=== PATIENT | male | born 1965 | race Caucasian/White ===

== ENCOUNTER 2016-08-29 21:25 | Emergency (ER) | payer OTHER ==
[~2016-08-29] VITALS: Ht 182.9 cm; Wt 117.1 kg
[2016-08-29 21:32] VITALS: TEMP 36.7; Ht 182.9 cm; Wt 117.1 kg
[2016-08-29] MEDS ORDERED: ACET-1256 PO (21:47)
[2016-08-29] MEDS ORDERED: KETOROLAC TROMETHAMINE 60 MG/2 ML VIAL IM STA (22:07)
--- NOTE | 2016-08-29 22:47 | DIAGNOSTIC IMAGING REPORT ---
RIGHT ANKLE MIN 3 VIEWS ROUTINE CLINICAL HISTORY: Right ankle pain following fall. COMPARISON: None FINDINGS: Alignment of the right ankle is anatomic. Talar dome is intact. There is no acute fracture. A 1.9 cm bony excrescence arising from the posterior aspect of the distal right tibia is not acute. IMPRESSION: 1. No acute fracture or dislocation of the right ankle. 2. 1.9 cm bony excrescence arising from the posterior aspect if the distal right tibia which is chronic and could reflect an osteochondroma or old trauma. Electronically signed by: Emigdio Adame M.D. 08/29/2016 10:46 PM Dictated Date/Time: 08/29/2016 10:44 PM
--- NOTE | 2016-08-29 22:52 | DIAGNOSTIC IMAGING REPORT ---
RIGHT FOOT MIN 3 VIEWS ROUTINE CLINICAL HISTORY: Right foot pain following fall. COMPARISON: None FINDINGS: The tarsometatarsal joints are intact. A lucency within the medial sesamoid of the great toe likely reflects a bipartite sesamoid. A fracture is considered less likely. There is mild soft tissue swelling at the level the right first metatarsophalangeal joint. No definite acute fracture within the right foot is identified. IMPRESSION: 1. No definite fracture within the right foot. 2. Lucency within the medial sesamoid of the right great toe. This favors a bipartite sesamoid although a nondisplaced sesamoid fracture could appear similar. Electronically signed by: Emigdio Adame M.D. 08/29/2016 10:51 PM Dictated Date/Time: 08/29/2016 10:48 PM
--- NOTE | 2016-08-29 22:53 | DIAGNOSTIC IMAGING REPORT ---
RIGHT SHOULDER MIN 2 VIEWS ROUTINE CLINICAL HISTORY: Right shoulder pain following fall. COMPARISON: None FINDINGS: Alignment of the right shoulder is anatomic. There is no acute fracture. There is mild arthritis of the right acromioclavicular joint. IMPRESSION: No acute fracture or dislocation of the right shoulder. Electronically signed by: Emigdio Adame M.D. 08/29/2016 10:52 PM Dictated Date/Time: 08/29/2016 10:51 PM
--- NOTE | 2016-08-29 22:54 | DIAGNOSTIC IMAGING REPORT ---
LEFT WRIST MIN 3 VIEWS ROUTINE CLINICAL HISTORY: Left wrist pain following fall. COMPARISON: None FINDINGS: Alignment of the left wrist is anatomic. No acute fracture is identified. There is soft tissue swelling of the left wrist. IMPRESSION: No acute fracture or dislocation of the left wrist. Electronically signed by: Emigdio Adame M.D. 08/29/2016 10:53 PM Dictated Date/Time: 08/29/2016 10:52 PM
--- NOTE | 2016-08-29 23:24 | EMERGENCY ROOM VISIT NOTE ---
ED Visit Note First contact with patient: 21:49 CHIEF COMPLAINT: Right shoulder, left wrist, right foot and ankle pain after a fall yesterday at work HISTORY OF PRESENT ILLNESS: Patient is a [id number] 51-year-old white male who presents emergency department for evaluation of injuries after a work accident yesterday. 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 He states that a piece of equipment began to fall, and in order to avoid being struck by the equipment, he jumped off of the work truck he was standing on. He reports that he jumped from roughly 7 feet. He landed, he states sprawled out on his abdomen, then crawled under the truck to avoid the equipment. He did not strike his head or lose consciousness. He immediately noticed some generalized stiffness and soreness. He did go back to work. He primarily complains of pain in the top of the right shoulder that radiates slightly towards the neck, dorsal left wrist pain and right foot and ankle pain. He took Tylenol for his discomfort. He has continued to work. The pain is located in the top and the front of the right shoulder, radiating to the trapezius slightly. He states that it hurts to lift the arm above shoulder height. The pain does not radiate past the deltoid region. He has a history of some right shoulder problems and did physical therapy in the past. He also complains of pain in the dorsal left wrist. It is worse with movement. He denies any elbow pain. He complains of pain primarily in the right great toe, but it radiates towards the ankle medially. He was wearing steel toed boots at the time of the injury. He presently rates his pain a 7/10. He has chronic low back pain status post lumbar fusion and denies any changes in this. He denies any neck pain. No numbness, tingling or weakness radiating into the upper or lower extremities. He denies any chest or rib pain. No shortness of breath. No abdominal pain, nausea or vomiting. REVIEW OF SYSTEMS: Review of systems as per HPI. All other systems reviewed were negative. 10 systems reviewed. PMH: Electronic medical records are reviewed and summarized as above/below. See Problem List. SOCIAL HISTORY: Patient lives at with his family. Employed. Smokes and uses chewing tobacco, social EtOH. PHYSICAL EXAM: Vital Signs: Reviewed nurse's notes. GENERAL: Patient is a well-appearing 51-year-old white male who is awake and alert and in no acute distress. HEENT: Head - normocephalic and atraumatic. Pupils are equal, round, and reactive to light. Extraocular eye muscles are intact and sclera are anicteric. Ears - bilaterally patent canals with no evidence of hemotympanum. Nose - moist nasal mucosa without evidence of trauma or discharge. Mouth - moist buccal mucosa with no trauma to the teeth or signs of malocclusion. Neck: The neck is supple and there is no pain to palpation over the posterior cervical spine and no obvious step-offs or deformities. There is no JVD or tracheal deviation. Chest: There are no signs of deformities, contusions or abrasions to the chest wall. There is no obvious crepitus or paradoxical chest rise. Heart: Regular rate, and regular rhythm. Lungs: Breath sounds equal and clear to auscultation. Abdomen: Soft, completely nontender, nondistended, with good bowel sounds. There is no sign of trauma such as contusions, abrasions or penetrations. There are no palpable pulsatile masses or hepatosplenomegaly. There is no guarding, rigidity, or rebound noted. Musculoskeletal: Examination of the right shoulder does not demonstrate any obvious deformity. No ecchymosis or abrasions are noted. The patient has pain over the distal clavicle and the acromioclavicular joint. There is no pain over the rotator cuff insertion of the proximal biceps tendon. He has some tenderness in the trapezius muscle. Passive internal and external rotation are full. He has pain with forward flexion and abduction greater than 90. Good rotator cuff strength testing. Right upper extremity is neurovascularly intact. Examination of the left wrist notes mild dorsal soft tissue swelling. He is tender over the dorsal aspect of the wrist. No tenderness anatomic snuffbox tenderness noted. No pain over the proximal radial head. Left upper extremity is neurovascularly intact. Examination of the right foot and ankle show dorsal soft tissue swelling and ecchymosis, primarily in the first MTP and first toe. The great toe is tender to palpation, pain extends into the first metatarsal. There is also pain over the medial malleolus. Lisfranc joint is negative. Skin is intact. Right lower extremity is neurovascularly intact. Neuro: The patient is awake and alert and easily able to follow commands. Muscle strength is 5 out of 5 in all 4 extremities. Otherwise, neuro exam is unremarkable. Back: The entire cervical, thoracic, lumbar, and sacral spine were palpated. Well-healed midline lumbar surgical scar and right iliac crest scar noted. No discomfort over the cervical, thoracic spine and lumbar spine. There are no obvious step-offs or deformities noted. There are no obvious signs of trauma such as contusions abrasions penetrations noted to the back. EMERGENCY DEPARTMENT COURSE: The patient was medicated with Toradol 60 mg IM. Right shoulder, left wrist, right foot and ankle x-rays were all obtained. Ankle, shoulder and wrist x-rays were negative for acute fracture or bony abnormality. Foot x-ray noted a possible fracture of a sesamoid near the great toe, which is the area of maximal tenderness. This was discussed with the patient. Conservative care measures were advised. Possibility of a soft tissue injury including rotator cuff tear or labral injury wrist sprain, ankle and foot sprain were discussed with the patient. Supportive care measures were discussed. He was encouraged to follow up with orthopedics as covered by his Worker's Compensation insurance for further care and evaluation of his injuries if his symptoms are not improving in the next 3-5 days. Differential diagnoses entertained included acromioclavicular separation, proximal humerus fracture, shoulder dislocation, rotator cuff tear, biceps tendon rupture, wrist sprain, wrist fracture, ankle fracture, ankle sprain, foot sprain, foot fracture, Lisfranc injury, among others. RIGHT ANKLE MIN 3 VIEWS ROUTINE CLINICAL HISTORY: Right ankle pain following fall. COMPARISON: None FINDINGS: Alignment of the right ankle is anatomic. Talar dome is intact. There is no acute fracture. A 1.9 cm bony excrescence arising from the posterior aspect of the distal right tibia is not acute. IMPRESSION: 1. No acute fracture or dislocation of the right ankle. 2. 1.9 cm bony excrescence arising from the posterior aspect if the distal right tibia which is chronic and could reflect an osteochondroma or old trauma. RIGHT FOOT MIN 3 VIEWS ROUTINE CLINICAL HISTORY: Right foot pain following fall. COMPARISON: None FINDINGS: The tarsometatarsal joints are intact. A lucency within the medial sesamoid of the great toe likely reflects a bipartite sesamoid. A fracture is considered less likely. There is mild soft tissue swelling at the level the right first metatarsophalangeal joint. No definite acute fracture within the right foot is identified. IMPRESSION: 1. No definite fracture within the right foot. 2. Lucency within the medial sesamoid of the right great toe. This favors a bipartite sesamoid although a nondisplaced sesamoid fracture could appear similar. RIGHT SHOULDER MIN 2 VIEWS ROUTINE CLINICAL HISTORY: Right shoulder pain following fall. COMPARISON: None FINDINGS: Alignment of the right shoulder is anatomic. There is no acute fracture. There is mild arthritis of the right acromioclavicular joint. IMPRESSION: No acute fracture or dislocation of the right shoulder. LEFT WRIST MIN 3 VIEWS ROUTINE CLINICAL HISTORY: Left wrist pain following fall. COMPARISON: None FINDINGS: Alignment of the left wrist is anatomic. No acute fracture is identified. There is soft tissue swelling of the left wrist. IMPRESSION: No acute fracture or dislocation of the left wrist. Problem List Surgical Problems: (1) History of lumbar fusion Status: Resolved Current/Historical Medications Scheduled PRN Acetaminophen (Tylenol), 1,000 MG PO Q6H PRN for Pain Allergies Coded Allergies: No Known Allergies (Unverified , 08/30/12) Vital Signs Date Time Temp Pulse Resp B/P (MAP) Pulse Ox O2 Delivery O2 Flow Rate FiO2 08/29/16 21:32 36.7 84 18 142/78 95 Room Air Medications Administered Medications (Trade) Dose Ordered Sig/Bart Route Start Time Stop Time Status Last Admin Dose Admin Ketorolac Tromethamine (Toradol Inj) 60 mg NOW STAT IM 08/29/16 22:07 08/29/16 22:08 DC 08/29/16 22:39 60 MG Departure Information Impression Primary Impression: Right shoulder injury Additional Impressions: Left wrist sprain Right foot sprain Fall Referrals No Doctor, Assigned (PCP) Patient Instructions [facility] Additional Instructions Ibuprofen(Motrin, Advil) may be used for fever or pain. Use 600mg every six hours as needed. Take with food. Avoid using more than 2400mg in a 24 hour period. Do not use 2400mg per day for more than three consecutive days without physician direction. Prolonged inappropriate use can lead to stomach upset or ulcers. This medication can be taken if you need to drive, work, or perform activities which may be dangerous when taking narcotic pain medication. (AND/OR) Acetaminophen(Tylenol) may be used for fever or pain. Use 1000mg every six hours as needed. Avoid using more than 3000mg in a 24 hour period. This medication can be taken if you need to drive, work, or perform activities which may be dangerous when taking narcotic pain medication. Ice compresses for 20 minutes at a time four times daily for 2-3 days. Rest and elevate your injuries. Continue current medications. Return to the ER immediately for any numbness, tingling, severe pain, extreme swelling in the extremity or as needed. Follow-up with orthopedics for further care and evaluation of your injuries if your symptoms are not improving. Problem Qualifiers
[2016-08-29 23:30] VITALS: BP 132/85; PULSE 74; O2SAT 94
== END 2016-08-29 23:30 | disposition home or self-care (01) ==
LOC: C.EDB 21:31
DX: S49.91XA Unspecified injury of right shoulder and upper arm, initial encounter (principal); S63.502A Unspecified sprain of left wrist, initial encounter; S93.601A Unspecified sprain of right foot, initial encounter; W17.89XA Other fall from one level to another, initial encounter; F17.200 Nicotine dependence, unspecified, uncomplicated

== ENCOUNTER 2019-07-28 05:01 | Observation (INO) ==
--- NOTE | 2019-07-21 16:08 | PAT Medication Instructions ---
Medication Instructions Date of Service July 21, 2019 Home Medications Medication Instructions Recorded tramadol 50 mg tablet 50 mg PO Q6 PRN #30 tab 05/11/19 acetaminophen 325 mg tablet 325 mg PO Q6H PRN tamsulosin 0.4 mg capsule 0.4 mg PO QPM tramadol 50 mg tablet 50 mg PO Q6 PRN gabapentin 300 mg PO BID Take morning of surgery With a small sip of water, OTHERWISE NOTHING TO EAT OR DRINK AFTER MIDNIGHT: acetaminophen 325 mg tablet 325 mg PO Q6H PRN (if needed, may be taken up to four hours before surgery) tramadol 50 mg tablet 50 mg PO Q6 PRN (if needed, may be taken up to four hours before surgery) gabapentin 300 mg PO BID Take evening before surgery acetaminophen 325 mg tablet 325 mg PO Q6H PRN (if needed) tamsulosin 0.4 mg capsule 0.4 mg PO QPM tramadol 50 mg tablet 50 mg PO Q6 PRN (if needed) gabapentin 300 mg PO BID Other Notes If you have any questions please call us at [phone] or [phone] or [phone] or [phone]
--- NOTE | 2019-07-22 16:13 | Anesthesiology Consultation ---
Date of Service July 22, 2019 Assessment & Plan (1) Encounter for pre-operative examination: COVID Status: As of 07/20 nurse assessment, patient denies travel to endemic area, known exposure/sick contacts, symptoms, or testing for coronavirus. 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 Wears a mask at work, only one other coworker. Will be tested for covid on 07/23. Chart Review Chart Review: Acceptable Risk for Surgery and Patient seen in Pre Admission Testing Teaching & Discussion Instructed NPO after midnight before surgery, except medications with 15 cc of water. Medication instructions provided according to the PAT guidelines. History Surgery Operation Date: 07/28/19 07:30 Proposed Procedures p Robotic Prostatectomy - Chris Angulo MD Height/Weight Height: 6 ft Weight: 122.7 kg Allergies Allergy/AdvReac Type Severity Reaction Status Date / Time No Known Allergies Allergy Unverified 07/21/19 08:19 Medications Home Medications Medication Instructions Recorded Confirmed Last Taken acetaminophen 325 mg tablet 325 mg PO Q6H PRN 02/06/19 07/21/19 Unknown tamsulosin 0.4 mg capsule 0.4 mg PO QPM 04/03/19 07/21/19 Unknown tramadol 50 mg tablet 50 mg PO Q6 PRN #30 tab 05/11/19 07/21/19 Unknown gabapentin 300 mg PO BID 07/21/19 07/21/19 Unknown Past Medical History Medical History (Updated 07/23/19 @ 08:27 by Ronan Ortiz) Crush injury of hand December left hand injury-- saw Dr. 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 Son No problems noted. Other Heart disease Past Surgical History Surgical History History of back surgery 1990 fusion lumbar Past Anesthesia History No Hx of Anesthesia Complications and No Family Hx of Anesthesia Complications History of PONV No Hx of PONV and No Hx of Motion Sickness Social History Smoking Status: Former smoker tobacco type: cigarettes Smoking cigarettes per day: 1 pppd previously, now only occ cig Do You Dip or Chew Tobacco: Yes (1 can 2 days / advised) Hx Alcohol Use: Yes Alcohol type: beer alcohol intake frequency: a few times a week Hx Substance Use: No substance use type: does not use Review of Systems Pt denies any recent chest pain, shortness of breath, palpitations, cough, fever or URI. Occ reflux only with spicy food. Physical Exam Vital Signs BP: 145/77 P: 70bpm SPO2: 96% RA T: 98.3 F R: 16 Constitutional + obese ENMT Mouth: + dentition abnormality (lower R molar missing) and + chipped teeth (upper central incisor back side chipped); no loose teeth Thyromental Distance: < 3.5 Finger Breadths (3) Mallampati Class: II Neck + thick neck and + facial hair (short goatee); neck extension not limited Respiratory normal respiratory effort Auscultation: lungs clear to auscultation bilaterally Cardiovascular Rate/Rhythm: regular rate and regular rhythm Heart Sounds: no murmur Testing Laboratory Results 07/22/19 15:22 07/22/19 15:22 Urine Color Yellow 07/22/19 Unknown Urine Appearance Clear (Clear) 07/22/19 Unknown Urine pH 5.0 (4.5-7.5) 07/22/19 Unknown Ur Specific [place] 1.022 (1.000-1.030) 07/22/19 Unknown Urine Protein Negative (Negative) 07/22/19 Unknown Urine Glucose (UA) Negative (Negative) 07/22/19 Unknown Urine Ketones Negative (Negative) 07/22/19 Unknown Urine Nitrite Negative (Negative) 07/22/19 Unknown Ur Leukocyte Esterase Negative (Negative) 07/22/19 Unknown Blood Type O Positive 07/22/19 15:22 Antibody Screen NEGATIVE 07/22/19 15:22 Electrocardiogram Date: 07/22/19 Findings: + SB @ (58bpm) Chest X-Ray Date: 07/22/19 Findings: + NAD
[2019-07-22 16:46] LABS: Basophils # (auto) 0.04 K/uL (0-0.2); Basophils % (auto) 0.5 %; Eosinophils # (auto) 0.12 K/uL (0-0.5); Eosinophils % (auto) 1.4 %; Hematocrit (blood only) 43.9 % (42-52); Hemoglobin 15.5 g/dL (14.0-18.0); Immature Granulocytes # (auto) 0.03 K/uL (0.00-0.02); Immature Granulocytes % (auto) 0.3 %; Lymphocytes % (auto) 31.4 %; Mean Corpuscular Hemoglobin 31.4 pg (25-34); Mean Corpuscular Hgb Conc 35.3 g/dL (32-36); Mean Corpuscular Volume 88.9 fL (80-100); Mean Platelet Volume 9.2 fL (7.4-10.4); Monocytes # (auto) 0.57 K/uL (0.11-0.59); Monocytes % (auto) 6.6 %; Neutrophils # (auto) 5.13 K/uL (1.4-6.5); Neutrophils % (auto) 59.8 %; Platelet Count 178 K/uL (130-400); RDW Coefficient of Variation 13.3 % (11.5-14.5); RDW Standard Deviation 43.2 fL (36.4-46.3); Red Blood Count 4.94 M/uL (4.7-6.1); White Blood Count 8.59 K/uL (4.8-10.8)
[2019-07-22 16:51] LABS: Appearance Urine Clear (Clear); Bilirubin Urine Negative (Negative); Blood Urine Negative (Negative); Color Urine Yellow; Glucose Urine UA Negative (Negative); Ketones Urine Negative (Negative); Leukocyte Esterase Urine Negative (Negative); Nitrite Urine Negative (Negative); Protein Urine Negative (Negative); Specific Gravity Urine 1.022 (1.000-1.030); Urobilinogen Urine Negative (Negative)
--- NOTE | 2019-07-22 16:57 | XRay Report ---
XR chest Pre-admission PA/Lat CLINICAL HISTORY: pat COMPARISON STUDY: No previous studies for comparison. FINDINGS: The bones soft tissues and hemidiaphragms are normal. The cardiomediastinal silhouette is n ormal. The lungs are clear. The pulmonary vasculature is normal. IMPRESSION: Negative chest. ACT 112: Negative or not required by law. The above report was generated using voice recognition software. It may contain grammatical, syntax or spelling errors. Electronically signed by: Matias Herrera M.D. 07/22/2019 4:56 PM
[2019-07-22 17:18] LABS: BUN Creatinine Ratio 12.6 (10-20); Calcium 9.3 mg/dl (8.5-10.1); Creatinine Clr Calc Pharmacy 129.8 ml/min; Est GFR (African American) 112.9; Est GFR (Non-African American) 97.4; Potassium 4.8 mmol/L (3.5-5.1)
--- NOTE | 2019-07-23 14:49 | Electrocardiogram Report ---
Test Reason : Blood Pressure : / mmHG Vent. Rate : 058 BPM Atrial Rate : 058 BPM P-R Int : 148 ms QRS Dur : 092 ms QT Int : 408 ms P-R-T Axes : 067 050 050 degrees QTc Int : 400 ms Sinus bradycardia Otherwise normal ECG No previous ECGs available Confirmed by Shubham Jain ([id number]) on 07/23/2019 2:49:26 PM Referred By: Chris Angulo Confirmed By:Shubham Jain
[2019-07-28] MEDS ORDERED: CEFAZOLIN 3000MG 72.5 ML IV SCH (06:00)
[2019-07-28] MEDS ORDERED: HEPARIN SOD 5,000 UNIT/0.5 ML VIAL SQ SCH (06:00)
[2019-07-28] MEDS ORDERED: LR 15ML/HR IV SCH (06:00)
[2019-07-28] MEDS ORDERED: ACETAMINOPHEN 1000 MG/100 ML IV IV ONE (06:32)
[2019-07-28] MEDS ORDERED: MIDAZOLAM HCL 1 MG/ML 2ML VIAL ONE (06:42)
[2019-07-28] MEDS ORDERED: fentaNYL citrate 100 MCG/2 ML VIAL ONE (06:42)
[2019-07-28] MEDS ORDERED: HYDROmorphone INJ 2 MG/ML SYR/VIAL ONE (06:42)
[2019-07-28] MEDS ORDERED: HYDROmorphone INJ 1 MG/ML SYRINGE IV PRN (06:56)
[2019-07-28] MEDS ORDERED: ONDANSETRON INJ 2 MG/ML 2 ML VIAL IV PRN ×2 (06:56→13:21)
[2019-07-28] MEDS ORDERED: ATROPINE SULFATE 0.1 MG/ML 10ML SYR IV PRN (06:56)
[2019-07-28] MEDS ORDERED: KETOROLAC 30 MG/ML VIAL IV PRN (06:56)
[2019-07-28] MEDS ORDERED: LABETALOL HCL IV 5 MG/ML 20ML IV PRN (06:56)
[2019-07-28] MEDS ORDERED: BUPIVACAINE 0.5 % 5 MG/1 ML MPF 30ML VIAL ONE (07:10)
--- NOTE | 2019-07-28 07:19 | History & Physical Bridge Note ---
Date of Service July 28, 2019 History & Physical Bridge Note I have examined the patient, reviewed the History & Physical and in the interval since the performance of the History & Physical I have noted the following changes of clinical significance: no changes noted
[2019-07-28] MEDS ORDERED: BELLADONNA/OPIUM SUPP 60 MG SUPP PR ONE (07:37)
[2019-07-28] MEDS ORDERED: LIDOCAINE HCL 2% 2 ML VIAL/AMP(20MG/ML) INFIL ONE (08:05)
[2019-07-28] MEDS ORDERED: ROCURONIUM BROMIDE 10 MG/ML 5 ML VIAL ONE (08:05)
[2019-07-28] MEDS ORDERED: PROPOFOL IV EMULSION 10 MG/ML 20 ML VIAL IV ONE (08:05)
[2019-07-28] MEDS ORDERED: DEXAMETHASONE SOD INJ 4 MG/ML VIAL ONE (08:06)
[2019-07-28] MEDS ORDERED: ONDANSETRON INJ 2 MG/ML 2 ML VIAL ONE (08:06)
[2019-07-28] MEDS ORDERED: GLYCOPYRROLATE 0.2 MG/ML VIAL ONE ×2 (08:06→10:09)
[2019-07-28] MEDS ORDERED: ePHEDrine sulfate 50 MG/ML SYR ONE (08:55)
[2019-07-28] MEDS ORDERED: LARYING-O-JET KIT (LTA) ONE (08:57)
[2019-07-28] MEDS ORDERED: BELLADONNA/OPIUM SUPP 60 MG SUPP PR PRN (09:23)
[2019-07-28] MEDS ORDERED: NEOSTIGMINE METHYLSULFATE 5 MG/5 ML SYR ONE (10:09)
[2019-07-28] MEDS ORDERED: SODIUM CHLORIDE 0.9% INJ 10 ML VIAL ONE (10:25)
[2019-07-28] MEDS ORDERED: CEFAZOLIN 250 MG/ML 1 GM VIAL ONE (10:25)
--- NOTE | 2019-07-28 12:11 | Post Operative Brief Note ---
PG Immediate Post Op with CF Date of Surgery July 28, 2019 Pre & Post Diagnosis Operation Date: 07/28/19 07:30 Pre-Op Diagnosis: Prostate Cancer Post-Op Diagnosis: Prostate Cancer I identified the patient and participated in the time-out.: Yes Procedure Operation Date: 07/28/19 07:30 Actual Procedures p Robotic Assisted Laparoscopic Prostatectomy with Bilateral Pelvic Lymph Node Dissection(Not Applicable) - Chris Angulo MD Surgeon Michael Angulo MD Schedule Maker Chioma Crowder and Leonor Reeder Estimated Blood Loss 150 Findings Consistent with Post-Op Diagnosis Specimens Specimen Description: Permanent A. Jackelin prostatic fat B. Right pelvic lymph node (fresh in NSS) C. Left pelvic lymph node (fresh in NSS) D. Prostate and seminal vessicles Drains Garcia Catheter and Rakesh-Dotson Drain (10Fr Round)
--- NOTE | 2019-07-28 12:25 | Operative Report ---
PG Post Operative Report Pre & Post Diagnosis Operation Date: 07/28/19 07:30 Pre-Op Diagnosis: Prostate Cancer Post-Op Diagnosis: Prostate Cancer I identified the patient and participated in the time-out.: Yes Procedure Operation Date: 07/28/19 07:30 Actual Procedures p Robotic Assisted Laparoscopic Prostatectomy with Bilateral Pelvic Lymph Node Dissection(Not Applicable) - Chris Angulo MD Surgeon Michael Angulo MD Change Management Chioma Crowder and Leonor Reeder Estimated Blood Loss 150 Findings Consistent with Post-Op Diagnosis Specimens 1. Periprostatic fat 2. Prostate and seminal vesicles 3. Left pelvic lymph nodes 4. Right pelvic lymph nodes Description of Procedure The patient was identified in the preoperative holding area, appropriate informed consents were reviewed and completed, and he was transported to the operating suite. Subcutaneous heparin was administered in the pre-operative holding area. Upon arrival in the operating suite, he received appropriate antibiotics and general anesthesia. He was positioned in dorsal lithotomy, a B&O suppository was inserted after digital rectal exam, and he was prepped and draped in standard fashion. A Garcia catheter was inserted in the sterile field. A Veress needle was passed per umbilicus with uniform insufflation of the abdomen to 15mmHg. He was placed in steep Trendelenburg position. A periumbilical incision was then made to accommodate a 12mm Visiport with 10mm 0degree laparoscope. Inspection of the abdomen was carried out, and there was no evidence of traumatic entry or injury secondary to the Veress needle. After confirming a clear anterior abdominal wall, ports were subsequently placed in standard robotic prostatectomy fashion without incident. To begin the robotic portion of the case, the left lateral aspect of the sigmoid was mobilized off of the left pelvic side wall to allow the pouch of Asael to be appropriately visualized. I then made an incision in the pouch of Asael, overlying the seminal vesicles. Both SVs as well as the ampullae of the vasa were entirely dissected, with the vasa transected 3cm from the prostate. The medial umbilical ligaments were then controlled with bipolar electrocautery just inferior to the umbilicus. Following cauterization, they were divided utilizing monopolar cautery. A peritoneal incision was carried from this location to the medial aspect of the internal inguinal rings bilaterally with care to avoid opening through the ring. This incision was concluded when the vas deferens was reached. Dissection of the bladder and prostate off of the posterior aspect of the pubic arch was completed allowing full visualization of the prostate. The fat overlying the prostate was removed en bloc and passed off the table as a specimen labeled "periprostatic fat". The endopelvic fascia was cleared during this portion of the procedure, and subsequently opened - first on the right and then the left. The incision through the endopelvic fascia began near the prostate-bladder junction and was carried to the apex with extreme care to preserve all lateral levator musculature as well as the periurethral musculature and sphincter complex. I additionally preserved the puboprostatic ligaments. I then controlled the DVC with a 3-0 V-lock suture in overlapping/f igure of 8 fashion. The lymph node dissection was then conducted. External iliac vessels were identified on the pelvic side wall. The packet of fat and lymphatic tissue that resides just under the iliac vein was elevated and off of the vein with a split and roll technique. The packet was dissected laterally to the circumflex vein and distally to the obturator nerve which was preserved. The proximal aspect of the packet was carried towards the bifurcation of the iliac vessels. A combination of monopolar and bipolar cautery were used to assist with control. After completing the dissection on both sides, the packets were collected and passed off of the table as specimens labeled "pelvic lymph nodes". My attention then returned to the prostate, with identification of the bladder neck aided by gentle traction on the Garcia catheter and lateral to medial pressure at the presumed level of the bladder neck with the robotic instruments. An anterior cystotomy was made, the Garcia balloon deflated and the catheter guided through the incision to allow anterior retraction. I attempted to preserve maximal bladder neck musculature as I circumferentially dissected around the bladder neck. Of note, he had an intravesical median lobe which I carefully dissected around. This left a relatively wide bladder neck but with no encroachment upon the UOs. After incision through the posterior aspect of the mucosa, the dissection was carried through detrusor muscle until the bilateral ampullae of the vasa were identified. The previously dissected vasa and SVs were brought through the incision and used to elevated the prostate anteriorly. A posterior plane behind the prostate was then developed - splitting Denonvilliers's fascia. This dissection was carried as far as poss ible towards the apex as well as far as possible laterally. An incision in the lateral prostatic fascia was then made bilaterally to facilitate control of the vascular pedicles and preservation of the nerve bundles. Vasculature running along the posterior/lateral aspect of the prostate was preserved as well as the tissue containing the nerves. The pedicles were then controlled with a series of Weck clips. The apical attachments of the prostate were remaining at that stage. The DVC was divided after control with bipolar cautery over the prostate. Continuous inspection from anterior and lateral views allowed me to closely follow the apical contour of the prostate and maximally preserve urethral length and tissue. The prostate was entirely freed at that point, and collected in an EndoCatch bag before being moved out of the field of vision. Hemostasis was confirmed. Several oeqiee-wp-wrwwt sutures with a 3 OV lock stitch were used to control oozing veins. I then reconstructed the bladder neck given the capacious bladder neck from the median lobe. I utilized a 30V lock suture in lycncr-dn-fiqde fashion at 3:00 and 9:00. A posterior reconstructive stitch was placed bringing the cut edge of Denovilliers fascia to the periurethral tissues. Anastomosis of the bladder and urethra was completed utilizing a double armed V-Lock stitch. A new Garcia catheter was inserted and the anastomosis tested with irrigation. There was no evidence of leak. A Zenon style stitch was placed bilaterally to functionally marsupialize the area of the lymph node dissection. The robot was undocked, the specimen extracted through expansion of the veronika- umbilical camera port. The fascia was closed with a series of 0-PDS figure of 8 stitches. The right registered dental assistant port was closed in two layers - with a figure of 8 0-Vicryl to reapproximate the fascia followed by 4-0 Monocryl to close the skin. Monocryl was used to close all other skin incisions. All wounds were dressed with Dermabond. The case was concluded and the patient taken periurethral tissues. PACU in stable condition. I was assisted by Chioma Crowder and Leonor Reeder throughout the case. They were present from incision to closure. I attest to the content of the Intraoperative Record and any orders documented therein. Any exceptions are noted below.
[2019-07-28 12:54] LABS: BUN Creatinine Ratio 11.7 (10-20); Calcium 8.1 mg/dl (8.5-10.1); Creatinine Clr Calc Pharmacy 95.1 ml/min; Est GFR (African American) 80.6; Est GFR (Non-African American) 69.5
[2019-07-28 12:58] LABS: Basophils # (auto) 0.02 K/uL (0-0.2); Basophils % (auto) 0.1 %; Eosinophils # (auto) 0.01 K/uL (0-0.5); Eosinophils % (auto) 0.1 %; Hematocrit (blood only) 46.6 % (42-52); Hemoglobin 15.8 g/dL (14.0-18.0); Immature Granulocytes # (auto) 0.09 K/uL (0.00-0.02); Immature Granulocytes % (auto) 0.6 %; Lymphocytes # (auto) 1.07 K/uL (1.2-3.4); Lymphocytes % (auto) 7.2 %; Mean Corpuscular Hemoglobin 30.2 pg (25-34); Mean Corpuscular Volume 89.1 fL (80-100); Mean Platelet Volume 9.4 fL (7.4-10.4); Monocytes # (auto) 0.19 K/uL (0.11-0.59); Monocytes % (auto) 1.3 %; Neutrophils # (auto) 13.47 K/uL (1.4-6.5); Neutrophils % (auto) 90.7 %; Platelet Count 166 K/uL (130-400); RDW Coefficient of Variation 13.1 % (11.5-14.5); RDW Standard Deviation 42.6 fL (36.4-46.3); Red Blood Count 5.23 M/uL (4.7-6.1); White Blood Count 14.85 K/uL (4.8-10.8)
[2019-07-28 13:04] LABS: Mean Corpuscular Hgb Conc 33.9 g/dL (32-36)
[2019-07-28] MEDS ORDERED: MoRPHine SULFATE 10 MG/ML CARP/VIAL IV PRN (13:21)
[2019-07-28] MEDS ORDERED: OXYCODONE HCL IR 5 MG TAB (IMMEDIATE RELEASE) PO PRN ×2 (13:21)
[2019-07-28] MEDS ORDERED: MoRPHine SULFATE 4 MG/ML 1 ML CARP\\VIAL IV PRN (13:21)
[2019-07-28] MEDS: ACETAMINOPHEN 1,000 MG/100 ML VIAL IV SCH ×2 (14:02→21:41)
--- NOTE | 2019-07-28 14:13 | Anesthesiology Progress Note ---
Date of Service July 28, 2019 Anesthesia Post Procedure Vital Signs Vital Signs: Temp Pulse Pulse Resp BP Pulse Ox 07/28/19 13:59 64 15 93/58 L 96 07/28/19 13:21 36.2 C L 68 15 104/71 95 07/28/19 13:05 57 L 13 107/65 95 07/28/19 12:55 36.2 C L 65 12 109/66 94 07/28/19 12:45 65 12 103/63 94 07/28/19 12:35 65 14 121/63 94 07/28/19 12:25 65 15 115/66 95 07/28/19 12:15 74 16 120/93 90 07/28/19 12:09 36.3 C L 75 12 85/63 L 92 07/28/19 05:37 37.2 C 57 L 16 143/79 H 96 Pain Intensity Left Hand: Pain Intensity: 5 Lower Abdomen: Pain Intensity: 9 Transfer of Care Handoff Completed per policy Notes Mental Status: alert / awake / arousable Patient Amnestic to Procedure: Yes Nausea / Vomiting: adequately controlled Pain: adequately controlled Airway Patency, RR, SpO2: stable & adequate BP & HR: stable & adequate Hydration State: stable & adequate Anesthetic Complications: no major complications apparent
[2019-07-28] MEDS: LACTATED RINGER'S 1,000 ML IV SCH ×2 (14:24→22:35)
[2019-07-28] MEDS ORDERED: OXYBUTYNIN CHLORIDE 5 MG TAB PO PRN (14:42)
[2019-07-28] MEDS: KETOROLAC TROMETHAMINE 15 MG/ML VIAL IV PRN (16:31)
[2019-07-28] MEDS: CEFAZOLIN 2000MG 2,000 MG/15 ML SYR IV SCH (18:14)
[2019-07-28] MEDS: GABAPENTIN 300 MG CAP PO SCH (21:48)
[2019-07-28] MEDS: HEPARIN SOD 5,000 UNIT/0.5 ML VIAL SQ SCH (21:49)
[2019-07-29] MEDS: CEFAZOLIN 2000MG 2,000 MG/15 ML SYR IV SCH (02:18)
[2019-07-29 05:49] LABS: Basophils # (auto) 0.01 K/uL (0-0.2); Basophils % (auto) 0.1 %; Eosinophils # (auto) 0.01 K/uL (0-0.5); Eosinophils % (auto) 0.1 %; Hematocrit (blood only) 41.3 % (42-52); Hemoglobin 13.5 g/dL (14.0-18.0); Immature Granulocytes # (auto) 0.02 K/uL (0.00-0.02); Immature Granulocytes % (auto) 0.1 %; Lymphocytes # (auto) 2.11 K/uL (1.2-3.4); Lymphocytes % (auto) 15.5 %; Mean Corpuscular Hemoglobin 29.5 pg (25-34); Mean Corpuscular Hgb Conc 32.7 g/dL (32-36); Mean Corpuscular Volume 90.4 fL (80-100); Mean Platelet Volume 9.2 fL (7.4-10.4); Monocytes # (auto) 0.96 K/uL (0.11-0.59); Neutrophils # (auto) 10.52 K/uL (1.4-6.5); Neutrophils % (auto) 77.2 %; Platelet Count 169 K/uL (130-400); RDW Coefficient of Variation 13.1 % (11.5-14.5); RDW Standard Deviation 43.1 fL (36.4-46.3); Red Blood Count 4.57 M/uL (4.7-6.1); White Blood Count 13.63 K/uL (4.8-10.8)
[2019-07-29 06:19] LABS: BUN Creatinine Ratio 11.6 (10-20); Calcium 7.9 mg/dl (8.5-10.1); Creatinine Clr Calc Pharmacy 127.5 ml/min; Est GFR (African American) 112.9; Est GFR (Non-African American) 97.4; Potassium 4.5 mmol/L (3.5-5.1)
[2019-07-29] MEDS: ACETAMINOPHEN 1,000 MG/100 ML VIAL IV SCH ×3 (06:25→21:36)
--- NOTE | 2019-07-29 07:42 | Urology Progress Note ---
Date of Service July 29, 2019 Assessment & Plan (1) Prostate CA: POD#1 s/p RALP w/ LND - recovery on pace thus far - advance diet - ambulate - pos d/c home this afternoon vs tomorrow Subjective doing well this AM some oozing from two port sites yesterday improved this AM urine clear labs stable pain tolerable has ambulated in the room but not the [place] Physical Exam Physical Exam: Incisions appropriate urine clear Results & Data Vital Signs (Past 12 Hours) Vital Signs Temp Pulse Resp BP Pulse Ox 07/29/19 03:12 36.7 C 51 L 16 140/76 92 07/28/19 23:39 36.8 C 69 16 114/74 93 07/28/19 19:49 36.4 C L 75 17 121/67 94 PG Care Time/CCT Total # of Minutes Spent Total Time Spent with Patient: Total time spent is greater than 50% in coordination of care (as documented) at patient's floor/unit and/or counseling patient: Coding Level of Care Code None Diagnoses Prostate CA C61
[2019-07-29] MEDS: HEPARIN SOD 5,000 UNIT/0.5 ML VIAL SQ SCH ×2 (08:36→21:37)
[2019-07-29] MEDS: GABAPENTIN 300 MG CAP PO SCH ×2 (08:36→21:37)
--- NOTE | 2019-07-29 08:36 | Anesthesiology Progress Note ---
Date of Service July 29, 2019 Anesthesia Post Procedure Vital Signs Vital Signs: Temp Pulse Pulse Resp BP Pulse Ox 07/29/19 07:53 36.6 C 55 L 18 123/78 95 07/29/19 03:12 36.7 C 51 L 16 140/76 92 07/28/19 23:39 36.8 C 69 16 114/74 93 07/28/19 19:49 36.4 C L 75 17 121/67 94 07/28/19 15:34 36.3 C L 67 16 115/70 07/28/19 14:18 36.2 C L 73 18 110/71 95 07/28/19 13:59 64 15 93/58 L 96 07/28/19 13:21 36.2 C L 68 15 104/71 95 07/28/19 13:05 57 L 13 107/65 95 07/28/19 12:55 36.2 C L 65 12 109/66 94 07/28/19 12:45 65 12 103/63 94 07/28/19 12:35 65 14 121/63 94 07/28/19 12:25 65 15 115/66 95 07/28/19 12:15 74 16 120/93 90 07/28/19 12:09 36.3 C L 75 12 85/63 L 92 Pain Intensity Left Hand: Pain Intensity: 5 Lower Abdomen: Pain Intensity: 6 Notes Mental Status: alert / awake / arousable and participated in evaluation Nausea / Vomiting: adequately controlled Pain: adequately controlled Airway Patency, RR, SpO2: stable & adequate BP & HR: stable & adequate Hydration State: stable & adequate Anesthetic Complications: no major complications apparent and Pt Satisfied with anesthetic care
[2019-07-29] MEDS: KETOROLAC TROMETHAMINE 15 MG/ML VIAL IV PRN ×2 (13:08→23:42)
[2019-07-30] MEDS: ACETAMINOPHEN 1,000 MG/100 ML VIAL IV SCH (05:50)
[2019-07-30 06:32] LABS: Basophils # (auto) 0.04 K/uL (0-0.2); Basophils % (auto) 0.4 %; Eosinophils # (auto) 0.11 K/uL (0-0.5); Eosinophils % (auto) 1.2 %; Hematocrit (blood only) 39.3 % (42-52); Hemoglobin 13.4 g/dL (14.0-18.0); Immature Granulocytes # (auto) 0.03 K/uL (0.00-0.02); Immature Granulocytes % (auto) 0.3 %; Lymphocytes # (auto) 2.53 K/uL (1.2-3.4); Lymphocytes % (auto) 26.9 %; Mean Corpuscular Hemoglobin 30.6 pg (25-34); Mean Corpuscular Hgb Conc 34.1 g/dL (32-36); Mean Corpuscular Volume 89.7 fL (80-100); Mean Platelet Volume 9.5 fL (7.4-10.4); Monocytes # (auto) 0.79 K/uL (0.11-0.59); Monocytes % (auto) 8.4 %; Neutrophils # (auto) 5.92 K/uL (1.4-6.5); Neutrophils % (auto) 62.8 %; Platelet Count 149 K/uL (130-400); RDW Coefficient of Variation 13.2 % (11.5-14.5); RDW Standard Deviation 43.3 fL (36.4-46.3); Red Blood Count 4.38 M/uL (4.7-6.1); White Blood Count 9.42 K/uL (4.8-10.8)
[2019-07-30 07:00] LABS: BUN Creatinine Ratio 16.8 (10-20); Calcium 8.1 mg/dl (8.5-10.1); Creatinine Clr Calc Pharmacy 133.6 ml/min; Est GFR (Non-African American) 99.3
[2019-07-30] MEDS: HEPARIN SOD 5,000 UNIT/0.5 ML VIAL SQ SCH (08:36)
[2019-07-30] MEDS: GABAPENTIN 300 MG CAP PO SCH (08:37)
--- NOTE | 2019-07-30 09:31 | Discharge Summary ---
Date of Service July 30, 2019 Admission HPI Per Admitting Provider Prostate cancerpresenting for robotic prostatectomy Principal Diagnosis Prostate cancer Discharge Data Allergies Allergy/AdvReac Type Severity Reaction Status Date / Time No Known Allergies Allergy Verified 07/28/19 05:35 Procedures Performed Operation Date: 07/28/19 07:30 Actual Procedures p Robotic Assisted Laparoscopic Prostatectomy with Bilateral Pelvic Lymph Node Dissection(Not Applicable) - Chris Angulo MD Hospital Course (1) Prostate CA: Patient admitted for a robotic prostatectomy - details of the procedure as dictated previously in my operative report - in summary, he tolerated the procedure very well - he was in stable condition overnight with appropriate urine output and stable labs - he was subsequently discharged home with a goode catheter - he was in stable condition at the time of discharge Total Time Total Time Spent Total Time Spent (In Minutes): 20 Total Time Includes: Examination of the Patient, Discharge Planning, Medication Reconciliation, Communication With Other Providers and Other Discharge Plan Discharge Items Patient Disposition: Home - Self-Care Reason For Visit: Prostate Cancer Discharge Diagnosis: Prostate Cancer Activity: Per Instructions section Lifting: No more than 25 pounds Bathing Comment: No tub baths, okay to shower tonight. Sexual Activity: Wait until after follow-up appointment Exercise/Sports: Wait until after follow-up appointment Driving/Machine Use: Do not drive while taking narcotic pain medication Non-emergency contact: Surgeon and Urologist Call non-emergency contact if: your pain is not controlled, your pain is concerning for you, your temperature is above 101, your wound has increased redness and your wound has increased drainage Follow-up/Referrals: Chris Angulo MD [Physician] - 08/10/19 10:00 am Jax Tucker [Primary Care Provider] - Urology,Nurse [Physician] - 08/03/19 9:00 am Diet: Regular Addtl Attending Provider Instructions: Please take all medications as prescribed and keep all follow-ups as scheduled. Please call our office at [phone] with any questions, concerns or need to reschedule appointments for any reason. We are happy to assist you We have sent an antibiotic to your pharmacy of choice. Please begin antibiotic as prescribed the day BEFORE your scheduled voiding trial at [facility]. Please continue antibiotic every 12 hours through the day AFTER your voiding trial. Activity: We recommend having someone with you for the first few days after surgery to help care for you. For the first 2 weeks after surgery, we would like you to get up and walk around your house. However, we recommend limit physical activity that would increase your heart rate. This will allow your body to rest and heal. Take naps if you feel tired. Don't lift anything heavier than 10 pounds, mow the law or ride a bicycle until your follow-up appointment. Please avoid long car rides. Home Care: Unless directed otherwise, drink 6 to 8 glasses of water a day (enough to keep your urine light colored). This will also help keep a healthy flow of urine. We recommend using a stool softener for the first two weeks to avoid constipation. Goode Catheter or Suprapubic Catheter care: Keep the catheter well secured with either a leg back or leg strap with large bag. Empty your bag when it's about half full. You may notice some blood in the bag. This is normal after surgery and while the catheter is in place. Use mild soap (such as Dove or Dial) and water to wash the catheter and the head of your penis daily, or more frequently if needed. Return to your normal diet, we encourage good protein intake to promote healing. You may shower as normal. Please avoid tub baths or soaking until catheter removed and incisions well healed. Wearing sweat pants while you have the catheter is recommended, they will be more comfortable. Follow-up Your follow up appointments for having your catheter removed, and follow up with your physician should already be scheduled. If you have any questions regarding this, please contact our office. Your final pathology report will be discussed at your physician follow-up ap pointment. Call [facility] at [phone] right away if you have any of the following: Chest pain or trouble breathing (call 351 or go to the hospital) Fever of 101F or higher, uncontrolled vomiting Heavy bleeding, clots, or bright red blood from the catheter Catheter that falls out or stops draining Foul-smelling discharge from your catheter Redness, swelling, warmth, or increased pain at your incision site Drainage, pus, or bleeding from your incision Pending Studies at Discharge: Yes Studies:: Pathology Stand-Alone Forms: My [employer], Smoking Cessation Medications and DC Order Prescriptions: New ciprofloxacin HCl 500 mg tablet 500 mg PO BID 3 Days Qty: 6 RF: 0 oxycodone-acetaminophen [Percocet] 5-325 mg tablet 1 tab PO TID PRN (Reason: pain) Qty: 14 RF: 0 docusate sodium [Colace] 100 mg capsule 100 mg PO BID Qty: 60 RF: 0 Continued tramadol 50 mg tablet 50 mg PO Q6 PRN (Reason: pain) Qty: 30 RF: 0 gabapentin 300 mg capsule 300 mg PO BID RF: 0 Discontinued acetaminophen [Tylenol] 325 mg tablet 325 mg PO Q6H PRN (Reason: Pain) RF: 0 tamsulosin [Flomax] 0.4 mg capsule 0.4 mg PO QPM RF: 0 Discharge Orders: Discharge Order (Routine); Ordered 07/30/19 Ordered By: Chris Angulo Admission Data Admit Date/Time: 07/28/19 12:08 Attending Provider: Chris Angulo Admit Provider: Chris Angulo Primary Care Provider: Jax Tucker Coding Level of Care Code D/C Day Management <30 mins Diagnoses Prostate CA C61
--- NOTE | 2019-07-30 09:31 | Urology Progress Note ---
Date of Service July 30, 2019 Assessment & Plan (1) Prostate CA: Status post robotic prostatectomy Recovery on pace Plan for discharge home this morning with Garcia catheter in place Subjective Doing very well after his prostatectomy He has been ambulatory He has been tolerating a diet He is moving his bowels He is anxious to go home Physical Exam Physical Exam: Incisions appropriate Results & Data Vital Signs (Past 12 Hours) Vital Signs Temp Pulse Resp BP Pulse Ox 07/30/19 07:13 36.6 C 56 L 18 133/80 99 07/29/19 23:24 36.9 C 67 19 127/78 93 PG Care Time/CCT Total # of Minutes Spent Total Time Spent with Patient: Total time spent is greater than 50% in coordination of care (as documented) at patient's floor/unit and/or counseling patient: Coding Level of Care Code None Diagnoses Prostate CA C61
== END 2019-07-30 11:02 | disposition home or self-care (01) ==
LOC: ASU 05:01 → INTOOBSV 12:08 → 3N 12:08

== ENCOUNTER 2022-06-12 10:23 | Inpatient (IN) ==
--- NOTE | 2022-06-08 08:29 | Anesthesiology Consultation ---
Date of Service June 08, 2022 Assessment & Plan (1) Encounter for pre-operative examination: - COVID screening: Per assessment on 06/08: No known COVID-19 positive contacts or current COVID-19 related symptoms. Travel screen negative. Patient vaccinated. At surgeon discretion if preop Covid testing being done. - Hx elevated glucose: Glucose elevated at 210 on preop labs 06/07/22. Surgeon's office made aware. Per chart review, hx of fluctuating glucoses in the past. Per patient, PCP had noted the elevated glucoses in the past were all in setting of recent steroid use for back pain (per patient, has had multiple recent steroid injections/use through Dr. Rick for back pain). PCP had attempted insulin/antiglycemics but resulted in significantly low glucoses/complications so patient just being diet managed at this time. Will recheck glucose AM DOS. Chart Review Chart Review: Acceptable Risk for Surgery (pending evaluation AM DOS) and Patient NOT seen in Pre Admission Testing History Surgery Operation Date: 06/12/22 13:45 Proposed Procedures p L4-S1 Revision Decompression and Fusion, Spinal Cord Monitoring - Liborio Aragon DO Height/Weight Height: 5 ft 10 in Weight: 112.945 kg Allergies Allergy/AdvReac Type Severity Reaction Status Date / Time No Known Allergies Allergy Verified 06/08/22 07:34 Medications Home Medications Medication Instructions Recorded Confirmed Last Taken meloxicam 7.5 mg tablet 7.5 mg PO BID #60 tabs 03/19/22 06/08/22 03/30/22 acetaminophen 500 mg tablet 500 mg PO TID PRN Pain 06/08/22 06/08/22 Unknown cyclobenzaprine 10 mg tablet 10 mg PO BID PRN Pain 06/08/22 06/08/22 Unknown ibuprofen 200 mg tablet 400 mg PO Q6H PRN Pain 06/08/22 06/08/22 Unknown Past Medical History Medical History Chronic back pain Elevated glucose Per patient, PCP had noted the elevated glucoses in the past were all in setting of recent steroid use for back pain (per patient, has had multiple recent steroid injections/use through Dr. Rick for back pain). PCP had attempted insulin/antiglycemics but resulted in significantly low glucoses/complications so patient just being diet managed at this time Obesity Prostate CA pathology 1/27/20 > surgical intervention Past Family History Family History Father , age 64 of gangrene from diabetes Diabetes Mother , age 67 Lung cancer long time smoker Brother , age 64 Diabetes Sister , age 59 Lung cancer heavy smoker Son No problems noted. Son No problems noted. Other Heart disease No family history of adverse response to anesthesia Past Surgical History Surgical History History of appendectomy History of back surgery 1988 fusion lumbar History of prostatectomy History of surgery on left wrist multiple Nausea and vomiting after administration of anesthetic agent S/P epidural steroid injection caudal epidural steroid injection x2 03/2022 Dr Rick Social History Smoking Status: Former smoker tobacco type: smokeless tobacco Smoking cigarettes per day: 1 ppd previously, now only occ cig Do You Dip or Chew Tobacco: Yes (1 can/2 days) Smoking End Date: Quit 2 years ago Hx Alcohol Use: Yes Alcohol type: beer alcohol intake frequency: a few times a week Hx Substance Use: No substance use type: does not use Lab Results Anesthesia Preop Results Results Anesthesia Widget: WBC 9.78 K/ul (4.8-10.8) 06/07/22 Hgb 16.1 g/dl (14.0-18.0) 06/07/22 Hct 44.3 % (42.0-52.0) 06/07/22 Plt 155 K/uL (130-400) 06/07/22 Na 135 mmol/L (136-145) L 06/07/22 K 4.1 mmol/L (3.5-5.1) 06/07/22 Cl 108 mmol/L (98-107) H 06/07/22 CO2 20 mmol/L (21-32) L 06/07/22 BUN 15 mg/dl (6-23) 06/07/22 Creat 0.68 mg/dl (0.6-1.4) 06/07/22 Glucose Level 210 mg/dl (70-99(Fasting)) H 06/07/22 PT 10.3 Seconds (9.0-12.0) 06/07/22 PTT 27.3 Seconds (21.0-31.0) 06/07/22 INR 0.9 (0.9-1.1) 06/07/22 Urine Color Yellow 06/07/22 Urine Appearance Clear (Clear) 06/07/22 Urine pH 5.5 (4.5-7.5) 06/07/22 Urine Specific [place] 1.036 (1.000-1.030) H 06/07/22 Urine Protein Negative (Negative) 06/07/22 Urine Glucose (UA) 3+ (Negative) H 06/07/22 Urine Ketones Trace (Negative) H 06/07/22 Urine Blood Negative (Negative) 06/07/22 Urine Nitrite Negative (Negative) 06/07/22 Urine Bilirubin Negative (Negative) 06/07/22 Urine Urobilinogen Negative (Negative) 06/07/22 Urine Leukocyte Esterase Negative (Negative) 06/07/22 Blood Type O Positive 06/07/22 Antibody Screen NEGATIVE 06/07/22 Testing Electrocardiogram Date: 06/07/22 NSR at 78bpm. unconfirmed report. Chest X-Ray Date: 06/07/22 FINDINGS: PA and lateral chest radiographs are compared to study dated 07/22/2019. The cardiomediastinal silhouette is unremarkable. The lungs and pleural spaces are clear. There is no pneumothorax. The bony thorax appears intact. IMPRESSION: No active disease in the chest.
[~2022-06-12 10:23] MED LIST: ACETAMINOPHEN 500 MG TAB PO SCH; CeleBREX 200 MG CAP PO SCH; GABAPENTIN 600 MG DOSE PO SCH; LR 15ML/HR IV SCH; ceFAZolin 2000MG 2,000 MG/15 ML SYR IV SCH
[2022-06-12] MEDS ORDERED: fentaNYL citrate PF 100 MCG/2 ML VIAL ONE ×3 (10:39→13:51)
[2022-06-12] MEDS ORDERED: MIDAZOLAM HCL 1 MG/ML 2ML VIAL ONE (10:39)
[2022-06-12] MEDS ORDERED: ONDANSETRON INJ 2 MG/ML 2 ML VIAL ONE (10:39)
[2022-06-12] MEDS ORDERED: DEXAMETHASONE SOD INJ 4 MG/ML VIAL ONE (10:39)
[2022-06-12] MEDS ORDERED: PROPOFOL IV EMULSION 10 MG/ML 20 ML VIAL IV ONE (10:39)
[2022-06-12] MEDS ORDERED: LIDOCAINE 2% MPF LOCAL 5 ML VIAL ONE (10:40)
[2022-06-12] MEDS ORDERED: SUGAMMADEX SODIUM 200 MG/2 ML VIAL IV ONE (10:40)
[2022-06-12] MEDS ORDERED: ROCURONIUM BROMIDE 10 MG/ML 5 ML VIAL IV ONE ×11 (10:40→13:35)
[2022-06-12] MEDS ORDERED: INSULIN ASPART PER UNIT CHARGE SC STA (11:09)
[2022-06-12] MEDS ORDERED: PROMETHAZINE HCL 6.25 MG in SODIUM CHLORIDE 0.9% 50 ML IV PRN (11:09)
[2022-06-12] MEDS ORDERED: ONDANSETRON INJ 2 MG/ML 2 ML VIAL IV PRN ×2 (11:09→16:58)
[2022-06-12] MEDS ORDERED: ATROPINE SULFATE 0.1 MG/ML 10ML SYR IV PRN (11:09)
[2022-06-12] MEDS ORDERED: ePHEDrine sulfate 50 MG/ML AMP IV PRN (11:09)
--- NOTE | 2022-06-12 11:24 | History & Physical Bridge Note ---
Date of Service June 12, 2022 History & Physical Bridge Note I have examined the patient, reviewed the History & Physical and in the interval since the performance of the History & Physical I have noted the following changes of clinical significance: no changes noted
--- NOTE | 2022-06-12 11:26 | History & Physical Report ---
Date of Service June 12, 2022 Assessment & Plan (1) Neurogenic claudication due to lumbar spinal stenosis: Plan: L4-S1 revision decompression and fusion History of Present Illness Chief Complaint: Back and leg pain Primary Care Provider: Jax Tucker This is a 56-year-old male who presents with chronic persistent worsening back and leg pain and failing course of nonoperative care he is here for surgical invention. Allergies Allergy/AdvReac Type Severity Reaction Status Date / Time No Known Allergies Allergy Verified 06/12/22 10:45 Home Medications Medication Instructions Recorded Confirmed Type meloxicam 7.5 mg tablet 7.5 mg PO BID #60 tabs 03/19/22 06/12/22 Rx acetaminophen 500 mg tablet 500 mg PO TID PRN Pain 06/08/22 06/12/22 History cyclobenzaprine 10 mg tablet 10 mg PO BID PRN Pain 06/08/22 06/12/22 History ibuprofen 200 mg tablet 400 mg PO Q6H PRN Pain 06/08/22 06/12/22 History Past Med/Surg History Medical History Chronic back pain Elevated glucose Per patient, PCP had noted the elevated glucoses in the past were all in setting of recent steroid use for back pain (per patient, has had multiple recent steroid injections/use through Dr. Rick for back pain). PCP had attempted insulin/antiglycemics but resulted in significantly low glucoses/complications so patient just being diet managed at this time Obesity Prostate CA pathology 03/16/19 > surgical intervention Surgical History History of appendectomy History of back surgery 1989 fusion lumbar History of prostatectomy History of surgery on left wrist multiple Nausea and vomiting after administration of anesthetic agent S/P epidural steroid injection caudal epidural steroid injection x2 03/2022 Dr Rick Family History Father , age 64 of gangrene from diabetes Diabetes Mother , age 67 Lung cancer long time smoker Brother , age 64 Diabetes Sister , age 59 Lung cancer heavy smoker Son No problems noted. Son No problems noted. Other Heart disease No family history of adverse response to anesthesia Social History Smoking Status: Former smoker Age Started Using Tobacco: 18; Age Quit Using Tobacco: 50; packs per day: 1; Cigarettes Per Day: 1 ppd previously, now only occ cig; Smoking End Date: Quit 2 years ago; Second Hand Exposure: Yes ( smokes); Do You Dip or Chew Tobacco: Yes (1 can/2 days); Tobacco Cessation Education Requested by Patient: No Hx Alcohol Use: Yes Alcohol type: beer Hx Substance Use: No Preferred Language: Mohawk Communication Ability: Effective Visual Impairment: No Limitations Hearing Ability: Normal Management Scientist Required: No Beliefs That Will Affect Care: None marital status: Current Living Situation: Family current occupational status: employed 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
[2022-06-12] MEDS ORDERED: ceFAZolin 330 MG/ML 1 GM VIAL ONE (11:32)
[2022-06-12] MEDS ORDERED: BUPIVACAINE/EPINEPHRINE 0.25% 1:200,000 30 ML VIAL ONE (11:32)
[2022-06-12] MEDS ORDERED: KETAMINE 50 MG/5 ML SYRINGE ONE (12:07)
[2022-06-12] MEDS ORDERED: FLOSEAL HEMOSTATIC MATRIX 10ML TOP ONE (12:36)
--- NOTE | 2022-06-12 14:24 | Operative Report ---
Post Operative Report Pre & Post Diagnosis Operation Date: 06/12/22 11:55 Pre-Op Diagnosis: Lumbar disc herniation L5-S1 with spondylolisthesis L5-S1 Morbid obesity Post-Op Diagnosis: Same I identified the patient and participated in the time-out.: Yes Procedure Operation Date: 06/12/22 11:55 Actual Procedures #1 revision decompression with medial facetectomy and foraminotomies L4-L5 L5- S1. #2 posterior spinal fusion L4-S1. #3 placement posterior instrumentation L4-S1. #4 interbody fusion L4-L5 L5-S1. #5 placement of Spira 15 x 26 mm cage at L4-L5 L5-S1. #6 placement locally harvested morselized autograft in the posterior gutters. #7 placement of I factor and V toss in the interbody space and posterior lateral gutters. Surgeon Liborio Aragon, DO Display Department Manager Viktoria Purcell Estimated Blood Loss 800 Findings See Below The patient is 5 foot 10 weighing over 117 kg with a BMI in excess of 37. This combined with a EBL of greater than 800 cc created significant technical difficulty and at least 50% increased to the operative time. Specimens None Indications This is a 56-year-old male who presents above-mentioned diagnosis after failing course of nonoperative care having steady decline in status and overall function he is here for the above-mentioned procedure. Description of Procedure Patient was met with identified informed consent obtained. Patient was then taken to the operative suite underwent patient placed in a prone position on the [place] table top [place] frame. All bony promises well-padded eyes inspected to ensure no external pressure placed upon the. This point lumbar spine was prepped and draped in a sterile fashion. Sharp dissection with assistance bradycardia formed down to and exposing the remaining lamina and transverse processes of L4-L5 and sacral ala bilaterally. Mcmanus cephalad fashion revision complete laminectomy L5 and L4 was performed including medial facetectomies and foraminotomies addressing severe lateral recess and foraminal stenosis as well as a foraminal extraforaminal disc herniation at L5-S1 on the right. After complete decompression pedicle screws were placed in L4-L5 and S1 levels on the right and L4 and S1 on the left. Proper sized nataly contoured and placed. By way of a transforaminal approach on the right complete discectomy of L5-S1 was performed endplates curetted to subcortical bleeding bone and a 15 x 26 mm Spira cage with I factor tapped in position. Then proceeded to L4-L5 and again by way of transforaminal approach on the right complete discectomy performed endplates curetted to subcortical bleeding bone and again a 15 x 26 mm Spira cage with I factor tapped in position. The rods then locked in final position bilaterally. The transverse processes of L4-5 and sacral ala burred to subcortically bone. I factor amount of the test and locally harvested mors elized autograft was placed in the posterior gutters. 15 round ELIZABETH drain inserted. The incision was then closed with 1 Vicryl the fascia 2-0 Vicryl subcutaneously and 4 Monocryl for final skin closure. Steri-Strips and a sterile dressing placed. Patient waken taken to PACU in stable condition. Please note spinal cord monitoring was utilized at the procedure no changes noted. Lastly Viktoria Purcell was present at the entire surgery and while the patient positioning complex portions of the surgery and final skin closure. I attest to the content of the Intraoperative Record and any orders documented therein. Any exceptions are noted below.
[2022-06-12] MEDS: fentaNYL citrate PF 100 MCG/2 ML VIAL IV PRN ×4 (15:05→15:20)
--- NOTE | 2022-06-12 15:12 | Fluoroscopy Report ---
FL lumbar spine 2-3V CLINICAL HISTORY: L4-S1 REVISION DECOMPRESSION AND FUSION COMPARISON STUDY: None. FLUOROSCOPY TIME: 40 seconds. Ka, r: 40.58 mGy FLUOROSCOPIC IMAGES: 2 FINDINGS: Fluoroscopy was provided during L4-L5 and L5-S1 discectomies with interbody spacer placemen t. There are bilateral pedicle screws at the L4 and S1 levels. There is a right L5 pedicle screw. Selena coto was aware of sponges within the operative field. IMPRESSION: Fluoroscopy provided during revision L4-S1 decompression and fusion. ACT 112: Negative or not required by law. Electronically signed by: Emigdio Adame M.D. 06/12/2022 3:11 PM
[2022-06-12] MEDS: HYDROmorphone INJ 2 MG/ML SYR/VIAL IV PRN ×4 (15:25→15:40)
--- NOTE | 2022-06-12 15:48 | Anesthesiology Progress Note ---
Date of Service June 12, 2022 Anesthesia Post Procedure Vital Signs Vital Signs: Temp Pulse Pulse Resp BP Pulse Ox O2 Del Method 06/12/22 15:45 36.9 C 79 13 132/69 97 Oxymask 06/12/22 15:35 36.9 C 74 13 120/71 98 Oxymask 06/12/22 15:25 36.9 C 77 16 125/72 98 Oxymask 06/12/22 15:15 72 15 113/74 97 Oxymask 06/12/22 15:05 73 13 104/73 98 Oxymask 06/12/22 14:55 76 15 124/69 98 Oxymask 06/12/22 14:45 73 15 120/70 99 Oxymask 06/12/22 14:35 36.6 C 73 14 122/81 98 Oxymask 06/12/22 10:49 36.5 C 74 18 135/88 96 Room Air O2 Flow Rate 06/12/22 15:45 3 06/12/22 15:35 3 06/12/22 15:25 4 06/12/22 15:15 4 06/12/22 15:05 4 06/12/22 14:55 5 06/12/22 14:45 6 06/12/22 14:35 7 06/12/22 10:49 Pain Intensity Lower Back: Pain Intensity: 8 Transfer of Care Handoff Completed per policy Notes Mental Status: alert / awake / arousable Patient Amnestic to Procedure: Yes Nausea / Vomiting: adequately controlled Pain: adequately controlled Airway Patency, RR, SpO2: stable & adequate BP & HR: stable & adequate Hydration State: stable & adequate Anesthetic Complications: no major complications apparent
[2022-06-12] MEDS ORDERED: PHARMACY GLYCEMIC MGMT CONSULT PRN (16:58)
[2022-06-12] MEDS ORDERED: diphenhydrAMINE Capsule 25 MG CAP PO PRN (16:58)
[2022-06-12] MEDS ORDERED: FAMOTIDINE 20 MG TAB PO PRN (16:58)
[2022-06-12] MEDS ORDERED: DO NOT ADMINISTER PNEUMOCOCCAL VACCINE PRN (16:58)
[2022-06-12] MEDS ORDERED: hydrOXYzine HCl 25 MG TAB PO PRN (16:58)
[2022-06-12] MEDS ORDERED: ONDANSETRON 4 MG OD TAB PO PRN (16:58)
[2022-06-12] MEDS ORDERED: ACETAMINOPHEN 500 MG TAB PO PRN (16:58)
[2022-06-12] MEDS ORDERED: HYDROmorphone INJ 1 MG/ML SYRINGE IV PRN (16:58)
[2022-06-12] MEDS ORDERED: LORazepam 0.5 MG TAB PO PRN (16:58)
[2022-06-12] MEDS ORDERED: SOD PHOSPHATE/SOD BIPHOSPHATE ENEMA 132 ML BTL PR PRN (16:58)
[2022-06-12] MEDS ORDERED: ALUMINUM/MAGNESIUM SUSP 30 ML UDC PO PRN (16:58)
[2022-06-12] MEDS ORDERED: LORazepam 2 MG/1 ML VIAL IV PRN (16:58)
[2022-06-12] MEDS ORDERED: traMADol HCL 50 MG TABLET PO PRN (16:58)
[2022-06-12] MEDS ORDERED: NALOXONE HCL 0.4 MG/1 ML VIAL/CARP IV PRN (16:58)
[2022-06-12] MEDS ORDERED: ACETAMINOPHEN 1,000 MG/100 ML VIAL IV PRN (16:58)
[2022-06-12] MEDS ORDERED: HYDROmorphone INJ 0.5 MG/0.5 ML SYR IV PRN (16:58)
[2022-06-12] MEDS ORDERED: METOCLOPRAMIDE HCL INJ 5 MG/ML 2 ML VIAL IV PRN (16:58)
[2022-06-12] MEDS ORDERED: MAGNESIUM HYDROXIDE SUSP 30 ML UDC PO PRN (16:58)
[2022-06-12] MEDS ORDERED: PROMETHAZINE HCL 12.5 MG in SODIUM CHLORIDE 0.9% 50 ML IV PRN (16:58)
[2022-06-12] MEDS ORDERED: bisacodyL 10 MG SUPP PR PRN (16:58)
[2022-06-12] MEDS ORDERED: DO NOT ADMINISTER FLU VACCINE PRN (16:58)
[2022-06-12] MEDS: SODIUM CHLORIDE 0.9% 1000ML 1,000 ML IV SCH (17:55)
[2022-06-12] MEDS: INSULIN ASPART PER UNIT CHARGE SC SCH ×2 (18:20→21:50)
[2022-06-12] MEDS ORDERED: LANTUS PER UNIT CHARGE SC ONE (18:45)
--- NOTE | 2022-06-12 19:13 | Hospitalist Consultation ---
Date of Consultation June 12, 2022 Assessment & Plan (1) S/P spinal surgery: This is a 56yo M with a PMH of DM II not on medications who is POD#0 s/p revision decompression with medial facetectomy and foraminotomies L4-L5 L5-S1 and posterior spinal fusion L4-S1 by Dr. Aragon. POD#0 s/p revision decompression with medial facetectomy and foraminotomies L4- L5 L5-S1 and posterior spinal fusion L4-S1 by Dr. Aragon Per ortho for pain control, wound care, anticoagulation and activities Monitor H&H (EBL 800ml, pre-op hgb 16.1) Continue incentive spirometry, PT/OT when appropriate (2) Diabetes mellitus, type II: A1c of 7 in Feb 2022 Not on any diabetic medications currently due to issues with subsequent hypoglycemia Understands he will be on insulin while admitted and receiving IV steroids. Most recent BSG >350 Glycemic pharmacy managing Discussed importance of follow up on DM II with PCP following admission, suggested starting metformin (3) Alcohol use: Endorses 2 beers most nights but does go days at a time without drinking. No s/sx of withdrawal, can add PRN ativan and AWSS if clinical picture changes PCP: Garrett Dispo: Per primary service Patient seen in collaboration with Dr. Spence. Please see addendum. I spent a total of 50 minutes coordinating, documenting, and providing care for this patient excluding time spent in the performance of separately billed services. Thank you for this consultation. We will follow the patient with you during their hospital stay. You can reach a member of the [facility] Hospitalist Team 10/09 via [employer]. Supervising Physician Co-Signing Physician Notes Pt is a 56 y/o M with hx of DMII (not on any meds) admitted for Revision of L4- S1 decompression and fusion and consulted for medical co-management PE: NAD, well developed Cardiac: normal S1/S2, no murmur Lungs: CTA, no wheezing or crackles Abd: obese abd, NT, soft MSK: able to move b/l toes and feet Psych: AAOX3, normal affect A/P: S/p L4-S1 decompression and fusion: -POD#0 -VSS and pt is recovering well -pain management per primary team -PT/OT -monitor CBC and BMP DMII: -per pt he does not take any meds at home -- trulucity caused hypoglycemia per pt -will do ISS for now -recommend follow up with PCP for potential initiation of low dose metformin Agree with A/P by Michelle Jones PA-C History of Present Illness Reason for Consultation: post op med mgmt Attending Physician: Liborio Aragon, DO History of Present Illness This is a 56yo M with a PMH of DM II not on medications who is POD#0 s/p revision decompression with medial facetectomy and foraminotomies L4-L5 L5-S1 and posterior spinal fusion L4-S1 by Dr. Aragon. Patient is comfortable postoperatively with minimal surgical site discomfort. Denies any pain in bilateral lower extremities. Has had issues with elevated blood sugar following previous surgeries and has been placed on insulin, but then has subsequent hypoglycemic episodes and stopped medication. States he has discussed this with PCP. Denies any known history of hypertension, hyperlipidemia or stroke. Did quit smoking cigarettes 1.5 years ago. Drinks beer most evenings and endorses 2-3. Denies any issues with withdrawal in the past. No fever, chills, lightheadedness, chest pain, shortness of breath, nausea, vomiting, abdominal pain, dysuria, or diarrhea. Allergies Allergy/AdvReac Type Severity Reaction Status Date / Time No Known Allergies Allergy Verified 06/12/22 10:45 Home Medications Medication Instructions Recorded Confirmed Type meloxicam 7.5 mg tablet 7.5 mg PO BID #60 tabs 03/19/22 06/12/22 Rx acetaminophen 500 mg tablet 500 mg PO TID PRN Pain 06/08/22 06/12/22 History cyclobenzaprine 10 mg tablet 10 mg PO BID PRN Pain 06/08/22 06/12/22 History ibuprofen 200 mg tablet 400 mg PO Q6H PRN Pain 06/08/22 06/12/22 History Patient History Medical History (Updated 06/12/22 @ 19:54 by Michelle Jones PA-C) Chronic back pain Diabetes mellitus, type II Elevated glucose Per patient, PCP had noted the elevated glucoses in the past were all in setting of recent steroid use for back pain (per patient, has had multiple recent steroid injections/use through Dr. Rick for back pain). PCP had atte mpted insulin/antiglycemics but resulted in significantly low glucoses/complications so patient just being diet managed at this time Obesity Prostate CA pathology 03/16/19 > surgical intervention Surgical History History of appendectomy History of back surgery 1988 fusion lumbar History of prostatectomy History of surgery on left wrist multiple Nausea and vomiting after administration of anesthetic agent S/P epidural steroid injection caudal epidural steroid injection x2 03/2022 Dr Rick Family History Father , age 64 of gangrene from diabetes Diabetes Mother , age 67 Lung cancer long time smoker Brother , age 64 Diabetes Sister , age 59 Lung cancer heavy smoker Son No problems noted. Son No problems noted. Other Heart disease No family history of adverse response to anesthesia Social History Smoking Status: Former smoker Age Started Using Tobacco: 18; Age Quit Using Tobacco: 50; packs per day: 1; Cigarettes Per Day: 1 ppd previously, now only occ cig; Smoking End Date: Quit 2 years ago; Second Hand Exposure: Yes ( smokes); Do You Dip or Chew Tobacco: Yes (1 can/2 days); Tobacco Cessation Education Requested by Patient: No Hx Alcohol Use: Yes Alcohol type: beer Alcohol Intake Frequency: 4 or More x per/Week Alcohol Intake Frequency Comment: 2 beers most nights Hx Substance Use: No Preferred Language: Palestinian Communication Ability: Effective Visual Impairment: No Limitations Hearing Ability: Normal Selling Manager Required: No Beliefs That Will Affect Care: None marital status: Current Living Situation: Family current occupational status: employed 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 Physical Exam Physical Exam: Please see Dr. Spence's addendum for physical exam. Results & Data Results & Data Vital Signs (Past 12 Hours) Vital Signs Temp Pulse Pulse Resp BP BP Pulse Ox 06/12/22 18:57 36.8 C 99 H 18 119/69 95 06/12/22 17:54 36.2 C L 98 H 18 140/71 96 06/12/22 17:23 36.3 C L 91 H 18 141/88 H 97 06/12/22 16:59 36.6 C 90 18 120/79 95 06/12/22 16:45 36.9 C 90 14 141/80 H 97 06/12/22 16:30 36.9 C 85 9 L 138/75 97 06/12/22 16:15 36.9 C 88 10 L 145/73 H 96 06/12/22 16:00 36.9 C 80 10 L 129/76 97 06/12/22 15:55 36.9 C 77 14 125/72 96 06/12/22 15:45 36.9 C 79 13 132/69 97 06/12/22 15:35 36.9 C 74 13 120/71 98 06/12/22 15:25 36.9 C 77 16 125/72 98 06/12/22 15:15 72 15 113/74 97 06/12/22 15:05 73 13 104/73 98 06/12/22 14:55 76 15 124/69 98 06/12/22 14:45 73 15 120/70 99 06/12/22 14:35 36.6 C 73 14 122/81 98 06/12/22 10:49 36.5 C 74 18 135/88 96 O2 Del Method O2 Flow Rate 06/12/22 18:57 Room Air 06/12/22 17:54 Room Air 06/12/22 17:23 Room Air 06/12/22 16:59 Room Air 06/12/22 16:45 Nasal Cannula 3 06/12/22 16:30 Nasal Cannula 3 06/12/22 16:15 Nasal Cannula 3 06/12/22 16:00 Nasal Cannula 3 06/12/22 15:55 Nasal Cannula 3 06/12/22 15:45 Oxymask 3 06/12/22 15:35 Oxymask 3 06/12/22 15:25 Oxymask 4 06/12/22 15:15 Oxymask 4 06/12/22 15:05 Oxymask 4 06/12/22 14:55 Oxymask 5 06/12/22 14:45 Oxymask 6 04/25/23 14:35 Oxymask 7 06/12/22 10:49 Room Air
[2022-06-12] MEDS: ceFAZolin 2000MG 2,000 MG/15 ML SYR IV SCH (19:19)
[2022-06-12] MEDS: oxyCODONE HCL IR 5 MG TAB (IMMEDIATE RELEASE) PO PRN (19:25)
[2022-06-12] MEDS: DOCUSATE SODIUM/SENNA 50/8.6MG TAB PO SCH (21:56)
[2022-06-13] MEDS: SODIUM CHLORIDE 0.9% 1000ML 1,000 ML IV SCH (00:07)
[2022-06-13] MEDS: INSULIN ASPART PER UNIT CHARGE SC SCH ×6 (00:07→20:45)
[2022-06-13] MEDS: oxyCODONE HCL IR 5 MG TAB (IMMEDIATE RELEASE) PO PRN ×4 (00:09→20:45)
[2022-06-13] MEDS: ceFAZolin 2000MG 2,000 MG/15 ML SYR IV SCH (04:26)
[2022-06-13] MEDS: POLYETHYLENE (MIRALAX) 17 GM PACK PO SCH ×3 (05:38→17:37)
--- NOTE | 2022-06-13 07:29 | Pharmacy Report ---
Pharmacy Glycemic Short Note 2 - Date of Service June 13, 2022 - Glycemic Short BSG Results (Last 24 hours): 06/12/22 06/12/22 06/12/22 10:50 12:00 14:39 POC Glucose 286 H 244 H 250 H 06/12/22 06/12/22 06/12/22 17:33 20:56 20:57 POC Glucose 337 H* 502 H* 374 H* 06/12/22 06/13/22 06/13/22 20:59 00:00 04:21 POC Glucose 341 H* 270 H 164 H OUTPATIENT ANTIDIABETIC REGIMEN: * N/A HbA1C: __ ASSESSMENT: * Patient is a 56 year old male with DM2 not on any anti hyperglycemic medications at home. He is POD #1 spinal surgery. Pharmacy consulted to assist with glycemic management while inpatient. * Received 8mg IV dex pre-op and dexamethasone 6mg IV daily ongoing post-op. Tolerating diet. * BSGs [phone]/dL the last 24h. Patient received 20 units of basal and 39 units of bolus insulin yesterday. * Fasting BSG remains elevated today. Will titrate Lantus to 15 units BID (mild- moderate stress). Novolog ACHS severe stress scale. PLAN FOR INPATIENT GLYCEMIC CONTROL: * Hold outpatient oral diabetes medications * Basal insulin * Lantus 15 units SQ BID * Bolus insulin * NovoLog per scale ACHS or Q6hrs while NPO * Goal Range: Low 110 mg/dL - High 140 mg/dL * Correction Factor: 12 mg/dL/unit * Nutritional / Prandial insulin per carb ratio of 1 unit per 5 grams CHO consumed
[2022-06-13 07:44] LABS: Basophils # (auto) 0.02 K/uL (0-0.2); Basophils % (auto) 0.1 %; Eosinophils # (auto) 0.01 K/uL (0-0.50); Eosinophils % (auto) 0.1 %; Hematocrit (blood only) 34.7 % (42.0-52.0); Hemoglobin 12.4 g/dl (14.0-18.0); Immature Granulocytes # (auto) 0.08 K/uL (0.01-0.20); Immature Granulocytes % (auto) 0.6 %; Lymphocytes # (auto) 1.48 K/uL (1.2-3.4); Lymphocytes % (auto) 11.1 %; Mean Corpuscular Hemoglobin 30.4 pg (25.0-34.0); Mean Corpuscular Hgb Conc 35.7 g/dL (32.0-36.0); Mean Platelet Volume 9.5 fL (9.4-12.4); Monocytes # (auto) 0.97 K/uL (0.11-0.59); Monocytes % (auto) 7.3 %; Neutrophils # (auto) 10.79 K/uL (1.40-6.50); Neutrophils % (auto) 80.8 %; Platelet Count 186 K/uL (130-400); RDW Coefficient of Variation 12.6 % (11.5-14.5); RDW Standard Deviation 38.5 fL (36.4-46.3); Red Blood Count 4.08 M/uL (4.70-6.10); White Blood Count 13.35 K/ul (4.8-10.8)
[2022-06-13] MEDS: LANTUS PER UNIT CHARGE SC SCH ×2 (08:36→20:46)
[2022-06-13] MEDS: dexAMETHasone 6 MG in SYRINGE 0 ML IV SCH (08:37)
[2022-06-13 09:08] LABS: BUN Creatinine Ratio 17.1 (10-20); Calcium 8.4 mg/dl (8.6-10.3); Creatinine Clr Calc Pharmacy 139.4 ml/min; Est GFR (African American) 118.2 ml/min; Potassium 4.3 mmol/L (3.5-5.1)
[2022-06-13 09:21] LABS: Estimated Average Glucose 214 mg/dl; Hemoglobin A1C 9.1 % (4.5-5.6)
--- NOTE | 2022-06-13 12:17 | Hospitalist Progress Note ---
Date of Service June 13, 2022 Assessment & Plan (1) S/P spinal surgery: Plan: This is a 56yo M with a PMH of DM II not on medications who is POD#1 s/p revision decompression with medial facetectomy and foraminotomies L4-L5 L5-S1 and posterior spinal fusion L4-S1 by Dr. Aragon. POD#1 s/p revision decompression with medial facetectomy and foraminotomies L4- L5 L5-S1 and posterior spinal fusion L4-S1 by Dr. Aragon Per ortho for pain control, wound care, anticoagulation and activities Monitor H&H (EBL 800ml, pre-op hgb 16.1) Continue incentive spirometry, PT/OT when appropriate Anemia of acute blood loss 2/2 surgical blood loss and dilution current hgb 12.4 monitor h/h, ELIZABETH drain output CBC in a.m. (2) Diabetes mellitus, type II: Plan: A1c of 7 in Feb 2022 Not on any diabetic medications currently due to issues with subsequent hypoglycemia Understands he will be on insulin while admitted and receiving IV steroids. Glycemic pharmacy managing, bsg 254 A1C today was 9.1 will consult early childhood aide classroom - vivienne Pradhan pt agreeable to starting metformin 500mg bid upon discharge and follow up with PCP (3) Alcohol use: Plan: Endorses 2 beers most nights but does go days at a time without drinking. No s/sx of withdrawal, can add PRN ativan and AWSS if clinical picture changes PCP: Tg Guerrero PA-C, wishes to switch to [facility] PCP, he has a name in his wallet which is with his ; encouraged him to let me know who he specficially requests to see and we can arrange Dispo: Per primary service Patient seen in collaboration with Dr. Khoury. I spent a total of 45 minutes coordinating, documenting, and providing care for this patient excluding time spent in the performance of separately billed services. Thank you for this consultation. We will follow the patient with you during their hospital stay. You can reach a member of the [facility] Hospitalist Team 10/09 via FAMOCO. Admission and Anticipated Discharge Date Admission Date: June 12, 2022 Supervising Physician Co-Signing Physician Notes Pt seen and examined by me , care coordinated with Iqra Schwarz PA-C, pls refer to her note above for further detail. Patient is currently sitting up in bed, in no acute distress. Says that he feels a little improved since the surgery. Denies any fevers chills chest pain shortness of breath. Denies any abdominal pain nausea vomiting. Heart sounds regular. Lung sounds clear to auscultation. Abdomen obese soft, nontender to palpation, with positive bowel sounds. Seen patient to stand up and ambulating in his room. Discussed in detail his elevated A1c. Reports that he has issues with elevated blood sugar levels when on steroids. Discussed with diabetic educator, plan to likely discharge on metformin and follow-up closely with PCP. Continue to closely monitor. MD Peng Subjective Patient was seen and examined in 303-1. Follow up lumbar surgery. Complains of continued low back pain with radicular sx to RLE. Denies f/c/s, chest pain, sob, n/v/d. States BSG running high because of steroids. Review of Systems Review of Systems: All systems reviewed & are unremarkable except as noted in HPI & below Physical Exam Physical Exam: Gen: WD/WN, NAD, A&O x3 HEENT: Normocephalic, atraumatic, conjunctivae moist, sclerae anicteric, mucous membranes moist. Lung: Clear to Auscultation bilaterally, no wheezes/rales/rhonchi Heart: Regular rate, regular rhythm, no murmurs, rubs, or gallops Abdomen: Soft, NT, ND +BS x 4 Extremities: No edema, ELIZABETH drain with serosanguineous drainage, lumbar dressing CDI Skin: Warm, no rash, negative turgor. Results & Data Results & Data Vital Signs (Past 12 Hours) Vital Signs Temp Pulse Pulse Resp BP Pulse Ox O2 Del Method 06/13/22 11:20 36.3 C L 87 16 150/84 H 95 Room Air 06/13/22 07:01 36.5 C 76 18 119/75 96 Room Air 06/13/22 02:18 36.5 C 85 16 128/83 96 Room Air Laboratory Results 06/13/22 06/13/22 06/13/22 Range/Units 12:02 08:12 06:41 WBC (4.8-10.8) K/ul RBC (4.70-6.10) M/uL Hgb (14.0-18.0) g/dl Hct (42.0-52.0) % MCV (80.0-100.0) fL MCH (25.0-34.0) pg MCHC (32.0-36.0) g/dL RDW Std Deviation (36.4-46.3) fL RDW Coeff of Tung (11.5-14.5) % Plt Count (130-400) K/uL MPV (9.4-12.4) fL Immature Gran % (Auto) % Neut % (Auto) % Lymph % (Auto) % Steele % (Auto) % Eos % (Auto) % Baso % (Auto) % Neut # (Auto) (1.40-6.50) K/uL Lymph # (Auto) (1.2-3.4) K/uL Steele # (Auto) (0.11-0.59) K/uL Eos # (Auto) (0-0.50) K/uL Baso # (Auto) (0-0.2) K/uL Immature Gran # (Auto) (0.01-0.20) K/uL Sodium 132 L (136-145) mmol/L Potassium 4.3 (3.5-5.1) mmol/L Chloride 100 (98-107) mmol/L Carbon Dioxide 25 (21-32) mmol/L Anion Gap 7 (3-11) BUN 13 (6-23) mg/dl Creatinine 0.76 (0.6-1.4) mg/dl Est Cr Clr Drug Dosing 139.4 ml/min Est GFR ( Amer) 118.2 ml/min Est GFR (Non-Af Amer) 102.0 ml/min BUN/Creatinine Ratio 17.1 (10-20) Glucose 234 H (70-99(Fasting)) mg/dl POC Glucose 254 H 241 H (70-99) mg/dl Estimat Average Glucose mg/dl Hemoglobin A1c (4.5-5.6) % Calcium 8.4 L (8.6-10.3) mg/dl 06/13/22 06/13/22 06/13/22 Range/Units 06:41 06:41 04:21 WBC 13.35 H (4.8-10.8) K/ul RBC 4.08 L (4.70-6.10) M/uL Hgb 12.4 L (14.0-18.0) g/dl Hct 34.7 L (42.0-52.0) % MCV 85.0 (80.0-100.0) fL MCH 30.4 (25.0-34.0) pg MCHC 35.7 (32.0-36.0) g/dL RDW Std Deviation 38.5 (36.4-46.3) fL RDW Coeff of Tung 12.6 (11.5-14.5) % Plt Count 186 (130-400) K/uL MPV 9.5 (9.4-12.4) fL Immature Gran % (Auto) 0.6 % Neut % (Auto) 80.8 % Lymph % (Auto) 11.1 % Steele % (Auto) 7.3 % Eos % (Auto) 0.1 % Baso % (Auto) 0.1 % Neut # (Auto) 10.79 H (1.40-6.50) K/uL Lymph # (Auto) 1.48 (1.2-3.4) K/uL Steele # (Auto) 0.97 H (0.11-0.59) K/uL Eos # (Auto) 0.01 (0-0.50) K/uL Baso # (Auto) 0.02 (0-0.2) K/uL Immature Gran # (Auto) 0.08 (0.01-0.20) K/uL Sodium (136-145) mmol/L Potassium (3.5-5.1) mmol/L Chloride (98-107) mmol/L Carbon Dioxide (21-32) mmol/L Anion Gap (3-11) BUN (6-23) mg/dl Creatinine (0.6-1.4) mg/dl Est Cr Clr Drug Dosing ml/min Est GFR ( Amer) ml/min Est GFR (Non-Af Amer) ml/min BUN/Creatinine Ratio (10-20) Glucose (70-99(Fasting)) mg/dl POC Glucose 164 H (70-99) mg/dl Estimat Average Glucose 214 mg/dl Hemoglobin A1c 9.1 H (4.5-5.6) % Calcium (8.6-10.3) mg/dl 06/13/22 06/12/22 06/12/22 Range/Units 00:00 20:59 20:57 WBC (4.8-10.8) K/ul RBC (4.70-6.10) M/uL Hgb (14.0-18.0) g/dl Hct (42.0-52.0) % MCV (80.0-100.0) fL MCH (25.0-34.0) pg MCHC (32.0-36.0) g/dL RDW Std Deviation (36.4-46.3) fL RDW Coeff of Tung (11.5-14.5) % Plt Count (130-400) K/uL MPV (9.4-12.4) fL Immature Gran % (Auto) % Neut % (Auto) % Lymph % (Auto) % Steele % (Auto) % Eos % (Auto) % Baso % (Auto) % Neut # (Auto) (1.40-6.50) K/uL Lymph # (Auto) (1.2-3.4) K/uL Steele # (Auto) (0.11-0.59) K/uL Eos # (Auto) (0-0.50) K/uL Baso # (Auto) (0-0.2) K/uL Immature Gran # (Auto) (0.01-0.20) K/uL Sodium (136-145) mmol/L Potassium (3.5-5.1) mmol/L Chloride (98-107) mmol/L Carbon Dioxide (21-32) mmol/L Anion Gap (3-11) BUN (6-23) mg/dl Creatinine (0.6-1.4) mg/dl Est Cr Clr Drug Dosing ml/min Est GFR ( Amer) ml/min Est GFR (Non-Af Amer) ml/min BUN/Creatinine Ratio (10-20) Glucose (70-99(Fasting)) mg/dl POC Glucose 270 H 341 H* 374 H* (70-99) mg/dl Estimat Average Glucose mg/dl Hemoglobin A1c (4.5-5.6) % Calcium (8.6-10.3) mg/dl 06/12/22 06/12/22 06/12/22 Range/Units 20:56 17:33 14:39 WBC (4.8-10.8) K/ul RBC (4.70-6.10) M/uL Hgb (14.0-18.0) g/dl Hct (42.0-52.0) % MCV (80.0-100.0) fL MCH (25.0-34.0) pg MCHC (32.0-36.0) g/dL RDW Std Deviation (36.4-46.3) fL RDW Coeff of Tung (11.5-14.5) % Plt Count (130-400) K/uL MPV (9.4-12.4) fL Immature Gran % (Auto) % Neut % (Auto) % Lymph % (Auto) % Steele % (Auto) % Eos % (Auto) % Baso % (Auto) % Neut # (Auto) (1.40-6.50) K/uL Lymph # (Auto) (1.2-3.4) K/uL Steele # (Auto) (0.11-0.59) K/uL Eos # (Auto) (0-0.50) K/uL Baso # (Auto) (0-0.2) K/uL Immature Gran # (Auto) (0.01-0.20) K/uL Sodium (136-145) mmol/L Potassium (3.5-5.1) mmol/L Chloride (98-107) mmol/L Carbon Dioxide (21-32) mmol/L Anion Gap (3-11) BUN (6-23) mg/dl Creatinine (0.6-1.4) mg/dl Est Cr Clr Drug Dosing ml/min Est GFR ( Amer) ml/min Est GFR (Non-Af Amer) ml/min BUN/Creatinine Ratio (10-20) Glucose (70-99(Fasting)) mg/dl POC Glucose 502 H* 337 H* 250 H (70-99) mg/dl Estimat Average Glucose mg/dl Hemoglobin A1c (4.5-5.6) % Calcium (8.6-10.3) mg/dl Medications Administered Current Inpatient Medications Acetaminophen (Acetaminophen 500 Mg Tab) 1,000 mg PO Q8H PRN PRN Reason: MILD Pain Scale 1,2,3 & Pre PT Stop: 07/12/22 16:57 Al Hydrox/Mg Hydrox/Simethicone (Aluminum/Magnesium Susp 30 Ml Udc) 30 ml PO Q6H PRN PRN Reason: Dyspepsia Stop: 07/12/22 16:57 Bisacodyl (Bisacodyl 10 Mg Supp) 10 mg [place] DAILY PRN PRN Reason: Constipation Stop: 07/12/22 16:57 Diphenhydramine HCl (Diphenhydramine Capsule 25 Mg Cap) 25 mg PO Q6H PRN PRN Reason: Allergic Rhinitis/Insomnia Stop: 07/12/22 16:57 Famotidine (Famotidine 20 Mg Tab) 20 mg PO Q12H PRN PRN Reason: Dyspepsia Stop: 07/12/22 16:57 Hydromorphone HCl (Hydromorphone Inj 0.5 Mg/0.5 Ml Syr) 0.5 mg IV Q3H PRN PRN Reason: MODERATE Pain (Scale 4,5,6) & Pre PT Stop: 06/26/22 16:57 Hydromorphone HCl (Hydromorphone Inj 1 Mg/Ml Syringe) 1 mg IV Q3H PRN PRN Reason: SEVERE Pain (Scale 7,8,9,10) Stop: 06/26/22 16:57 Hydroxyzine HCl (Hydroxyzine Hcl 25 Mg Tab) 25 mg PO Q8H PRN PRN Reason: Anxiety Stop: 07/12/22 16:57 Acetaminophen (Ofirmev) 1,000 mg in 100 mls @ 400 mls/hr IV Q8H PRN PRN Reason: Pain Rating 1-3 & Pre PT Stop: 06/13/22 16:58 Dexamethasone 6 mg/ Syringe 1.5 mls @ 1 mls/min IV DAILY [facility]ACIE Stop: 06/15/22 09:02 Last Admin: 06/13/22 08:37 Dose: 1 mls/min Promethazine HCl 12.5 mg/ (Sodium Chloride) 50.5 mls @ 202 mls/hr IV Q6H PRN PRN Reason: Nausea &/or Vomiting Stop: 07/12/22 16:57 Influenza Virus Vaccine Quadrival (Do Not Administer Flu Vaccine) 1 each N/A PRN PRN PRN Reason: Notification Stop: 07/12/22 16:57 Insulin Aspart (Insulin Aspart Per Unit Charge) 0 units SC ACHS [facility]ACIE Stop: 07/12/22 17:29 Last Admin: 06/13/22 08:21 Dose: 15 units Insulin Glargine (Lantus Per Unit Charge) 15 units SC BID TRACIE Stop: 07/13/22 08:59 Last Admin: 06/13/22 08:36 Dose: 15 units Lorazepam (Lorazepam 0.5 Mg Tab) 0.5 mg PO Q8H PRN PRN Reason: Sedation/Anxiety Stop: 07/12/22 16:57 Lorazepam (Lorazepam 2 Mg/1 Ml Vial) 0.5 mg IV Q8H PRN PRN Reason: Sedation/Anxiety Stop: 07/12/22 16:57 Magnesium Hydroxide (Magnesium Hydroxide Susp 30 Ml Udc) 30 ml PO Q24H PRN PRN Reason: Constipation Stop: 07/12/22 16:57 Metoclopramide HCl (Metoclopramide Hcl Inj 5 Mg/Ml 2 Ml Vial) 10 mg IV Q6H PRN PRN Reason: Nausea &/or Vomiting Stop: 07/12/22 16:57 Miscellaneous Information (Pharmacy Glycemic Mgmt Consult) 1 each N/A UD PRN PRN Reason: Consult Stop: 07/12/22 16:57 Naloxone HCl (Naloxone Hcl 0.4 Mg/1 Ml Vial/Carp) 0.1 mg IV Q5M PRN PRN Reason: Oversedation/Resp depression Stop: 07/12/22 16:57 Ondansetron HCl (Ondansetron Inj 2 Mg/Ml 2 Ml Vial) 4 mg IV Q6H PRN PRN Reason: Nausea &/or Vomiting Stop: 07/12/22 16:57 Ondansetron HCl (Ondansetron 4 Mg Od Tab) 4 mg PO Q6H PRN PRN Reason: Nausea Stop: 07/12/22 16:57 Oxycodone HCl (Oxycodone Hcl Ir 5 Mg Tab (Immediate Release)) 5 - 10 mg PO Q4H PRN PRN Reason: Pain & Pre PT Stop: 06/26/22 16:57 Last Admin: 06/13/22 08:40 Dose: 10 mg Pneumococcal Polyvalent Vaccine (Do Not Administer Pneumococcal Vaccine) 1 each N/A PRN PRN PRN Reason: Notification Stop: 07/12/22 16:57 Polyethylene Glycol (Polyethylene (Miralax) 17 Gm Pack) 17 gm PO Q6 [facility] Stop: 07/13/22 05:59 Last Admin: 06/13/22 05:38 Dose: 17 gm Senna/Docusate Sodium (Docusate Sodium/Senna 50/8.6mg Tab) 2 tab PO HS TRACIE Stop: 07/12/22 20:59 Last Admin: 06/12/22 21:56 Dose: 2 tab Sodium Biphosphate/Sodium Phosphate (Sod Phosphate/Sod Biphosphate Enema 132 Ml Btl) 132 ml [place] ONE PRN PRN Reason: Constipation Stop: 07/12/22 16:57 Tramadol HCl (Tramadol Hcl 50 Mg Tablet) 50 - 100 mg PO Q4H PRN PRN Reason: Moderate-Severe pain & Pre PT Stop: 07/12/22 16:57
--- NOTE | 2022-06-13 13:02 | Orthopedic Progress Note ---
Date of Service June 13, 2022 Assessment & Plan (1) Neurogenic claudication due to lumbar spinal stenosis: Plan: This time we will continue physical therapy monitor his ELIZABETH operatively discharge home next few days. Admission and Anticipated Discharge Date Admission Date: June 12, 2022 Subjective Back pain controlled leg pain improved Physical Exam Physical Exam: Patient is ambulating halls. Is good strength testing. Appears comfortable. Results & Data Vital Signs (Past 12 Hours) Vital Signs Temp Pulse Pulse Resp BP Pulse Ox O2 Del Method 06/13/22 11:20 36.3 C L 87 16 150/84 H 95 Room Air 06/13/22 07:01 36.5 C 76 18 119/75 96 Room Air 06/13/22 02:18 36.5 C 85 16 128/83 96 Room Air
[2022-06-13] MEDS: DOCUSATE SODIUM/SENNA 50/8.6MG TAB PO SCH (20:47)
[2022-06-14] MEDS: POLYETHYLENE (MIRALAX) 17 GM PACK PO SCH ×5 (00:20→23:34)
[2022-06-14] MEDS: oxyCODONE HCL IR 5 MG TAB (IMMEDIATE RELEASE) PO PRN ×3 (00:20→23:34)
[2022-06-14 07:34] LABS: Hematocrit (blood only) 33.1 % (42.0-52.0); Hemoglobin 11.8 g/dl (14.0-18.0); Mean Corpuscular Hemoglobin 30.3 pg (25.0-34.0); Mean Corpuscular Hgb Conc 35.6 g/dL (32.0-36.0); Mean Corpuscular Volume 85.1 fL (80.0-100.0); Mean Platelet Volume 9.4 fL (9.4-12.4); Platelet Count 167 K/uL (130-400); RDW Coefficient of Variation 12.6 % (11.5-14.5); RDW Standard Deviation 38.5 fL (36.4-46.3); Red Blood Count 3.89 M/uL (4.70-6.10); White Blood Count 12.28 K/ul (4.8-10.8)
[2022-06-14 07:54] LABS: BUN Creatinine Ratio 20.9 (10-20); Calcium 8.7 mg/dl (8.6-10.3); Creatinine Clr Calc Pharmacy 158.2 ml/min; Est GFR (African American) 124.5 ml/min; Est GFR (Non-African American) 107.4 ml/min
[2022-06-14] MEDS: INSULIN ASPART PER UNIT CHARGE SC SCH ×4 (08:14→20:59)
[2022-06-14] MEDS: dexAMETHasone 6 MG in SYRINGE 0 ML IV SCH (08:14)
--- NOTE | 2022-06-14 08:14 | Hospitalist Progress Note ---
Date of Service June 14, 2022 Assessment & Plan (1) S/P spinal surgery: Plan: This is a 56yo M with a PMH of DM II not on medications who is POD#1 s/p revision decompression with medial facetectomy and foraminotomies L4-L5 L5-S1 and posterior spinal fusion L4-S1 by Dr. Aragon. POD#2 s/p revision decompression with medial facetectomy and foraminotomies L4- L5 L5-S1 and posterior spinal fusion L4-S1 by Dr. Aragon Per ortho for pain control, wound care, anticoagulation and activities Monitor H&H (pre-op hgb 16.1) Continue incentive spirometry, PT/OT when appropriate Anemia of acute blood loss 2/2 surgical blood loss and dilution current hgb 11.8 ( relat. stable from yesterday 12.4) monitor h/h, ELIZBAETH drain output CBC in a.m. (2) Diabetes mellitus, type II: Plan: A1c of 7 in Feb 2022 Not on any diabetic medications currently due to issues with subsequent hypoglycemia Understands he will be on insulin while admitted and receiving IV steroids. Glycemic pharmacy managing, bsg 254 Current A1C 9.1 % Consulted certified adaptive physical educator - plan to start metformin 500mg bid upon discharge and follow up with PCP (3) Alcohol use: Plan: Endorses 2 beers most nights but does go days at a time without drinking. No s/sx of withdrawal, can add PRN ativan and AWSS if clinical picture changes PCP: Tg Guerrero PA-C, wishes to switch to [facility] PCP, Dr. Sidhu Dispo: Per primary service Thank you for this consultation. We will follow the patient with you during their hospital stay. You can reach a member of the [facility] Hospitalist Team 10/09 via [employer]indo. Admission and Anticipated Discharge Date Admission Date: June 12, 2022 Subjective Patient seen in med consult s/p spinal surgery Laying in bed in NAD Reports low back pain with radicular sx to RLE. Denies f/c/s, chest pain, sob, n/v/d. States BSG running high because of steroids. Discussed w/ agricultural extension educator Review of Systems Review of Systems: All systems reviewed & are unremarkable except as noted in Subjective Physical Exam Physical Exam: Gen: WD/WN, NAD, A&O x3 HEENT: Normocephalic, atraumatic, conjunctivae moist, mucous membranes moist. Lung: Clear to Auscultation bilaterally, no wheezes/rales/rhonchi Heart: Regular rate, regular rhythm, no murmurs, rubs, or gallops Abdomen: Soft, NT, ND +BS x 4 Extremities: No edema, ELIZABETH drain with serosanguineous drainage, lumbar dressing CDI Skin: Warm, no rash Results & Data Results & Data Vital Signs (Past 12 Hours) Vital Signs Temp Pulse Resp BP Pulse Ox O2 Del Method 06/14/22 07:21 36.5 C 86 18 145/81 H 97 Room Air 06/13/22 20:30 36.5 C 84 18 142/77 H 97 Room Air Laboratory Results 06/14/22 06/14/22 06/14/22 Range/Units 06:39 06:39 01:32 WBC 12.28 H (4.8-10.8) K/ul RBC 3.89 L (4.70-6.10) M/uL Hgb 11.8 L (14.0-18.0) g/dl Hct 33.1 L (42.0-52.0) % MCV 85.1 (80.0-100.0) fL MCH 30.3 (25.0-34.0) pg MCHC 35.6 (32.0-36.0) g/dL RDW Std Deviation 38.5 (36.4-46.3) fL RDW Coeff of Tung 12.6 (11.5-14.5) % Plt Count 167 (130-400) K/uL MPV 9.4 (9.4-12.4) fL Sodium 135 L (136-145) mmol/L Potassium 4.0 (3.5-5.1) mmol/L Chloride 101 (98-107) mmol/L Carbon Dioxide 27 (21-32) mmol/L Anion Gap 7 (3-11) BUN 14 (6-23) mg/dl Creatinine 0.67 (0.6-1.4) mg/dl Est Cr Clr Drug Dosing 158.2 ml/min Est GFR ( Amer) 124.5 ml/min Est GFR (Non-Af Amer) 107.4 ml/min BUN/Creatinine Ratio 20.9 H (10-20) Glucose 205 H (70-99(Fasting)) mg/dl POC Glucose 144 H (70-99) mg/dl Estimat Average Glucose mg/dl Hemoglobin A1c (4.5-5.6) % Calcium 8.7 (8.6-10.3) mg/dl 06/13/22 06/13/22 06/13/22 Range/Units 20:29 17:03 12:02 WBC (4.8-10.8) K/ul RBC (4.70-6.10) M/uL Hgb (14.0-18.0) g/dl Hct (42.0-52.0) % MCV (80.0-100.0) fL MCH (25.0-34.0) pg MCHC (32.0-36.0) g/dL RDW Std Deviation (36.4-46.3) fL RDW Coeff of Tung (11.5-14.5) % Plt Count (130-400) K/uL MPV (9.4-12.4) fL Sodium (136-145) mmol/L Potassium (3.5-5.1) mmol/L Chloride (98-107) mmol/L Carbon Dioxide (21-32) mmol/L Anion Gap (3-11) BUN (6-23) mg/dl Creatinine (0.6-1.4) mg/dl Est Cr Clr Drug Dosing ml/min Est GFR ( Amer) ml/min Est GFR (Non-Af Amer) ml/min BUN/Creatinine Ratio (10-20) Glucose (70-99(Fasting)) mg/dl POC Glucose 213 H 225 H 254 H (70-99) mg/dl Estimat Average Glucose mg/dl Hemoglobin A1c (4.5-5.6) % Calcium (8.6-10.3) mg/dl 06/13/22 06/13/22 06/13/22 Range/Units 08:12 06:41 06:41 WBC (4.8-10.8) K/ul RBC (4.70-6.10) M/uL Hgb (14.0-18.0) g/dl Hct (42.0-52.0) % MCV (80.0-100.0) fL MCH (25.0-34.0) pg MCHC (32.0-36.0) g/dL RDW Std Deviation (36.4-46.3) fL RDW Coeff of Tung (11.5-14.5) % Plt Count (130-400) K/uL MPV (9.4-12.4) fL Sodium 132 L (136-145) mmol/L Potassium 4.3 (3.5-5.1) mmol/L Chloride 100 (98-107) mmol/L Carbon Dioxide 25 (21-32) mmol/L Anion Gap 7 (3-11) BUN 13 (6-23) mg/dl Creatinine 0.76 (0.6-1.4) mg/dl Est Cr Clr Drug Dosing 139.4 ml/min Est GFR ( Amer) 118.2 ml/min Est GFR (Non-Af Amer) 102.0 ml/min BUN/Creatinine Ratio 17.1 (10-20) Glucose 234 H (70-99(Fasting)) mg/dl POC Glucose 241 H (70-99) mg/dl Estimat Average Glucose 214 mg/dl Hemoglobin A1c 9.1 H (4.5-5.6) % Calcium 8.4 L (8.6-10.3) mg/dl Medications Administered Current Inpatient Medications Acetaminophen (Acetaminophen 500 Mg Tab) 1,000 mg PO Q8H PRN PRN Reason: MILD Pain Scale 1,2,3 & Pre PT Stop: 07/12/22 16:57 Al Hydrox/Mg Hydrox/Simethicone (Aluminum/Magnesium Susp 30 Ml Udc) 30 ml PO Q6H PRN PRN Reason: Dyspepsia Stop: 07/12/22 16:57 Bisacodyl (Bisacodyl 10 Mg Supp) 10 mg [place] DAILY PRN PRN Reason: Constipation Stop: 07/12/22 16:57 Diphenhydramine HCl (Diphenhydramine Capsule 25 Mg Cap) 25 mg PO Q6H PRN PRN Reason: Allergic Rhinitis/Insomnia Stop: 07/12/22 16:57 Famotidine (Famotidine 20 Mg Tab) 20 mg PO Q12H PRN PRN Reason: Dyspepsia Stop: 07/12/22 16:57 Hydromorphone HCl (Hydromorphone Inj 0.5 Mg/0.5 Ml Syr) 0.5 mg IV Q3H PRN PRN Reason: MODERATE Pain (Scale 4,5,6) & Pre PT Stop: 06/26/22 16:57 Hydromorphone HCl (Hydromorphone Inj 1 Mg/Ml Syringe) 1 mg IV Q3H PRN PRN Reason: SEVERE Pain (Scale 7,8,9,10) Stop: 06/26/22 16:57 Hydroxyzine HCl (Hydroxyzine Hcl 25 Mg Tab) 25 mg PO Q8H PRN PRN Reason: Anxiety Stop: 07/12/22 16:57 Dexamethasone 6 mg/ Syringe 1.5 mls @ 1 mls/min IV DAILY [facility] Stop: 06/15/22 09:02 Last Admin: 06/13/22 08:37 Dose: 1 mls/min Promethazine HCl 12.5 mg/ (Sodium Chloride) 50.5 mls @ 202 mls/hr IV Q6H PRN PRN Reason: Nausea &/or Vomiting Stop: 07/12/22 16:57 Influenza Virus Vaccine Quadrival (Do Not Administer Flu Vaccine) 1 each N/A PRN PRN PRN Reason: Notification Stop: 07/12/22 16:57 Insulin Aspart (Insulin Aspart Per Unit Charge) 0 units SC ACHS [facility] Stop: 07/12/22 17:29 Last Admin: 06/13/22 20:45 Dose: 7 units Insulin Glargine (Lantus Per Unit Charge) 25 units SC BID [facility] Stop: 07/14/22 08:59 Lorazepam (Lorazepam 0.5 Mg Tab) 0.5 mg PO Q8H PRN PRN Reason: Sedation/Anxiety Stop: 07/12/22 16:57 Lorazepam (Lorazepam 2 Mg/1 Ml Vial) 0.5 mg IV Q8H PRN PRN Reason: Sedation/Anxiety Stop: 07/12/22 16:57 Magnesium Hydroxide (Magnesium Hydroxide Susp 30 Ml Udc) 30 ml PO Q24H PRN PRN Reason: Constipation Stop: 07/12/22 16:57 Metoclopramide HCl (Metoclopramide Hcl Inj 5 Mg/Ml 2 Ml Vial) 10 mg IV Q6H PRN PRN Reason: Nausea &/or Vomiting Stop: 07/12/22 16:57 Miscellaneous Information (Pharmacy Glycemic Mgmt Consult) 1 each N/A UD PRN PRN Reason: Consult Stop: 07/12/22 16:57 Naloxone HCl (Naloxone Hcl 0.4 Mg/1 Ml Vial/Carp) 0.1 mg IV Q5M PRN PRN Reason: Oversedation/Resp depression Stop: 07/12/22 16:57 Ondansetron HCl (Ondansetron Inj 2 Mg/Ml 2 Ml Vial) 4 mg IV Q6H PRN PRN Reason: Nausea &/or Vomiting Stop: 07/12/22 16:57 Ondansetron HCl (Ondansetron 4 Mg Od Tab) 4 mg PO Q6H PRN PRN Reason: Nausea Stop: 07/12/22 16:57 Oxycodone HCl (Oxycodone Hcl Ir 5 Mg Tab (Immediate Release)) 5 - 10 mg PO Q4H PRN PRN Reason: Pain & Pre PT Stop: 06/26/22 16:57 Last Admin: 06/14/22 05:48 Dose: 5 mg Pneumococcal Polyvalent Vaccine (Do Not Administer Pneumococcal Vaccine) 1 each N/A PRN PRN PRN Reason: Notification Stop: 07/12/22 16:57 Polyethylene Glycol (Polyethylene (Miralax) 17 Gm Pack) 17 gm PO Q6 [facility] Stop: 07/13/22 05:59 Last Admin: 06/14/22 05:48 Dose: 17 gm Senna/Docusate Sodium (Docusate Sodium/Senna 50/8.6mg Tab) 2 tab PO HS [facility]IE Stop: 07/12/22 20:59 Last Admin: 06/13/22 20:47 Dose: 2 tab Sodium Biphosphate/Sodium Phosphate (Sod Phosphate/Sod Biphosphate Enema 132 Ml Btl) 132 ml OH ONE PRN PRN Reason: Constipation Stop: 07/12/22 16:57 Tramadol HCl (Tramadol Hcl 50 Mg Tablet) 50 - 100 mg PO Q4H PRN PRN Reason: Moderate-Severe pain & Pre PT Stop: 07/12/22 16:57
[2022-06-14] MEDS: LANTUS PER UNIT CHARGE SC SCH ×2 (08:16→20:59)
--- NOTE | 2022-06-14 09:03 | Orthopedic Progress Note ---
Date of Service June 14, 2022 Assessment & Plan (1) Neurogenic claudication due to lumbar spinal stenosis: Plan: This time we will continue physical therapy monitor ELIZABETH output anticipate discharge home tomorrow. Admission and Anticipated Discharge Date Admission Date: June 12, 2022 Subjective Back pain is improving leg pain improving. Tolerating physical therapy well. Physical Exam Physical Exam: Patient is good strength testing. He is ambulating the halls well. Results & Data Vital Signs (Past 12 Hours) Vital Signs Temp Pulse Resp BP Pulse Ox O2 Del Method 06/14/22 07:21 36.5 C 86 18 145/81 H 97 Room Air
--- NOTE | 2022-06-14 11:51 | Pharmacy Report ---
Pharmacy Glycemic Short Note 2 - Date of Service June 14, 2022 - Glycemic Short BSG Results (Last 24 hours): 06/13/22 06/13/22 06/13/22 12:02 17:03 20:29 Glucose POC Glucose 254 H 225 H 213 H 06/14/22 06/14/22 01:32 06:39 Glucose 205 H POC Glucose 144 H OUTPATIENT ANTIDIABETIC REGIMEN: * N/A HbA1C: 9.1% on 06/13/22 ASSESSMENT: 06/14: * Patient received total of 98 units of insulin yesterday; 30 units basal and 68 units bolus. * He continues to be on IV Dexamethasone 6 mg daily x 3 doses. Tomorrow is his last dose of IV Dex. * BSGs yesterday were [phone] mg/dl. * Since BSGs were elevated yesterday due to IV steroids, basal insulin increased to 25 units BID which is between of stress on 2 and 3. This amounts to about 50% of patient's total insulin needs yesterday. * Pre-lunch BSG = 218 mg/dl. Novolog carb ratio tightened. 06/13/22: * Patient is a 56 year old male with DM2 not on any anti hyperglycemic medications at home. He is POD #1 spinal surgery. Pharmacy consulted to assist with glycemic management while inpatient. * Received 8mg IV dex pre-op and dexamethasone 6mg IV daily ongoing post-op. Tolerating diet. * BSGs [phone]/dL the last 24h. Patient received 20 units of basal and 39 units of bolus insulin yesterday. * Fasting BSG remains elevated today. Will titrate Lantus to 15 units BID (mild- moderate stress). Novolog ACHS severe stress scale. PLAN FOR INPATIENT GLYCEMIC CONTROL: * Hold outpatient oral diabetes medications * Basal insulin: * Lantus 25 units SQ BID * Bolus insulin: * NovoLog per scale ACHS or Q6hrs while NPO * Goal Range: Low 110 mg/dL - High 140 mg/dL * Correction Factor: 12 mg/dL/unit * Nutritional / Prandial insulin per carb ratio of 1 unit per 4.5 grams CHO consumed
[2022-06-14] MEDS: DOCUSATE SODIUM/SENNA 50/8.6MG TAB PO SCH (20:59)
[2022-06-15] MEDS ORDERED: INSULIN ASPART PER UNIT CHARGE SC SCH (02:00)
[2022-06-15] MEDS: oxyCODONE HCL IR 5 MG TAB (IMMEDIATE RELEASE) PO PRN ×2 (05:56→12:46)
[2022-06-15] MEDS: POLYETHYLENE (MIRALAX) 17 GM PACK PO SCH ×2 (05:56→12:22)
[2022-06-15] MEDS: dexAMETHasone 6 MG in SYRINGE 0 ML IV SCH (07:31)
[2022-06-15 08:11] LABS: Hematocrit (blood only) 33.6 % (42.0-52.0); Hemoglobin 11.6 g/dl (14.0-18.0); Mean Corpuscular Hemoglobin 29.9 pg (25.0-34.0); Mean Corpuscular Hgb Conc 34.5 g/dL (32.0-36.0); Mean Corpuscular Volume 86.6 fL (80.0-100.0); Mean Platelet Volume 9.1 fL (9.4-12.4); Platelet Count 167 K/uL (130-400); RDW Coefficient of Variation 12.7 % (11.5-14.5); Red Blood Count 3.88 M/uL (4.70-6.10); White Blood Count 12.04 K/ul (4.8-10.8)
[2022-06-15] MEDS: LANTUS PER UNIT CHARGE SC SCH (08:20)
[2022-06-15] MEDS: INSULIN ASPART PER UNIT CHARGE SC SCH ×2 (08:21→12:20)
[2022-06-15 08:33] LABS: BUN Creatinine Ratio 18.4 (10-20); Calcium 9.1 mg/dl (8.6-10.3); Creatinine Clr Calc Pharmacy 139.4 ml/min; Est GFR (African American) 118.2 ml/min; Magnesium 2.3 mg/dl (1.7-2.4); Phosphorus 3.4 mg/dl (2.5-4.9); Potassium 3.7 mmol/L (3.5-5.1)
--- NOTE | 2022-06-15 11:08 | Discharge Summary ---
Date of Service June 15, 2022 Admission HPI Per Admitting Provider This is a 56-year-old male who presents with chronic persistent worsening back and leg pain and failing course of nonoperative care he is here for surgical invention. Principal Diagnosis Lumbar spinal stenosis with spinal listhesis and disc herniation and radiculopathy Discharge Data Allergies Allergy/AdvReac Type Severity Reaction Status Date / Time No Known Allergies Allergy Verified 06/12/22 10:45 Consultations 06/12/22 16:58 Consult Hospitalist Routine Procedures Performed Operation Date: 06/12/22 11:55 Actual Procedures p L4-S1 Revision Decompression and Fusion, Spinal Cord Monitoring(Not Applicable) - Liborio Aragon DO Ordered Studies 06/12/22 11:55 FL lumbar spine 2-3V Routine Diabetes Follow up Diabetes Follow-up Needed for HgbA1c >9% Hospital Course (1) Neurogenic claudication due to lumbar spinal stenosis: Patient went lumbar decompression fusion tolerated as well as taken to orthopedic for postoperative. Stop date 1 he was up and ambulating progressed to postop day #2 on postop day #3 pain was well controlled ELIZABETH drain decreasing appropriately. Excellent strength testing. Subsequent discharge home. Discharge orders and instructions found in chart for further review. Total Time Total Time Spent Total Time Spent (In Minutes): 20 minutes Discharge Plan Discharge Items Patient Disposition: Home - Self-Care Reason For Visit: POSTOP Discharge Diagnosis: Lumbar stenosis with radiculopathy Activity: As commented below Non-emergency contact: Primary Care Provider Call non-emergency contact if: you have any medication questions Follow-up/Referrals: Ender Sidhu MD [Outside Practitioners] - (Date & Time 06/22/2022 2:20 PM Provider Ender Sidhu MD Department Family Medicine [facility] ) Diet: Regular Addtl Attending Provider Instructions: ACTIVITY RECOMMENDATIONS: SELF CARE INSTRUCTIONS AFTER THORACIC/LUMBAR FUSIONS 1. You may walk to your tolerance. It is good exercise for your legs and back. Expect some back and intermittent leg aches and pains. 2. You may perform "counter-top" level activities (make a sandwich, harris with a project, etc.). 3. No bending or lifting of more than 10 pounds or back twisting of any nature (roll like a log when turning in bed). 4. You may ride in a car for 20-30 minutes at a time. No driving until after your first visit with your doctor. 5. Frequent changes of position and restricting sitting to 30 minutes at a time will help limit the amount of back spasms and stiffness you may experience. 6. You may discontinue the use of ambulatory aids (cane, crutches, etc.) once your strength and confidence allow. 7. You may refrigeration system installer the shower and let water strike your incision when you arrive home at least once daily. Do not take a tub bath, sit in a hot tub or go into a swimming pool until after your first recheck in the office. SPECIAL CARE INSTRUCTIONS: VERY IMPORTANT TO READ AND REVIEW A. Your surgical incision has been closed with a cosmetic suture under the skin that will dissolve in about 6 weeks. In 14 days, you can use a pair of clean scissors and cut the suture that is left outside of the skin at the ends of your incision. 1. The small skin tapes can be removed 7 days after surgery if they have not fallen off by that point. 2. You may keep the wound open to air as much as possible to promote healing after post-op day number 5 unless told otherwise by your doctor. 3. If you think the wound looks like it is becoming infected (redness or worsening drainage) and/or you are experiencing fever, chill or worsening back pain and muscle spasms, contact the office so that we may evaluate you as soon as possible. B. Complications are uncommon, but please contact us if you have any signs or symptoms of: 1. wound infection (fever higher than 102.5 degrees F, redness, separation of wound, drainage, or increasing pain from the incision) 2. blood clots in legs (pain, swelling, redness and warmth in legs) 3. urinary tract infection (fever higher than 102.5 degrees F, burning upon urination or increased frequency of urination) 4. nerve problems (inability to walk on your toes or heels, numbness, loss of bowel or bladder control) 5. any other symptoms that concern you C. Please call the office at if you have any concerns or questions about your operation or recovery. D. No smoking! Smoking drastically decreases the chance of a solid fusion. E. Do not take any anti-inflammatory medications (Indocin, Advil, Motrin, Aspirin, Naprosyn, etc.) as these may inhibit the chance of a solid fusion. Tylenol is okay to take for pain. MANAGING PAIN AFTER SPINAL SURGERY 1. Narcotic medication is intended for short-term use and will be provided for surgical pain. Surgical pain usually lasts for a period of 4-6 weeks. Narcotic medication includes Percocet, Vicodin, Darvocet, Tylenol #3 or Lortab. 2. Longer-term pain is more appropriately treated with non-narcotic medication such as Tylenol ES. 3. Muscle spasm is not appropriately treated with narcotics. Muscle relaxers such as Soma, Flexeril or Skelaxin can be used along with Tylenol ES. 4. Remember that we all live with some "aches and pains". This is not unusual or uncommon after an injury or as we get older. a. Back pain is expected and may include muscle spasms for 4 to 6 weeks after surgery. The pain should gradually improve. If the pain worsens for no apparent reason, please contact the office. b. Intermittent leg pain may also be experienced and should not be concerned about unless it worsens for no apparent reason. If so, please contact the office. 5. We will provide appropriate medication within the normal guidelines of their prescribed use. We will also be very cautious and aware of potential abuse and extended duration of patients' medication needs. a. Pain medications are for your comfort and to assist with sleep and rest so that the tissue can heal. They are not provided in order to return to normal activity and should not be used through the day. To do so or worsening pain at night can result from ongoing tissue damage and development of tolerance to the prescribed medicine. 6. Please allow 2-3 days to process refills. Prescriptions will not be mailed but must be picked up at the office. FOLLOW UP VISIT: Keep your scheduled follow-up appointment. Any questions, please call the office at . Addtl Soda Worker Provider Instructions: Follow-up with primary care doctor, the appointment was scheduled for you with Vladimir Steinberg, on June 22, 2022. Start taking metformin 500 mg twice a day, take it with meals. Monitor blood sugar levels at home and record your numbers. Discuss with your primary care doctor how your medication should be adjusted. Pending Studies at Discharge: No Stand-Alone Forms: My [facility], Smoking Cessation Medications and DC Order Prescriptions: New tramadol 50 mg tablet 50 mg PO Q6H PRN (Reason: pain, moderate) Qty: 30 0RF oxycodone 5 mg tablet 5 mg PO DAILY PRN (Reason: pain) Qty: 30 0RF metformin 500 mg tablet extended release 24hr 500 mg PO BID Qty: 60 0RF Rx Instructions: take with meals Continued meloxicam 7.5 mg tablet 7.5 mg PO BID Qty: 60 2RF cyclobenzaprine 10 mg Tablet 10 mg PO BID PRN (Reason: Pain) acetaminophen 500 mg Tablet 500 mg PO TID PRN (Reason: Pain) ibuprofen 200 mg Tablet 400 mg PO Q6H PRN (Reason: Pain) Discharge Orders: Discharge Order (Routine); Ordered 06/15/22 Ordered By: Liborio Aragon Admission Data Admit Date/Time: 06/12/22 14:27 Attending Provider: Liborio Aragon Admit Provider: Liborio Aragon Primary Care Provider: Jax Tucker Other Providers: Dee oCle ; Jackson Khoury ; Mona Schwarz
--- NOTE | 2022-06-15 12:37 | Hospitalist Progress Note ---
Date of Service June 15, 2022 Assessment & Plan (1) S/P spinal surgery: Plan: This is a 56yo M with a PMH of DM II not on medications who is s/p revision decompression with medial facetectomy and foraminotomies L4-L5 L5-S1 and posterior spinal fusion L4-S1 by Dr. Aragon. POD#3 s/p revision decompression with medial facetectomy and foraminotomies L4- L5 L5-S1 and posterior spinal fusion L4-S1 by Dr. Aragon Per ortho for pain control, wound care, anticoagulation and activities Monitor H&H (pre-op hgb 16.1) Continue incentive spirometry, PT/OT when appropriate Anemia of acute blood loss 2/2 surgical blood loss and dilution current hgb 11.6, expected, no need for blood transfusion monitor h/h, ELIZABETH drain output (2) Diabetes mellitus, type II: Plan: A1c of 7 in Feb 2022 Not on any diabetic medications currently due to issues with subsequent hypoglycemia Understands he will be on insulin while admitted and receiving IV steroids. Glycemic pharmacy managing, bsg 254 Current A1C 9.1 % Consulted nursing educator - plan to start metformin 500mg bid upon discharge and follow up with PCP. (3) Alcohol use: Plan: Endorses 2 beers most nights but does go days at a time without drinking. No s/sx of withdrawal, can add PRN ativan and AWSS if clinical picture changes PCP: Appt arranged to establish with Dr. Sidhu, A1C 9.1; therefore started on metformin bid, pt educated on side effects to expect and will follow closely with PCP Dispo: Per primary service Thank you for this consultation. We will follow the patient with you during their hospital stay. You can reach a member of the [facility]ist Team 10/09 via [employer]. Admission and Anticipated Discharge Date Admission Date: June 12, 2022 Supervising Physician Co-Signing Physician Notes Pt seen and examined by me , care coordinated with Iqra Schwarz PA-C, pls refer to her note above for further detail. Patient is currently sitting up in chair, in no acute distress. Denies any fevers chills chest pain shortness of breath. Denies any abdominal pain nausea vomiting. Heart sounds regular. Lung sounds clear to auscultation. Abdomen obese soft, nontender to palpation, with positive bowel sounds. Pt is ambulating in his room. Discussed in detail his elevated A1c. Reports that he has issues with elevated blood sugar levels when on steroids. Discussed with clinical educator, plan to discharge on metformin and follow-up closely with PCP. Follow-up with PCP/to establish care with new [facility] PCP, also arranged. MD Peng Subjective Patient was seen and examined in room 303. Follow up lumbar surgery. Feels back pain is improving. He is ambulating in the [place] about every hour to keep from getting stiff. Denies fever, chills, sweats, chest pain, shortness with, nausea, vomit, abdominal pain. He is moving his bowels. He states he is worried about the bills are piling up as he has not sure if Workmen's Comp will pay. Review of Systems Review of Systems: All systems reviewed & are unremarkable except as noted in HPI & below Physical Exam Physical Exam: Gen: WD/WN, NAD, A&O x3 HEENT: Normocephalic, atraumatic, conjunctivae moist, sclerae anicteric, mucous membranes moist. Lung: Clear to Auscultation bilaterally, no wheezes/rales/rhonchi Heart: Regular rate, regular rhythm, no murmurs, rubs, or gallops Abdomen: Soft, NT, ND +BS x 4 Extremities: No edema, ELIZABETH drain with serosanguineous drainage, lumbar dressing CDI Skin: Warm, no rash, negative turgor. Results & Data Results & Data Vital Signs (Past 12 Hours) Vital Signs Temp Pulse Pulse Resp BP BP Pulse Ox 06/15/22 12:13 36.6 C 76 76 16 138/75 141/80 H 93 06/15/22 09:00 36.6 C 76 16 138/75 93 06/15/22 07:57 O2 Del Method 06/15/22 12:13 06/15/22 09:00 Room Air 06/15/22 07:57 Room Air Laboratory Results Short CBC 06/15/22 Range/Units 07:37 WBC 12.04 H (4.8-10.8) K/ul Hgb 11.6 L (14.0-18.0) g/dl Hct 33.6 L (42.0-52.0) % Plt Count 167 (130-400) K/uL BMP 06/15/22 07:37 Sodium 138 Potassium 3.7 Chloride 103 Carbon Dioxide 28 BUN 14 Creatinine 0.76 Glucose 110 H Calcium 9.1 Medications Administered Current Inpatient Medications Acetaminophen (Acetaminophen 500 Mg Tab) 1,000 mg PO Q8H PRN PRN Reason: MILD Pain Scale 1,2,3 & Pre PT Stop: 07/12/22 16:57 Last Admin: 06/14/22 21:01 Dose: 1,000 mg Al Hydrox/Mg Hydrox/Simethicone (Aluminum/Magnesium Susp 30 Ml Udc) 30 ml PO Q6H PRN PRN Reason: Dyspepsia Stop: 07/12/22 16:57 Bisacodyl (Bisacodyl 10 Mg Supp) 10 mg OK DAILY PRN PRN Reason: Constipation Stop: 07/12/22 16:57 Diphenhydramine HCl (Diphenhydramine Capsule 25 Mg Cap) 25 mg PO Q6H PRN PRN Reason: Allergic Rhinitis/Insomnia Stop: 07/12/22 16:57 Famotidine (Famotidine 20 Mg Tab) 20 mg PO Q12H PRN PRN Reason: Dyspepsia Stop: 07/12/22 16:57 Hydromorphone HCl (Hydromorphone Inj 0.5 Mg/0.5 Ml Syr) 0.5 mg IV Q3H PRN PRN Reason: MODERATE Pain (Scale 4,5,6) & Pre PT Stop: 06/26/22 16:57 Hydromorphone HCl (Hydromorphone Inj 1 Mg/Ml Syringe) 1 mg IV Q3H PRN PRN Reason: SEVERE Pain (Scale 7,8,9,10) Stop: 06/26/22 16:57 Hydroxyzine HCl (Hydroxyzine Hcl 25 Mg Tab) 25 mg PO Q8H PRN PRN Reason: Anxiety Stop: 07/12/22 16:57 Promethazine HCl 12.5 mg/ (Sodium Chloride) 50.5 mls @ 202 mls/hr IV Q6H PRN PRN Reason: Nausea &/or Vomiting Stop: 07/12/22 16:57 Influenza Virus Vaccine Quadrival (Do Not Administer Flu Vaccine) 1 each N/A PRN PRN PRN Reason: Notification Stop: 07/12/22 16:57 Insulin Aspart (Insulin Aspart Per Unit Charge) 0 units SC ACHS TRACIE Stop: 07/12/22 17:29 Last Admin: 06/15/22 12:20 Dose: 26 units Insulin Glargine (Lantus Per Unit Charge) 25 units SC BID TRACIE Stop: 07/14/22 08:59 Last Admin: 06/15/22 08:20 Dose: 25 units Lorazepam (Lorazepam 0.5 Mg Tab) 0.5 mg PO Q8H PRN PRN Reason: Sedation/Anxiety Stop: 07/12/22 16:57 Lorazepam (Lorazepam 2 Mg/1 Ml Vial) 0.5 mg IV Q8H PRN PRN Reason: Sedation/Anxiety Stop: 07/12/22 16:57 Magnesium Hydroxide (Magnesium Hydroxide Susp 30 Ml Udc) 30 ml PO Q24H PRN PRN Reason: Constipation Stop: 07/12/22 16:57 Last Admin: 06/14/22 21:22 Dose: 30 ml Metoclopramide HCl (Metoclopramide Hcl Inj 5 Mg/Ml 2 Ml Vial) 10 mg IV Q6H PRN PRN Reason: Nausea &/or Vomiting Stop: 07/12/22 16:57 Miscellaneous Information (Pharmacy Glycemic Mgmt Consult) 1 each N/A UD PRN PRN Reason: Consult Stop: 07/12/22 16:57 Naloxone HCl (Naloxone Hcl 0.4 Mg/1 Ml Vial/Carp) 0.1 mg IV Q5M PRN PRN Reason: Oversedation/Resp depression Stop: 07/12/22 16:57 Ondansetron HCl (Ondansetron Inj 2 Mg/Ml 2 Ml Vial) 4 mg IV Q6H PRN PRN Reason: Nausea &/or Vomiting Stop: 07/12/22 16:57 Ondansetron HCl (Ondansetron 4 Mg Od Tab) 4 mg PO Q6H PRN PRN Reason: Nausea Stop: 07/12/22 16:57 Oxycodone HCl (Oxycodone Hcl Ir 5 Mg Tab (Immediate Release)) 5 - 10 mg PO Q4H PRN PRN Reason: Pain & Pre PT Stop: 06/26/22 16:57 Last Admin: 06/15/22 05:56 Dose: 5 mg Pneumococcal Polyvalent Vaccine (Do Not Administer Pneumococcal Vaccine) 1 each N/A PRN PRN PRN Reason: Notification Stop: 07/12/22 16:57 Polyethylene Glycol (Polyethylene (Miralax) 17 Gm Pack) 17 gm PO Q6 TRACIE Stop: 07/13/22 05:59 Last Admin: 06/15/22 12:22 Dose: Not Given Senna/Docusate Sodium (Docusate Sodium/Senna 50/8.6mg Tab) 2 tab PO HS TRACIE Stop: 07/12/22 20:59 Last Admin: 06/14/22 20:59 Dose: 2 tab Sodium Biphosphate/Sodium Phosphate (Sod Phosphate/Sod Biphosphate Enema 132 Ml Btl) 132 ml OK ONE PRN PRN Reason: Constipation Stop: 07/12/22 16:57 Tramadol HCl (Tramadol Hcl 50 Mg Tablet) 50 - 100 mg PO Q4H PRN PRN Reason: Moderate-Severe pain & Pre PT Stop: 07/12/22 16:57 Last Admin: 06/15/22 02:15 Dose: 50 mg
== END 2022-06-15 13:45 | disposition home or self-care (01) | DRG 454 ==
LOC: ASU 10:23 → PACUINP 14:27 → 3E 16:59

== ENCOUNTER 2023-10-17 20:49 | Inpatient (IN) ==
[2023-10-17 22:00] LABS: Alanine Aminotransferase 14 U/L (7-52); Albumin Globulin Ratio 1.7 (0.9-2); Albumin Level 4.8 gm/dl (3.4-5.0); Alkaline Phosphatase 88 U/L (34-104); Anion Gap 10 (3-11); BUN Creatinine Ratio 13.2 (10-20); Bilirubin,Total 0.7 mg/dl (0.2-1.0); Blood Urea Nitrogen 10 mg/dl (6-23); Calcium 9.4 mg/dl (8.6-10.3); Carbon Dioxide 21 mmol/L (21-32); Chloride 104 mmol/L (98-107); Est GFR (African American) 116.6 ml/min; Est GFR (Non-African American) 100.6 ml/min; Globulin 2.8 gm/dl (2.5-4.0); Glucose 219 mg/dl (70-99(Fasting)); Lipase 9 U/L (11-82); Sodium 135 mmol/L (136-145); Total Protein 7.6 gm/dl (6.0-8.3)
--- NOTE | 2023-10-17 22:34 | Emergency Department Note ---
History of Present Illness General Chief complaint: Abdominal Pain Stated complaint: SEVERE ABD PAIN, VOMITING Time Seen by Provider: 10/17/23 22:01 History of Present Illness Maximum Pain Intensity: 9 This 58-year-old male whose had a prior appendectomy presents ER complaining of mid abdominal pain with a bulge present. Patient denies chest pain, dyspnea, fevers, vomiting, diarrhea, flank pain, urinary symptoms. No injury to the area. No known hernia. He did move his bowels today. Home Medications Medication Instructions Recorded Confirmed Type acetaminophen 500 mg tablet 1,000 mg PO DIRECTED PRN Pain 06/08/22 10/17/23 History ibuprofen 200 mg tablet 400 mg PO DIRECTED PRN Pain 06/08/22 10/17/23 History Allergies Allergy/AdvReac Type Severity Reaction Status Date / Time No Known Allergies Allergy Verified 10/17/23 23:18 Past Med/Surg History Problem List Abdominal pain, acute (Acute) Biliary colic (Acute) Alcohol use Diabetes mellitus, type II S/P spinal surgery Neurogenic claudication due to lumbar spinal stenosis Carpal tunnel syndrome, left Prostate CA (Chronic) pathology 03/16/19 > surgical intervention Medical History Elevated glucose Per patient, PCP had noted the elevated glucoses in the past were all in setting of recent steroid use for back pain (per patient, has had multiple recent steroid injections/use through Dr. Rick for back pain). PCP had attempted insulin/antiglycemics but resulted in significantly low glucoses/complications so patient just being diet managed at this time Chronic back pain Obesity Surgical History S/P epidural steroid injection caudal epidural steroid injection x2 03/2022 Dr Rick Nausea and vomiting after administration of anesthetic agent History of prostatectomy History of appendectomy History of surgery on left wrist multiple History of back surgery 1989 fusion lumbar Family History Father , age 64 of gangrene from diabetes Diabetes Mother , age 67 Lung cancer long time smoker Brother , age 64 Diabetes Sister , age 59 Lung cancer heavy smoker Son No problems noted. Son No problems noted. Other Heart disease No family history of adverse response to anesthesia Social History Smoking Status: Current every day smoker Tobacco Type: Cigarettes and Smokeless Tobacco (Dip or Chew) Age Started Using Tobacco: 18; Age Quit Using Tobacco: 50; packs per day: 1; Cigarettes Per Day: 1 ppd previously, now only occ cig; Second Hand Exposure: Yes ( smokes); Do You Dip or Chew Tobacco: Yes (1 can/2 days); Hx Alcohol Use: Yes Alcohol type: beer Alcohol Intake Frequency: 4 or More x per/Week Alcohol Intake Frequency Comment: 2 beers most nights Hx Substance Use: No Preferred Language: Japanese Communication Ability: Effective Visual Impairment: No Limitations Hearing Ability: Normal Education Teacher Required: No Beliefs That Will Affect Care: None marital status: Current Living Situation: Family current occupational status: employed 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 Feels Safe at Home: Yes Childhood Exposure to Second-Hand Smoke: Yes Diet: regular caffeine: Yes Do you think of yourself as: straight/heterosexual Assistive Devices: None Review of Systems A total of 10 systems reviewed and were otherwise negative Physical Exam Vital Signs Vital Signs - 24 hr 10/17/23 20:58 10/17/23 22:06 10/17/23 22:50 Temperature 36.5 C Temperature Source Temporal Artery Scan Pulse Rate 66 61 Pulse Rate [Right] 76 Respiratory Rate 16 18 Respiratory Effort / Characteristics Non-Labored Respiratory Depth Normal Normal Blood Pressure 140/84 Blood Pressure [Left Arm] 134/72 Blood Pressure Mean 102 Blood Pressure Mean [Left Arm] 92 Pulse Oximetry 95 98 Oxygen Delivery Method Room Air Room Air Sepsis Recent Fever Within 48 Hours No Sepsis New/Unexplained Change in Mental Status No Sepsis Action Taken by Nursing No Action Required 10/18/23 01:00 Temperature Temperature Source Pulse Rate Pulse Rate [Right] Respiratory Rate Respiratory Effort / Characteristics Respiratory Depth Blood Pressure Blood Pressure [Left Arm] 140/81 Blood Pressure Mean Blood Pressure Mean [Left Arm] 100 Pulse Oximetry Oxygen Delivery Method Sepsis Recent Fever Within 48 Hours Sepsis New/Unexplained Change in Mental Status Sepsis Action Taken by Nursing VITALS: Vitals are noted on the nurse's note and reviewed by myself. Vital signs stable. GENERAL: Pleasant gentleman, in no acute distress, nondiaphoretic, well- developed well-nourished. SKIN: Capillary reflex less than 2 seconds. HEENT: Normocephalic. PERRLA. EOMI. Nares patent. Mucous membranes moist. Neck is supple without nuchal rigidity. HEART: Regular rate and rhythm LUNGS: Clear to auscultation bilaterally without wheezes, rales or rhonchi. No retractions or accessory muscle use. ABDOMEN: Positive bowel sounds x 4. Normal tympanic percussion. Soft, tender periumbilical, without masses or organomegaly. Banegas sign negative. No guarding or rebound tenderness. no CVA tenderness MUSCULOSKELETAL: No gross musculoskeletal defects. NEURO: Patient was alert and oriented to person place and time. No focal neurological deficits. Course Administered Medications Discontinued Medications Sodium Chloride (Nss) 1,000 mls @ 999 mls/hr IV .Q1H1M ONE Stop: 10/17/23 23:06 Last Infusion: 10/17/23 23:52 Dose: Infused Documented By: Admin: 10/17/23 22:50 Dose: 999 mls/hr Documented By: Acetaminophen (Ofirmev) 1,000 mg in 100 mls @ 400 mls/hr IV NOW STA Stop: 10/17/23 22:20 Last Infusion: 10/17/23 23:52 Dose: Infused Documented By: Admin: 10/17/23 22:50 Dose: 400 mls/hr Documented By: Piperacillin Sod/Tazobactam Sod (Zosyn) 4.5 gm in 100 mls @ 200 mls/hr IV NOW ONE Stop: 10/18/23 03:11 Last Infusion: 10/18/23 03:55 Dose: Infused Documented By: Admin: 10/18/23 03:15 Dose: 200 mls/hr Documented By: BRANDON Ioversol (Optiray 320 100ml) 100 ml IV ONCE ONE Stop: 10/17/23 22:37 Last Admin: 10/17/23 22:37 Dose: 93 ml Documented By: MALOU Ketorolac Tromethamine (Ketorolac Tromethamine 15 Mg/Ml Vial) 10 mg IV NOW STA Stop: 10/18/23 01:05 Last Admin: 10/18/23 01:44 Dose: 10 mg Documented By: TEE Ondansetron HCl (Ondansetron Inj 2 Mg/Ml 2 Ml Vial) 4 mg IV NOW STA Stop: 10/17/23 22:07 Last Admin: 10/17/23 22:49 Dose: 4 mg Documented By: Medical Decision Making Medical Records Attestation: I reviewed the patient's medical records. Home Medications Current Medication List: was personally reviewed by me Laboratory Data Attestation: I reviewed the patient's lab results. 10/17/23 22:46 10/17/23 22:46 Lab Results 10/17/23 10/17/23 10/18/23 Range/Units 21:13 22:46 00:12 WBC Cancelled 11.96 H RBC Cancelled 5.25 Hgb Cancelled 15.6 Hct Cancelled 44.9 MCV Cancelled 85.5 MCH Cancelled 29.7 MCHC Cancelled 34.7 RDW Std Deviation Cancelled 38.6 RDW Coeff of Tung Cancelled 12.5 Plt Count Cancelled 196 MPV Cancelled 9.0 L Immature Gran % (Auto) Cancelled 0.4 Neut % (Auto) Cancelled 77.1 Lymph % (Auto) Cancelled 15.6 [place] % (Auto) Cancelled 5.9 Eos % (Auto) Cancelled 0.5 Baso % (Auto) Cancelled 0.5 Neut # (Auto) Cancelled 9.22 H Lymph # (Auto) Cancelled 1.86 [place] # (Auto) Cancelled 0.71 H Eos # (Auto) Cancelled 0.06 Baso # (Auto) Cancelled 0.06 Immature Gran # (Auto) Cancelled 0.05 Absolute Nucleated RBC Cancelled Nucleated RBC % (auto) Cancelled Neutrophils % (Manual) Cancelled Band Neutrophils % Cancelled Lymphocytes % (Manual) Cancelled Prolymphocyte % Cancelled Reactive Lymphs % (Man) Cancelled Monocytes % (Manual) Cancelled Eosinophils % (Manual) Cancelled Basophils % (Manual) Cancelled Metamyelocytes % (Man) Cancelled Myelocytes % (Man) Cancelled Promyelocytes % (Man) Cancelled Blast Cells % (Manual) Cancelled Plasma Cell % (Manual) Cancelled Other Cells % Cancelled Nucleated RBC % Cancelled Neutrophils # (Manual) Cancelled Band Neutrophils # Cancelled Total Absolute Neuts Cancelled Lymphocytes # (Manual) Cancelled Prolymphocyte # Cancelled Reactive Lymphs # Cancelled Total Abs Lymphocytes Cancelled Monocytes # (Manual) Cancelled Eosinophils # (Manual) Cancelled Basophils # (Manual) Cancelled Metamyelocytes # (Man) Cancelled Myelocytes # (Manual) Cancelled Promyelocytes # (Man) Cancelled Blast Cells # (Man) Cancelled Plasma Cell # (Manual) Cancelled Other Cells # Cancelled Nucleated RBCs # (Man) Cancelled Hypersegmented Neuts Cancelled Hyposegmented Neuts Cancelled Hypogranular Neuts Cancelled Large Granular Lymphs Cancelled # Lrg Granular Lymphs Cancelled Hairy Cells Cancelled Smudge Cells Cancelled Toxic Granulation Cancelled Toxic Vacuolation Cancelled Dohle Bodies Cancelled Justina Rods Cancelled Platelet Estimate Cancelled Hypogranular Platelets Cancelled Giant Platelets Cancelled Platelet Satelliting Cancelled RBC Morphology Cancelled Polychromasia Cancelled Hypochromasia Cancelled Poikilocytosis Cancelled Basophilic Stippling Cancelled Anisocytosis Cancelled Microcytosis Cancelled Macrocytosis Cancelled Spherocytes Cancelled Pappenheimer Bodies Cancelled Sickle Cells Cancelled Target Cells Cancelled Tear Drop Cells Cancelled Ovalocytes Cancelled Stomatocytes Cancelled [place] Bodies Cancelled Echinocytes Cancelled Acanthocytes (Spur) Cancelled Rouleaux Cancelled RBC Agglutinates Cancelled Schistocytes Cancelled Sezary Cell Cancelled Sodium 135 L (136-145) mmol/L Potassium TNP 3.6 Chloride 104 (98-107) mmol/L Carbon Dioxide 21 (21-32) mmol/L Anion Gap 10 (3-11) BUN 10 (6-23) mg/dl Creatinine 0.76 (0.6-1.4) mg/dl Est Cr Clr Drug Dosing 132.0 ml/min Est GFR ( Amer) 116.6 ml/min Est GFR (Non-Af Amer) 100.6 ml/min BUN/Creatinine Ratio 13.2 (10-20) Glucose 219 H (70-99(Fasting)) mg/dl Calcium 9.4 (8.6-10.3) mg/dl Total Bilirubin 0.7 (0.2-1.0) mg/dl AST TNP 11 L ALT 14 (7-52) U/L Alkaline Phosphatase 88 (34-104) U/L Total Protein 7.6 (6.0-8.3) gm/dl Albumin 4.8 (3.4-5.0) gm/dl Globulin 2.8 (2.5-4.0) gm/dl Albumin/Globulin Ratio 1.7 (0.9-2) Lipase 9 L (11-82) U/L Urine Color Yellow Urine Appearance Clear (Clear) Urine pH 5.5 (4.5-7.5) Ur Specific [place] > 1.045 H (1.000-1.030) Urine Protein Trace H (Negative) Urine Glucose (UA) 1+ H (Negative) Urine Ketones 2+ H (Negative) Urine Blood Negative (Negative) Urine Nitrite Negative (Negative) Urine Bilirubin Negative (Negative) Urine Urobilinogen Negative (Negative) Ur Leukocyte Esterase Negative (Negative) Urine WBC (Auto) 0-5 (0-5) /hpf Urine RBC (Auto) 0-2 (0-2) /hpf U Hyaline Cast (Auto) 0-2 (0-2) /lpf U Epithel Cells (Auto) 0-2 (0-2) /hpf Urine Bacteria (Auto) None Seen (None Seen) Blood Parasites ID Cancelled Imaging Data Attestation: I personally reviewed and interpreted this imaging study as follows: Radiologist's Impression: Abdomen/Pelvis CT 10/17/23 22:06 Exam(s): CT ABDOMEN + PELVIS With Contrast IV Amt: 93 ml optiray 320 EXAM: CT Abdomen and Pelvis With Intravenous Contrast CLINICAL HISTORY: Reason for exam: mid abd pain. TECHNIQUE: Axial computed tomography images of the abdomen and pelvis with intravenous contrast. CTDI is 27.04 mGy and DLP is 1400.35 mGy-cm. Automated exposure control was utilized for the study. A dose lowering technique was utilized adhering to the principles of ALARA. CONTRAST: Patient received 93 ml optiray 320 of IV contrast COMPARISON: No relevant prior studies available. FINDINGS: Lung bases: Unremarkable. No mass. No consolidation. ABDOMEN: Liver: Unremarkable. No mass. Gallbladder and bile ducts: Cholelithiasis. Hepatic steatosis. No ductal dilation. Pancreas: Unremarkable. No mass. No ductal dilation. Spleen: Unremarkable. No splenomegaly. Adrenals: Unremarkable. No mass. Kidneys and ureters: Unremarkable. No solid mass. No hydronephrosis. Stomach and bowel: Diverticulosis, without acute diverticulitis. No small bowel obstruction. No free intraperitoneal air. PELVIS: Appendix: No findings to suggest acute appendicitis. Bladder: Unremarkable. No mass. Reproductive: Unremarkable as visualized. ABDOMEN and PELVIS: Intraperitoneal space: Unremarkable. No free air. No significant fluid collection. Bones/joints: Degenerative changes of the spine. Posterior fusion at L4-S1. No acute fracture. No dislocation. Soft tissues: Unremarkable. Vasculature: Atherosclerotic changes of the aorta. No abdominal aortic aneurysm. Lymph nodes: Unremarkable. No enlarged lymph nodes. IMPRESSION: 1. Cholelithiasis. Hepatic steatosis. 2. Diverticulosis, without acute diverticulitis. No small bowel obstruction. No free intraperitoneal air. Electronically signed by: Everton Wan MD 10/18/23 00:58 AM MDM Narrative Prior records/ancillary studies reviewed. Triage Nursing notes reviewed. Additional history obtained from family. The patient's history was concerning for abdominal pain. Differential diagnosis: Etiologies such as hernia, diverticulitis, PUD, biliary pathology, UTI, pancreatitis, obstruction, mesenteric ischemia, aortic pathology, infections, inflammatory bowel disease, renal colic, as well as others were entertained. Physical examination findings: As above. ER treatment provided: An order was placed for continuous cardiac monitoring. The monitor shows a rate of 60-100 with a sinus rhythm per my Independent interpretation. Tylenol, Zofran, IV fluids were ordered Zosyn was ordered for possible GB On reassessment the patient felt better. Diagnostics interpreted by me: The labs Independently Interpreted by myself revealed hyperglycemia without DKA Mild leukocytosis, normal LFTs Imaging studies: CT and ultrasound was reviewed and read by radiology as above Consultation: A consultation was placed with the surgery. The case was discussed and diagnostics were reviewed. The patient was evaluated in the ER for further treatment. They recommend antibiotics and medical admission. Medicine was consulted and the case was discussed. Patient will be admitted to the medical service. Exam and history seem consistent with abdominal pain with concerns for biliary colic with possible acute cholecystitis. Surgery and medicine were consulted. Surgery recommends medical admission with antibiotics. Medicine accepts the patient for admission. Patient was started on Zosyn and is agreeable treatment plan of admission. Patient was admitted to the medical service. Normal LFTs. Mild leukocytosis. Patient was well-appearing. By the evaluation outlined above emergent etiologies such as appendicitis, diverticulitis, UTI, pancreatitis, obstruction, mesenteric ischemia, aortic pathology, inflammatory bowel disease, renal colic, as well as others were deemed relatively unlikely. The pt informed about the findings as listed above. All questions were answered and pleased with the treatment. The chart was completed utilizing [employer] Speech voice recognition software. Grammatical errors, random word insertions, pronoun errors, and incomplete sentences are an occassional consequence of this system due to software limitations, ambient noise, and hardware issues. Any formal questions or concerns about the content, text, or information contained within the body of this dictation should be directly addressed to the physician assistant foreman for clarification. Impression & Plan Biliary colic, Abdominal pain, acute Discharge Plan Visit Data Chief Complaint: Abdominal Pain Stated Complaint: SEVERE ABD PAIN, VOMITING ED Provider: Chad Kurtz ED Midlevel Provider: Patricia Cohen Discharge Problem: Biliary colic, Abdominal pain, acute Patient Disposition: Admitted As Inpatient Condition: Good Forms Stand Alone Forms: [employer] [place] [employer] Prescriptions Prescriptions: No Action acetaminophen 500 mg Tablet 1,000 mg PO DIRECTED PRN (Reason: Pain) ibuprofen 200 mg Tablet 400 mg PO DIRECTED PRN (Reason: Pain) Referrals Referrals: Ender Sidhu MD [Primary Care Provider] -
[2023-10-17] MEDS: OPTIRAY 320 100ml IV ONE (22:37)
[2023-10-17] MEDS: ONDANSETRON INJ 2 MG/ML 2 ML VIAL IV STA (22:49)
[2023-10-17] MEDS: ACETAMINOPHEN 1,000 MG/100 ML VIAL IV STA (22:50)
[2023-10-17] MEDS: SODIUM CHLORIDE 0.9% 1,000 ML IV ONE (22:50)
[2023-10-17 23:04] LABS: Basophils # (auto) 0.06 K/uL (0.00-0.20); Basophils % (auto) 0.5 %; Eosinophils # (auto) 0.06 K/uL (0.00-0.50); Eosinophils % (auto) 0.5 %; Hematocrit (blood only) 44.9 % (42.0-52.0); Hemoglobin 15.6 g/dl (14.0-18.0); Immature Granulocytes # (auto) 0.05 K/uL (0.01-0.20); Immature Granulocytes % (auto) 0.4 %; Lymphocytes # (auto) 1.86 K/uL (1.20-3.40); Lymphocytes % (auto) 15.6 %; Mean Corpuscular Hemoglobin 29.7 pg (25.0-34.0); Mean Corpuscular Hgb Conc 34.7 g/dL (32.0-36.0); Mean Corpuscular Volume 85.5 fL (80.0-100.0); Monocytes # (auto) 0.71 K/uL (0.11-0.59); Monocytes % (auto) 5.9 %; Neutrophils # (auto) 9.22 K/uL (1.40-6.50); Neutrophils % (auto) 77.1 %; Platelet Count 196 K/uL (130-400); RDW Coefficient of Variation 12.5 % (11.5-14.5); RDW Standard Deviation 38.6 fL (36.4-46.3); Red Blood Count 5.25 M/uL (4.70-6.10); White Blood Count 11.96 K/ul (4.8-10.8)
[2023-10-17 23:22] LABS: Potassium 3.6 mmol/L (3.5-5.1)
[2023-10-18 00:29] LABS: Appearance Urine Clear (Clear); Bacteria Urine Automated None Seen (None Seen); Bilirubin Urine Negative (Negative); Blood Urine Negative (Negative); Cast Urine Automated 0-2 /lpf (0-2); Color Urine Yellow; Epithelial Cell Urine Auto 0-2 /hpf (0-2); Glucose Urine UA 1+ (Negative); Ketones Urine 2+ (Negative); Leukocyte Esterase Urine Negative (Negative); Nitrite Urine Negative (Negative); Protein Urine Trace (Negative); RBC Urine Automated 0-2 /hpf (0-2); Specific Gravity Urine > 1.045 (1.000-1.030); Urobilinogen Urine Negative (Negative); WBC Urine Automated 0-5 /hpf (0-5); pH Urine 5.5 (4.5-7.5)
--- NOTE | 2023-10-18 00:59 | CT Scan Report ---
Exam(s): CT ABDOMEN + PELVIS With Contrast IV Amt: 93 ml optiray 320 EXAM: CT Abdomen and Pelvis With Intravenous Contrast CLINICAL HISTORY: Reason for exam: mid abd pain. TECHNIQUE: Axial computed tomography images of the abdomen and pelvis with intravenous contrast. CTDI is 27.04 mGy and DLP is 1400.35 mGy-cm. Automated exposure control was utilized for the study. A dose lowering technique was utilized adhering to the principles of ALARA. CONTRAST: Patient received 93 ml optiray 320 of IV contrast COMPARISON: No relevant prior studies available. FINDINGS: Lung bases: Unremarkable. No mass. No consolidation. ABDOMEN: Liver: Unremarkable. No mass. Gallbladder and bile ducts: Cholelithiasis. Hepatic steatosis. No ductal dilation. Pancreas: Unremarkable. No mass. No ductal dilation. Spleen: Unremarkable. No splenomegaly. Adrenals: Unremarkable. No mass. Kidneys and ureters: Unremarkable. No solid mass. No hydronephrosis. Stomach and bowel: Diverticulosis, without acute diverticulitis. No small bowel obstruction. No free intraperitoneal air. PELVIS: Appendix: No findings to suggest acute appendicitis. Bladder: Unremarkable. No mass. Reproductive: Unremarkable as visualized. ABDOMEN and PELVIS: Intraperitoneal space: Unremarkable. No free air. No significant fluid collection. Bones/joints: Degenerative changes of the spine. Posterior fusion at L4-S1. No acute fracture. No dislocation. Soft tissues: Unremarkable. Vasculature: Atherosclerotic changes of the aorta. No abdominal aortic aneurysm. Lymph nodes: Unremarkable. No enlarged lymph nodes. IMPRESSION: 1. Cholelithiasis. Hepatic steatosis. 2. Diverticulosis, without acute diverticulitis. No small bowel obstruction. No free intraperitoneal air. Electronically signed by: Everton Wan MD 10/18/23 00:58 AM
--- OUTSIDE RECORDS SUMMARY | 2023-10-18 01:28 | External Medical Summary | Continuity of Care Document ---
Author Name Unknown Organization [facility] [address] [place] [place] [phone] Encounter PSH FINNBR [id number] Date(s): 09/17/23 - 09/17/23 [facility] [address] [place] [facility] [place] [address], [address] [place] [address] [phone] Encounter Diagnosis Lumbar pseudoarthrosis(Discharge Diagnosis) - 09/17/23 Discharge Disposition: Home or Self Care Attending Physician: MD Gonzalo, Sushant Cox Allergies, Adverse Reactions, Alerts No Known Allergies Medications cyclobenzaprine 10 mg oral tablet Start: 05/07/22 9:09:00 AM EDT Start Date: 05/07/22 Status: Ordered ibuprofen Start: 03/06/22 1:28:00 PM EST, unknown, PRN: as needed for pain Start Date: 03/06/22 Status: Ordered meloxicam 7.5 mg oral tablet Start: 05/07/22 9:09:00 AM EDT Start Date: 05/07/22 Status: Ordered Myrbetriq 50 mg oral tablet, extended release Start: 05/23/22 9:39:00 AM EDT, take 1 tablet by oral route every day swallowing whole with water. Donot crush, chew and/or divide. 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
--- OUTSIDE RECORDS SUMMARY | 2023-10-18 01:28 | External Medical Summary | Continuity of Care Document ---
Author Name Unknown Organization [place] [address] Address [address] [place] [place] [phone] Encounter [facility] FINNBR [id number] Date(s): [facility] [address] 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 Spondylolisthesis, lumbar region Confirmed Active Lumbosacral radiculopathy Confirmed Active Diagnosis Diagnosis Type Effective Dates Health Status Clinical Service Informant Lumbosacral radiculopathy Discharge Diagnosis 08/27/23 Procedures Procedure Date Related Diagnosis Body Site Status Appendectomy Completed Prostate Completed Surgery 1 Completed Wrist 2 Completed 1back 2left Social History Social History Type Response Smoking Status Never smoked cigaret long Sex Patient Care team information Care Team Related Persons Name: KIMBERLY GARRETT Guido Address: home [address] [place] [address] [place] [phone]
[2023-10-18] MEDS: KETOROLAC TROMETHAMINE 15 MG/ML VIAL IV STA (01:44)
--- NOTE | 2023-10-18 02:58 | Surgery Consultation ---
Date of Consultation October 18, 2023 Assessment & Plan (1) Biliary colic: I discussed with the treating clinician in the emergency department and the patient is being admitted on the hospitalist service From surgery perspective we recommend the following: Will be deferred to the medical service the patient will need to have any medicines initiated due to his elevated glucose levels. Provide analgesics Provide antiemetics Hydrate with IV fluids Initiate antibioticsthe treating clinician in the emergency department has initiated Zosyn but should continue. Implement n.p.o. status Repeat LFTs in the morning It appears that the patient has cholecystitis/biliary colic. I discussed with the patient that typically the treatment of choice for this is cholecystectomy. The patient be evaluated by Dr. Pagan about any tissue and general surgery the morning of 10/18/2023 to determine if he will proceed with cholecystectomy. Would recommend using SCDs only for DVT prevention, no chemical means due to planned surgery Supervising Physician Co-Signing Physician Notes Patient seen and examined, labs and imaging reviewed, agree with above. 58-year-old male with postprandial right upper quadrant pain over the past several months that worsened over the past few days. On exam he is afebrile stable vitals. His abdomen is soft but tender to palpation in the right upper quadrant. Labs unremarkable. CT and ultrasound show cholelithiasis with suspected acute cholecystitis. plan for laparoscopic cholecystectomy with possible cholangiogram risks discussed to include but not limited to bleeding, infection, retained stone, bile leak, open surgery, damage to surrounding structures including bile duct, need for future or more extensive surgery, failure to treat symptoms, and risks of anesthesia. Potential discharge this afternoon versus tomorrow Wound care instructions, activity restrictions, and return precautions given Follow-up in 2 weeks in general surgery clinic Dr. Varma covering for the History of Present Illness Reason for Consultation: Abdominal pain History of Present Illness This is a 58-year-old male who presented to the emergency department secondary to abdominal pain. The patient notes that he has been having this pain on and off for several weeks, particularly after he eats. He does the pain became markedly worse last evening prompting his visit to the emergency department. He denies any fevers, shakes, or chills. He does report associated nausea and vomiting. Patient notes that he has had prior abdominal surgery in the form of an appendectomy as well as a prostatectomy in the past. With his current pain as noted above it is worse after eating and he does not note any modifying factors other than medicines administered in the emergency department. Since arrival to hospital patient has had labs and imaging which independent reviewed. A CT scan of the abdomen pelvis showed the patient had gallstones. There is no biliary ductal dilatation on this study. There is no evidence of small bowel obstruction or free intraperitoneal air. A gallbladder ultrasound was performed that showed patient had a gallstone in the gallbladder neck. The official radiology read was pending at the time of this dictation but the technologist noted that the gallbladder wall was slightly thickened with some pericholecystic fluid. Labs include a CBC were white blood cell count was elevated 11.9. Hemoglobin and hematocrit as well as the platelet count were normal. Chemistry profile showed sodium was 135 with a normal potassium. BUN and creatinine were both within normal range. There is no elevation of the patient's LFTs. Urinalysis was not indicative of infection. There is also noteworthy to mention that the patient has a glucose level of 219 raising the suspicion that patient has diagnosis of diabetes, although he does not take any medication for this. An EKG was performed that showed sinus rhythm without changes indicative of acute ischemia. A chest x-ray was performed did not appear to have any evidence of pneumonia. At the time of my interview he was resting comfortably in bed he was in no distress. Allergies Allergy/AdvReac Type Severity Reaction Status Date / Time No Known Allergies Allergy Verified 10/17/23 23:18 Home Medications Medication Instructions Recorded Confirmed Type acetaminophen 500 mg tablet 1,000 mg PO DIRECTED PRN Pain 06/08/22 10/17/23 History ibuprofen 200 mg tablet 400 mg PO DIRECTED PRN Pain 06/08/22 10/17/23 History Patient History Medical History Elevated glucose Per patient, PCP had noted the elevated glucoses in the past were all in setting of recent steroid use for back pain (per patient, has had multiple recent steroid injections/use through Dr. Rick for back pain). PCP had attempted insulin/antiglycemics but resulted in significantly low glucoses/complications so patient just being diet managed at this time Chronic back pain Obesity Surgical History S/P epidural steroid injection caudal epidural steroid injection x2 03/2022 Dr Rick Nausea and vomiting after administration of anesthetic agent History of prostatectomy History of appendectomy History of surgery on left wrist multiple History of back surgery 1989 fusion lumbar Family History Father , age 64 of gangrene from diabetes Diabetes Mother , age 67 Lung cancer long time smoker Brother , age 64 Diabetes Sister , age 59 Lung cancer heavy smoker Son No problems noted. Son No problems noted. Other Heart disease No family history of adverse response to anesthesia Social History Smoking Status: Current every day smoker Tobacco Type: Cigarettes and Smokeless Tobacco (Dip or Chew) Age Started Using Tobacco: 18; Age Quit Using Tobacco: 50; packs per day: 1; Cigarettes Per Day: 1 ppd previously, now only occ cig; Second Hand Exposure: Yes ( smokes); Do You Dip or Chew Tobacco: Yes (1 can/2 days); Hx Alcohol Use: Yes Alcohol type: beer Alcohol Intake Frequency: 4 or More x per/Week Alcohol Intake Frequency Comment: 2 beers most nights Hx Substance Use: No Preferred Language: Malawian Communication Ability: Effective Visual Impairment: No Limitations Hearing Ability: Normal Senior Qa Tester Required: No Beliefs That Will Affect Care: None marital status: Current Living Situation: Family current occupational status: employed 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 Feels Safe at Home: Yes Childhood Exposure to Second-Hand Smoke: Yes Diet: regular caffeine: Yes Do you think of yourself as: straight/heterosexual Assistive Devices: None Review of Systems Review of Systems: All systems reviewed & are unremarkable except as noted in HPI & below Physical Exam Constitutional: well developed, well nourished and + obese; no acute distress Eyes: + anicteric sclerae ENMT: Ears: no hearing impairment and no external ear abnormality Mouth: no oropharynx abnormality Neck: trachea midline Respiratory: normal respiratory effort; no respiratory distress and no labored breathing Cardiovascular: Rate/Rhythm: regular rate and regular rhythm Gastrointestinal (Abdomen): Abdomen is rotund with mild distention but overall soft and nonrigid. The patient did have pain with palpation greatest in the right upper quadrant. The patient also was noted to have a bulge in the midline of his abdomen above the umbilicus concerning for diastases recti Musculoskeletal: No calf tenderness Skin: no jaundice Neurologic: moves all extremities Psychiatric: A+Ox3, euthymic affect Results & Data Vital Signs (Past 12 Hours) Vital Signs Temp Pulse Pulse Resp BP BP Pulse Ox 10/18/23 01:00 140/81 10/17/23 22:50 76 18 134/72 98 10/17/23 22:06 61 10/17/23 20:58 36.5 C 66 16 140/84 95 O2 Del Method 10/18/23 01:00 10/17/23 22:50 Room Air 10/17/23 22:06 10/17/23 20:58 Room Air PG Care Time/CCT Total # of Minutes Spent Total Time Spent with Patient: Total time spent is greater than 50% in coordination of care (as documented) at patient's floor/unit and/or counseling patient: Coding Level of Care Code 91586 IN/OBS CONSULT LVL 5,80M Diagnoses Biliary colic K80.50
[2023-10-18] MEDS: PIPERACILLIN/TAZOBACTAM 4.5 GM/100 ML BAG IV ONE (03:15)
--- NOTE | 2023-10-18 04:36 | Ultrasound Report ---
Exam(s): US GALLBLADDER EXAM: US Abdomen Limited, Gallbladder CLINICAL HISTORY: Reason for exam: ruq pain, ? GB. TECHNIQUE: Real-time ultrasound of the right upper quadrant with image documentation. COMPARISON: No relevant prior studies available. FINDINGS: Gallbladder: There is a 1.1 cm gallstone noted within the gallbladder neck. The gallbladder wall measured 5 mm in thickness. There is some pericholecystic fluid.. Common bile duct: Unremarkable as visualized. No stones. The common bile duct measured 4 mm.. Pancreas: The pancreas was not visualized due to overlying bowel gas. Liver: The liver is of increased echogenicity. There is an area of decreased attenuation in the liver adjacent to the gallbladder. Right kidney: No evidence of calculi or hydronephrosis. IMPRESSION: There is a 1.1 cm gallstone noted in the gallbladder neck. There is thickening of the gallbladder wall with pericholecystic fluid. The liver is of increased echogenicity which may be due to fatty infiltration and/or hepatocellular disease. A hypoechoic area noted adjacent to the gallbladder may represent a area of focal fatty sparing. Cannot exclude a focal lesion. Electronically signed by: Adriel Smith MD 10/18/23 04:35 AM
--- NOTE | 2023-10-18 05:44 | History & Physical Report ---
Date of Service October 18, 2023 Assessment & Plan (1) Biliary colic: Plan: 58-year-old male with past medical history significant for type 2 diabetes currently not taking any medications, hyperlipidemia, history of prostate cancer, history of back surgery and chronic back pain and ambulating with a cane comes because of abdominal pain going on for last 2 weeks on and off associate with food intake. Pain is located in the upper abdominal region and radiating all over the abdomen. Associated with nausea and vomitings. Constipated. Stools are somewhat dark in color. Denies any fevers. Has some pain in the ribs. No shortness of breath. Currently no headache. No dizziness. Vision is okay. No runny nose or sore throat or cough. Not eating much since last few days. Hemodynamics are okay. Biliary colic /cholecystitis N.p.o., IV fluids, IV antiemetics as needed IV Dilaudid as needed IV Zosyn Surgery consulted Close monitor Diabetes Not taking medications Will place on insulin sliding scale Monitor blood sugars Will check HbA1c levels Bradycardia Monitor in med/telemetry Dark stools hb stable margo follow stool hemeoccult. hx of prostrate cancer DVT prophylaxis SCDs Disposition Med/telemetry Full code. History of Present Illness Chief Complaint: Abdominal pain Primary Care Provider: Ender Sidhu MD 58-year-old male with past medical history significant for type 2 diabetes currently not taking any medications, hyperlipidemia, history of prostate cancer, history of back surgery and chronic back pain and ambulating with a cane comes because of abdominal pain going on for last 2 weeks on and off associate with food intake. Pain is located in the upper abdominal region and radiating all over the abdomen. Associated with nausea and vomitings. Constipated. Stools are somewhat dark in color. Denies any fevers. Has some pain in the ribs. No shortness of breath. Currently no headache. No dizziness. Vision is okay. No runny nose or sore throat or cough. Not eating much since last few days. Hemodynamics are okay. Past medical history. As mentioned above Past surgical history. Radical prostatectomy. Spinal fusion surgery. Social history. Former smoker. Current use of smokeless tobacco. Alcohol 2 beers most days as per epic. Family history. No family history on file Allergies Allergy/AdvReac Type Severity Reaction Status Date / Time No Known Allergies Allergy Verified 10/17/23 23:18 Home Medications Medication Instructions Recorded Confirmed Type acetaminophen 500 mg tablet 1,000 mg PO DIRECTED PRN Pain 06/08/22 10/17/23 History ibuprofen 200 mg tablet 400 mg PO DIRECTED PRN Pain 06/08/22 10/17/23 History Past Med/Surg History Problem List Abdominal pain, acute (Acute) Biliary colic (Acute) Alcohol use Diabetes mellitus, type II S/P spinal surgery Neurogenic claudication due to lumbar spinal stenosis Carpal tunnel syndrome, left Prostate CA (Chronic) pathology 03/16/19 > surgical intervention Medical History Elevated glucose Per patient, PCP had noted the elevated glucoses in the past were all in setting of recent steroid use for back pain (per patient, has had multiple recent steroid injections/use through Dr. Rick for back pain). PCP had attempted insulin/antiglycemics but resulted in significantly low glucoses/co mplications so patient just being diet managed at this time Chronic back pain Obesity Surgical History S/P epidural steroid injection caudal epidural steroid injection x2 03/2022 Dr Rick Nausea and vomiting after administration of anesthetic agent History of prostatectomy History of appendectomy History of surgery on left wrist multiple History of back surgery 1988 fusion lumbar Family History Father , age 64 of gangrene from diabetes Diabetes Mother , age 67 Lung cancer long time smoker Brother , age 64 Diabetes Sister , age 59 Lung cancer heavy smoker Son No problems noted. Son No problems noted. Other Heart disease No family history of adverse response to anesthesia Social History Smoking Status: Current every day smoker Tobacco Type: Cigarettes and Smokeless Tobacco (Dip or Chew) Age Started Using Tobacco: 18; Age Quit Using Tobacco: 50; packs per day: 1; Cigarettes Per Day: 1 ppd previously, now only occ cig; Second Hand Exposure: Yes ( smokes); Do You Dip or Chew Tobacco: Yes (1 can/2 days); Hx Alcohol Use: Yes Alcohol type: beer Alcohol Intake Frequency: 4 or More x per/Week Alcohol Intake Frequency Comment: 2 beers most nights Hx Substance Use: No Preferred Language: Egyptian Communication Ability: Effective Visual Impairment: No Limitations Hearing Ability: Normal Skilled Nursing Case Manager Required: No Beliefs That Will Affect Care: None marital status: Current Living Situation: Family current occupational status: employed 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 ENT- oropharynx clear Neck- supple, no JVD. Lungs- clear to auscultation no wheezing or crackles. Heart- regular rhythm; no murmur, no gallop. Abdomen- normal bowel sounds, soft, tenderness in epigastric and ruq region, no distension Extremities- no pretibial edema, no erythema seen Neuro- alert, oriented PERRL, no facial palsy; no dysarthria; moves extremities Results & Data Results & Data Vital Signs (Past 12 Hours) Vital Signs Temp Pulse Pulse Resp BP BP Pulse Ox 10/18/23 03:00 69 18 148/89 H 97 10/18/23 01:00 140/81 10/17/23 22:50 76 18 134/72 98 10/17/23 22:06 61 10/17/23 20:58 36.5 C 66 16 140/84 95 O2 Del Method 10/18/23 03:00 Room Air 10/18/23 01:00 10/17/23 22:50 Room Air 10/17/23 22:06 10/17/23 20:58 Room Air Diagnostic Findings Laboratory Results WBC 11.96 K/ul (4.8-10.8) H 10/17/23 22:46 RBC 5.25 M/uL (4.70-6.10) 10/17/23 22:46 Hgb 15.6 g/dl (14.0-18.0) 10/17/23 22:46 Hct 44.9 % (42.0-52.0) 10/17/23 22:46 MCV 85.5 fL (80.0-100.0) 10/17/23 22:46 MCH 29.7 pg (25.0-34.0) 10/17/23 22:46 MCHC 34.7 g/dL (32.0-36.0) 10/17/23 22:46 RDW Std Deviation 38.6 fL (36.4-46.3) 10/17/23 22:46 RDW Coeff of Tung 12.5 % (11.5-14.5) 10/17/23 22:46 Plt Count 196 K/uL (130-400) 10/17/23 22:46 MPV 9.0 fL (9.4-12.4) L 10/17/23 22:46 Immature Gran % (Auto) 0.4 % 10/17/23 22:46 Neut % (Auto) 77.1 % 10/17/23 22:46 Lymph % (Auto) 15.6 % 10/17/23 22:46 Mcintosh % (Auto) 5.9 % 10/17/23 22:46 Eos % (Auto) 0.5 % 10/17/23 22:46 Baso % (Auto) 0.5 % 10/17/23 22:46 Neut # (Auto) 9.22 K/uL (1.40-6.50) H 10/17/23 22:46 Lymph # (Auto) 1.86 K/uL (1.20-3.40) 10/17/23 22:46 Mcintosh # (Auto) 0.71 K/uL (0.11-0.59) H 10/17/23 22:46 Eos # (Auto) 0.06 K/uL (0.00-0.50) 10/17/23 22:46 Baso # (Auto) 0.06 K/uL (0.00-0.20) 10/17/23 22:46 Immature Gran # (Auto) 0.05 K/uL (0.01-0.20) 10/17/23 22:46 Absolute Nucleated RBC Cancelled 10/17/23 21:13 Nucleated RBC % (auto) Cancelled 10/17/23 21:13 Neutrophils % (Manual) Cancelled 10/17/23 21:13 Band Neutrophils % Cancelled 10/17/23 21:13 Lymphocytes % (Manual) Cancelled 10/17/23 21:13 Prolymphocyte % Cancelled 10/17/23 21:13 Reactive Lymphs % (Man) Cancelled 10/17/23 21:13 Monocytes % (Manual) Cancelled 10/17/23 21:13 Eosinophils % (Manual) Cancelled 10/17/23 21:13 Basophils % (Manual) Cancelled 10/17/23 21:13 Metamyelocytes % (Man) Cancelled 10/17/23 21:13 Myelocytes % (Man) Cancelled 10/17/23 21:13 Promyelocytes % (Man) Cancelled 10/17/23 21:13 Blast Cells % (Manual) Cancelled 10/17/23 21:13 Plasma Cell % (Manual) Cancelled 10/17/23 21:13 Other Cells % Cancelled 10/17/23 21:13 Nucleated RBC % Cancelled 10/17/23 21:13 Neutrophils # (Manual) Cancelled 10/17/23 21:13 Band Neutrophils # Cancelled 10/17/23 21:13 Total Absolute Neuts Cancelled 10/17/23 21:13 Lymphocytes # (Manual) Cancelled 10/17/23 21:13 Prolymphocyte # Cancelled 10/17/23 21:13 Reactive Lymphs # Cancelled 10/17/23 21:13 Total Abs Lymphocytes Cancelled 10/17/23 21:13 Monocytes # (Manual) Cancelled 10/17/23 21:13 Eosinophils # (Manual) Cancelled 10/17/23 21:13 Basophils # (Manual) Cancelled 10/17/23 21:13 Metamyelocytes # (Man) Cancelled 10/17/23 21:13 Myelocytes # (Manual) Cancelled 10/17/23 21:13 Promyelocytes # (Man) Cancelled 10/17/23 21:13 Blast Cells # (Man) Cancelled 10/17/23 21:13 Plasma Cell # (Manual) Cancelled 10/17/23 21:13 Other Cells # Cancelled 10/17/23 21:13 Nucleated RBCs # (Man) Cancelled 10/17/23 21:13 Hypersegmented Neuts Cancelled 10/17/23 21:13 Hyposegmented Neuts Cancelled 10/17/23 21:13 Hypogranular Neuts Cancelled 10/17/23 21:13 Large Granular Lymphs Cancelled 10/17/23 21:13 # Lrg Granular Lymphs Cancelled 10/17/23 21:13 Hairy Cells Cancelled 10/17/23 21:13 Smudge Cells Cancelled 10/17/23 21:13 Toxic Granulation Cancelled 10/17/23 21:13 Toxic Vacuolation Cancelled 10/17/23 21:13 Dohle Bodies Cancelled 10/17/23 21:13 Justina Rods Cancelled 10/17/23 21:13 Platelet Estimate Cancelled 10/17/23 21:13 Hypogranular Platelets Cancelled 10/17/23 21:13 Giant Platelets Cancelled 10/17/23 21:13 Platelet Satelliting Cancelled 10/17/23 21:13 RBC Morphology Cancelled 10/17/23 21:13 Polychromasia Cancelled 10/17/23 21:13 Hypochromasia Cancelled 10/17/23 21:13 Poikilocytosis Cancelled 10/17/23 21:13 Basophilic Stippling Cancelled 10/17/23 21:13 Anisocytosis Cancelled 10/17/23 21:13 Microcytosis Cancelled 10/17/23 21:13 Macrocytosis Cancelled 10/17/23 21:13 Spherocytes Cancelled 10/17/23 21:13 Pappenheimer Bodies Cancelled 10/17/23 21:13 Sickle Cells Cancelled 10/17/23 21:13 Target Cells Cancelled 10/17/23 21:13 Tear Drop Cells Cancelled 10/17/23 21:13 Ovalocytes Cancelled 10/17/23 21:13 Stomatocytes Cancelled 10/17/23 21:13 Lemon-Pickering Bodies Cancelled 10/17/23 21:13 Echinocytes Cancelled 10/17/23 21:13 Acanthocytes (Spur) Cancelled 10/17/23 21:13 Rouleaux Cancelled 10/17/23 21:13 RBC Agglutinates Cancelled 10/17/23 21:13 Schistocytes Cancelled 10/17/23 21:13 Sezary Cell Cancelled 10/17/23 21:13 Sodium 135 mmol/L (136-145) L 10/17/23 21:13 Potassium 3.6 mmol/L (3.5-5.1) 10/17/23 22:46 Chloride 104 mmol/L (98-107) 10/17/23 21:13 Carbon Dioxide 21 mmol/L (21-32) 10/17/23 21:13 Anion Gap 10 (3-11) 10/17/23 21:13 BUN 10 mg/dl (6-23) 10/17/23 21:13 Creatinine 0.76 mg/dl (0.6-1.4) 10/17/23 21:13 Est Cr Clr Drug Dosing 132.0 ml/min 10/17/23 21:13 Est GFR ( Amer) 116.6 ml/min 10/17/23 21:13 Est GFR (Non-Af Amer) 100.6 ml/min 10/17/23 21:13 BUN/Creatinine Ratio 13.2 (10-20) 10/17/23 21:13 Glucose 219 mg/dl (70-99(Fasting)) H 10/17/23 21:13 Calcium 9.4 mg/dl (8.6-10.3) 10/17/23 21:13 Total Bilirubin 0.7 mg/dl (0.2-1.0) 10/17/23 21:13 AST 11 U/L (13-39) L 10/17/23 22:46 ALT 14 U/L (7-52) 10/17/23 21:13 Alkaline Phosphatase 88 U/L (34-104) 10/17/23 21:13 Total Protein 7.6 gm/dl (6.0-8.3) 10/17/23 21:13 Albumin 4.8 gm/dl (3.4-5.0) 10/17/23 21:13 Globulin 2.8 gm/dl (2.5-4.0) 10/17/23 21:13 Albumin/Globulin Ratio 1.7 (0.9-2) 10/17/23 21:13 Lipase 9 U/L (11-82) L 10/17/23 21:13 Urine Color Yellow 10/18/23 00:12 Urine Appearance Clear (Clear) 10/18/23 00:12 Urine pH 5.5 (4.5-7.5) 10/18/23 00:12 Ur Specific [place] > 1.045 (1.000-1.030) H 10/18/23 00:12 Urine Protein Trace (Negative) H 10/18/23 00:12 Urine Glucose (UA) 1+ (Negative) H 10/18/23 00:12 Urine Ketones 2+ (Negative) H 10/18/23 00:12 Urine Blood Negative (Negative) 10/18/23 00:12 Urine Nitrite Negative (Negative) 10/18/23 00:12 Urine Bilirubin Negative (Negative) 10/18/23 00:12 Urine Urobilinogen Negative (Negative) 10/18/23 00:12 Ur Leukocyte Esterase Negative (Negative) 10/18/23 00:12 Urine WBC (Auto) 0-5 /hpf (0-5) 10/18/23 00:12 Urine RBC (Auto) 0-2 /hpf (0-2) 10/18/23 00:12 U Hyaline Cast (Auto) 0-2 /lpf (0-2) 10/18/23 00:12 U Epithel Cells (Auto) 0-2 /hpf (0-2) 10/18/23 00:12 Urine Bacteria (Auto) None Seen (None Seen) 10/18/23 00:12 Blood Parasites ID Cancelled 10/17/23 21:13 Impressions Abdomen/Pelvis CT 10/17/23 22:06 Exam(s): CT ABDOMEN + PELVIS With Contrast IV Amt: 93 ml optiray 320 EXAM: CT Abdomen and Pelvis With Intravenous Contrast CLINICAL HISTORY: Reason for exam: mid abd pain. TECHNIQUE: Axial computed tomography images of the abdomen and pelvis with intravenous contrast. CTDI is 27.04 mGy and DLP is 1400.35 mGy-cm. Automated exposure control was utilized for the study. A dose lowering technique was utilized adhering to the principles of ALARA. CONTRAST: Patient received 93 ml optiray 320 of IV contrast COMPARISON: No relevant prior studies available. FINDINGS: Lung bases: Unremarkable. No mass. No consolidation. ABDOMEN: Liver: Unremarkable. No mass. Gallbladder and bile ducts: Cholelithiasis. Hepatic steatosis. No ductal dilation. Pancreas: Unremarkable. No mass. No ductal dilation. Spleen: Unremarkable. No splenomegaly. Adrenals: Unremarkable. No mass. Kidneys and ureters: Unremarkable. No solid mass. No hydronephrosis. Stomach and bowel: Diverticulosis, without acute diverticulitis. No small bowel obstruction. No free intraperitoneal air. PELVIS: Appendix: No findings to suggest acute appendicitis. Bladder: Unremarkable. No mass. Reproductive: Unremarkable as visualized. ABDOMEN and PELVIS: Intraperitoneal space: Unremarkable. No free air. No significant fluid collection. Bones/joints: Degenerative changes of the spine. Posterior fusion at L4-S1. No acute fracture. No dislocation. Soft tissues: Unremarkable. Vasculature: Atherosclerotic changes of the aorta. No abdominal aortic aneurysm. Lymph nodes: Unremarkable. No enlarged lymph nodes. IMPRESSION: 1. Cholelithiasis. Hepatic steatosis. 2. Diverticulosis, without acute diverticulitis. No small bowel obstruction. No free intraperitoneal air. Electronically signed by: Everton Wan MD 10/18/23 00:58 AM Gallbladder Ultrasound 10/18/23 01:04 Exam(s): US GALLBLADDER EXAM: US Abdomen Limited, Gallbladder CLINICAL HISTORY: Reason for exam: ruq pain, ? GB. TECHNIQUE: Real-time ultrasound of the right upper quadrant with image documentation. COMPARISON: No relevant prior studies available. FINDINGS: Gallbladder: There is a 1.1 cm gallstone noted within the gallbladder neck. The gallbladder wall measured 5 mm in thickness. There is some pericholecystic fluid.. Common bile duct: Unremarkable as visualized. No stones. The common bile duct measured 4 mm.. Pancreas: The pancreas was not visualized due to overlying bowel gas. Liver: The liver is of increased echogenicity. There is an area of decreased attenuation in the liver adjacent to the gallbladder. Right kidney: No evidence of calculi or hydronephrosis. IMPRESSION: There is a 1.1 cm gallstone noted in the gallbladder neck. There is thickening of the gallbladder wall with pericholecystic fluid. The liver is of increased echogenicity which may be due to fatty infiltration and/or hepatocellular disease. A hypoechoic area noted adjacent to the gallbladder may represent a area of focal fatty sparing. Cannot exclude a focal lesion. Electronically signed by: Adriel Smith MD 10/18/23 04:35 AM ECG Additional Comments: ECG. Sinus bradycardia rate of 47. No acute ST changes seen. Code Status & VTE Plan VTE Prophylaxis Plan VTE Prophylaxis will be ordered: Yes
[2023-10-18] MEDS ORDERED: GLUCAGON FOR INJ 1 MG VIAL SQ PRN (06:24)
[2023-10-18] MEDS ORDERED: HYDROmorphone INJ 0.5 MG/0.5 ML SYR IV PRN ×2 (06:24)
[2023-10-18] MEDS ORDERED: ACETAMINOPHEN 325 MG TAB PO PRN (06:24)
[2023-10-18] MEDS ORDERED: DEXTROSE 50% 50 ML SYRINGE IV PRN (06:24)
[2023-10-18] MEDS ORDERED: ONDANSETRON INJ 2 MG/ML 2 ML VIAL IV PRN (06:24)
[2023-10-18] MEDS ORDERED: GLUCOSE 40% GEL 15 GM TUBE PO PRN (06:24)
[2023-10-18] MEDS ORDERED: CARBOHYDRATES FOR HYPOGLYCEMIA PO PRN (06:24)
[2023-10-18] MEDS ORDERED: GLUCOSE 10 TAB/TUBE PO PRN (06:24)
[2023-10-18 07:03] LABS: Basophils # (auto) 0.06 K/uL (0.00-0.20); Basophils % (auto) 0.7 %; Eosinophils # (auto) 0.16 K/uL (0.00-0.50); Eosinophils % (auto) 1.8 %; Hematocrit (blood only) 42.3 % (42.0-52.0); Hemoglobin 14.6 g/dl (14.0-18.0); Immature Granulocytes # (auto) 0.04 K/uL (0.01-0.20); Immature Granulocytes % (auto) 0.4 %; Lymphocytes # (auto) 2.85 K/uL (1.20-3.40); Lymphocytes % (auto) 31.9 %; Mean Corpuscular Hemoglobin 29.7 pg (25.0-34.0); Mean Corpuscular Hgb Conc 34.5 g/dL (32.0-36.0); Mean Corpuscular Volume 86.2 fL (80.0-100.0); Mean Platelet Volume 9.2 fL (9.4-12.4); Monocytes # (auto) 0.68 K/uL (0.11-0.59); Monocytes % (auto) 7.6 %; Neutrophils # (auto) 5.15 K/uL (1.40-6.50); Neutrophils % (auto) 57.6 %; Platelet Count 183 K/uL (130-400); RDW Coefficient of Variation 12.7 % (11.5-14.5); RDW Standard Deviation 39.6 fL (36.4-46.3); Red Blood Count 4.91 M/uL (4.70-6.10); White Blood Count 8.94 K/ul (4.8-10.8)
[2023-10-18 07:16] LABS: Partial Thromboplastin Time 27 Seconds (21-31); Prothrombin Time 10.8 Seconds (9.0-12.0)
--- NOTE | 2023-10-18 07:18 | XRay Report ---
XR chest 1V portable HISTORY: pre-op COMPARISON: Chest 06/07/2022. FINDINGS: The lungs are clear. Cardiac silhouette is normal in size. No pleural effusions. No pneumot horax. IMPRESSION: No acute process. ACT 112: Negative or not required by law. Electronically signed by: Pastor Ortiz M.D. 10/18/2023 7:17 AM
[2023-10-18] MEDS: LACTATED RINGER'S 1,000 ML IV SCH (07:24)
[2023-10-18 07:28] LABS: Albumin Globulin Ratio 1.8 (0.9-2); Albumin Level 3.9 gm/dl (3.4-5.0); BUN Creatinine Ratio 10.2 (10-20); Bilirubin,Total 0.8 mg/dl (0.2-1.0); Calcium 8.5 mg/dl (8.6-10.3); Creatinine Clr Calc Pharmacy 102.4 ml/min; Est GFR (African American) 98.1 ml/min; Est GFR (Non-African American) 84.6 ml/min; Globulin 2.2 gm/dl (2.5-4.0); Potassium 3.6 mmol/L (3.5-5.1); Total Protein 6.1 gm/dl (6.0-8.3)
[2023-10-18] MEDS: PIPERACILLIN/TAZOBACTAM 4.5 GM/100 ML BAG IV SCH (09:11)
[2023-10-18] MEDS: INSULIN ASPART PER UNIT CHARGE SC SCH ×2 (09:11→17:19)
--- NOTE | 2023-10-18 10:41 | Hospitalist Progress Note ---
Date of Service October 18, 2023 Assessment & Plan (1) Biliary colic: Plan: 58-year-old male with past medical history significant for type 2 diabetes currently not taking any medications, hyperlipidemia, history of prostate cancer, history of back surgery and chronic back pain and ambulating with a cane comes because of abdominal pain going on for last 2 weeks on and off associate with food intake. Pain is located in the upper abdominal region and radiating all over the abdomen. Acute cholecystitis Patient presents with right upper quadrant pain Gallbladder ultrasound shows 1.1 cm gallbladder stone in gallbladder neck with t hickening of gallbladder wall with pericholecystic fluids Status post laparoscopic cholecystectomy on 10/08/2023 Clear liquid diet Continue IV Zosyn Pain control Type 2 Diabetes Not taking medications; Was prescribed metformin in May 2022. Seems that he is not taking it. Sliding scale insulin while inpatient. 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 Please note the above document was generated using voice recognition software. It may contain grammatical, syntax or spelling errors. Any formal questions or concerns about the content, text or information contained within the body of this dictation should be directly addressed to the provider for clarification Admission and Anticipated Discharge Date Admission Date: October 18, 2023 Subjective Patient seen and examined at bedside. Comfortable; not in distress. Denies fever, chills, chest pain, shortness of breath, abdominal pain or urinary symptoms. No significant overnight events Review of Systems Review of Systems: All systems reviewed & are unremarkable except as noted in Subjective Physical Exam Physical Exam: General- Not in distress Head- atraumatic Eyes- PERRL. ENT- oropharynx clear Neck- supple, no JVD. Lungs- clear to auscultation no wheezing or crackles. Heart- regular rhythm; no murmur, no gallop. Abdomen- normal bowel sounds, soft, tenderness in epigastric and ruq region, no distension Extremities- no pretibial edema, no erythema seen Neuro- alert, oriented PERRL, no facial palsy; no dysarthria; moves extremities Results & Data Results & Data Vital Signs (Past 12 Hours) Vital Signs Pulse Resp BP Pulse Ox O2 Del Method 10/18/23 07:29 52 L 18 136/97 97 Room Air 10/18/23 03:00 69 18 148/89 H 97 Room Air 10/18/23 01:00 140/81 10/17/23 22:50 76 18 134/72 98 Room Air
--- NOTE | 2023-10-18 11:32 | History & Physical Bridge Note ---
Date of Service October 18, 2023 History & Physical Bridge Note I have examined the patient, reviewed the History & Physical and in the interval since the performance of the History & Physical I have noted the following changes of clinical significance: no changes noted
[2023-10-18] MEDS ORDERED: ROCURONIUM BROMIDE 10 MG/ML 5 ML VIAL IV ONE (11:37)
[2023-10-18] MEDS ORDERED: LIDOCAINE 2% 2 ML VIAL/AMP(20MG/ML) INFIL ONE (11:37)
[2023-10-18] MEDS ORDERED: fentaNYL citrate PF 100 MCG/2 ML VIAL ONE ×2 (11:37→12:29)
[2023-10-18] MEDS ORDERED: DEXAMETHASONE SOD INJ 4 MG/ML VIAL ONE (11:37)
[2023-10-18] MEDS ORDERED: PROPOFOL IV EMULSION 10 MG/ML 20 ML VIAL IV ONE (11:37)
[2023-10-18] MEDS ORDERED: MIDAZOLAM HCL 1 MG/ML 2ML VIAL ONE (11:37)
[2023-10-18] MEDS ORDERED: ONDANSETRON INJ 2 MG/ML 2 ML VIAL ONE (11:37)
--- NOTE | 2023-10-18 11:43 | Anesthesiology Consultation ---
Date of Service October 18, 2023 Assessment & Plan Chart Review Chart Review: Acceptable Risk for Surgery and Patient NOT seen in Pre Admission Testing Consults Requested none ASA ASA2 Proposed Anesthesia Anesthesia Type: General Risk / Benefits Reviewed With: PT / POA / Parent / Guardian, Accepts Plan and Informed Consent Obtained History Surgery Operation Date: 10/18/23 08:20 Proposed Procedures p Laparoscopic Cholecystectomy, Possible Open - Yomi Pagan DO, FACS Height/Weight Height: 5 ft 11 in Weight: 107.3 kg Allergies Allergy/AdvReac Type Severity Reaction Status Date / Time No Known Allergies Allergy Verified 10/17/23 23:18 Medications Home Medications Medication Instructions Recorded Confirmed Last Taken acetaminophen 500 mg tablet 1,000 mg PO DIRECTED PRN Pain 06/08/22 10/17/23 10/17/23 18:00 ibuprofen 200 mg tablet 400 mg PO DIRECTED PRN Pain 06/08/22 10/17/23 10/17/23 18:00 oxycodone 5 mg tablet 5 - 10 mg (1 - 2 x 5 mg) PO Q6H 10/18/23 Unknown PRN pain #14 tabs Active Medications Generic Name Dose Route Start Last Admin Trade Name Freq PRN Reason Stop Dose Admin Lactated Ringer's 1,000 mls @ 125 mls/hr 10/18/23 06:24 10/18/23 07:24 Lr IV 11/17/23 06:23 125 mls/hr .Q8H TRACIE Administration Piperacillin Sod/Tazobactam Sod 4.5 gm in 100 mls @ 25 mls/hr 10/18/23 08:30 10/18/23 09:11 Zosyn IV 10/28/23 08:29 25 mls/hr Q8H TRACIE Administration Insulin Aspart 0 units 10/18/23 06:24 10/18/23 09:11 Insulin Aspart Per Unit Charge SC 11/17/23 06:23 2 units Q6H TRACIE Administration NPO Date Last Intake of Fluids: 10/17/23 Time Last Intake of Fluids: 20:30 Date Last Intake of Solids: 10/16/23 Time Last Intake of Solids: 19:00 Past Medical History Medical History Elevated glucose Per patient, PCP had noted the elevated glucoses in the past were all in setting of recent steroid use for back pain (per patient, has had multiple recent steroid injections/use through Dr. Rick for back pain). PCP had attempted insulin/antiglycemics but resulted in significantly low glucoses/complications so patient just being diet managed at this time Chronic back pain Obesity Exercise / Class Metabolic Activity II 4-5 Yardwork/Stairs/Walk up hill Past Family History Family History Father , age 64 of gangrene from diabetes Diabetes Mother , age 67 Lung cancer long time smoker Brother , age 64 Diabetes Sister , age 59 Lung cancer heavy smoker Son No problems noted. Son No problems noted. Other Heart disease No family history of adverse response to anesthesia Past Surgical History Surgical History S/P epidural steroid injection caudal epidural steroid injection x2 03/2022 Dr Rick Nausea and vomiting after administration of anesthetic agent History of prostatectomy History of appendectomy History of surgery on left wrist multiple History of back surgery 1989 fusion lumbar Past Anesthesia History No Hx of Anesthesia Complications and No Family Hx of Anesthesia Complications History of PONV No Hx of PONV and No Hx of Motion Sickness Social History Smoking Status: Current every day smoker tobacco type: smokeless tobacco Smoking cigarettes per day: 1 ppd previously, now only occ cig Do You Dip or Chew Tobacco: Yes (1 can/2 days) Hx Alcohol Use: Yes Alcohol type: beer alcohol intake frequency: a few times a week Hx Substance Use: No substance use type: does not use Review of Systems ROS Unobtainable: All systems reviewed & are unremarkable except as noted in HPI & below Physical Exam Vital Signs Last Vital Signs Temp 36.5 C 10/18/23 10:48 Pulse 49 L 10/18/23 10:48 Resp 20 10/18/23 10:48 BP 140/77 10/18/23 10:48 Pulse Ox 97 10/18/23 10:48 O2 Del Method Room Air 10/18/23 10:48 ENMT Mouth: no TMJ abnormality Thyromental Distance: > or= 3.5 Finger Breadths Mallampati Class: II Neck normal visual inspection and trachea midline; neck extension not limited Respiratory normal respiratory effort Auscultation: lungs clear to auscultation bilaterally Cardiovascular Rate/Rhythm: regular rate and regular rhythm Heart Sounds: no murmur Musculoskeletal Spine: normal cervical ROM Extremities: full ROM of extremities Neurologic moves all extremities Psychiatric Orientation: alert and oriented x 3 Testing Laboratory Results 10/18/23 06:16 10/18/23 06:16 PT 10.8 Seconds (9.0-12.0) 10/18/23 06:16 INR 1.0 (0.9-1.1) 10/18/23 06:16 APTT 27 Seconds (21-31) 10/18/23 06:16 Urine Color Yellow 10/18/23 00:12 Urine Appearance Clear (Clear) 10/18/23 00:12 Urine pH 5.5 (4.5-7.5) 10/18/23 00:12 Ur Specific [place] > 1.045 (1.000-1.030) H 10/18/23 00:12 Urine Protein Trace (Negative) H 10/18/23 00:12 Urine Glucose (UA) 1+ (Negative) H 10/18/23 00:12 Urine Ketones 2+ (Negative) H 10/18/23 00:12 Urine Nitrite Negative (Negative) 10/18/23 00:12 Ur Leukocyte Esterase Negative (Negative) 10/18/23 00:12 Urine WBC (Auto) 0-5 /hpf (0-5) 10/18/23 00:12 Urine RBC (Auto) 0-2 /hpf (0-2) 10/18/23 00:12 U Hyaline Cast (Auto) 0-2 /lpf (0-2) 10/18/23 00:12 U Epithel Cells (Auto) 0-2 /hpf (0-2) 10/18/23 00:12 Urine Bacteria (Auto) None Seen (None Seen) 10/18/23 00:12 10/18/23 08:54 POC Glucose 193 H Electrocardiogram Date: 10/18/23 Findings: + SB @ (47)
[2023-10-18] MEDS ORDERED: HYDROmorphone INJ 1 MG/ML SYRINGE IV PRN (11:47)
[2023-10-18] MEDS ORDERED: ePHEDrine sulfate 50 MG/ML AMP IV PRN (11:47)
[2023-10-18] MEDS ORDERED: ATROPINE SULFATE 0.1 MG/ML 10ML SYR IV PRN (11:47)
[2023-10-18] MEDS ORDERED: fentaNYL citrate PF 100 MCG/2 ML VIAL IV PRN (11:47)
[2023-10-18] MEDS ORDERED: ACETAMINOPHEN 1000 MG/100 ML IV IV ONE (12:07)
[2023-10-18] MEDS ORDERED: KETOROLAC 30 MG/ML VIAL ONE (12:57)
[2023-10-18] MEDS ORDERED: SUGAMMADEX SODIUM 200 MG/2 ML VIAL IV ONE (12:57)
[2023-10-18] MEDS: BUPIVACAINE 0.5 % 5 MG/1 ML MPF 30ML VIAL ONE (13:00)
--- NOTE | 2023-10-18 13:04 | Operative Report ---
PG Post Operative Report Pre & Post Diagnosis Operation Date: 10/18/23 08:20 Pre-Op Diagnosis: Biliary colic Post-Op Diagnosis: Acute on chronic cholecystitis I identified the patient and participated in the time-out.: Yes Procedure Operation Date: 10/18/23 08:20 Actual Procedures p Laparoscopic Cholecystectomy(Not Applicable) - Yomi Pagan DO, NANCY Surgeon Yomi Pagan DO, FACS [employer] Clerk Barbara Morton Estimated Blood Loss 10 Findings Consistent with Post-Op Diagnosis Sclerotic and chronically inflamed gallbladder with acute inflammation. Critical view of safety obtained, cystic duct and artery doubly clipped and divided. Specimens Gallbladder Anesthesia Type General Complications none Disposition Accompanied Patient To Recovery: No Disposition: Recovery Room Indications 58-year-old male presented with several months of right upper quadrant postprandial abdominal pain and imaging that showed cholelithiasis with cholecystitis, plan for laparoscopic cholecystectomy. The risks of the procedure were discussed, all questions were answered, and the patient agreed to proceed with surgery as planned. Description of Procedure The patient was properly identified, consented, and taken to the operating room where he was placed in the supine position. General endotracheal anesthesia was induced. SCDs and a safety belt were placed. Preoperative antibiotics were administered. The patient's abdomen was prepped and draped in the standard sterile fashion. A surgical timeout was performed and all parties were in agreement that this was the correct patient and procedure to be performed and we continued as planned. An incision was made superior and to the left of the umbilicus overlying the rectus muscle and the Veress needle was inserted. Saline drop test confirmed entry into the peritoneum. The abdomen was insufflated with carbon dioxide which the patient tolerated without incident. The abdomen was then entered using the Optiview technique and a 5 mm trocar. The laparoscope was inserted and no damage from initial trocar or Veress needle placement was noted, no gross abnormalities were noted within the 4 quadrants of the abdomen. An 11 mm port was placed in the subxiphoid position and two 5 mm ports were then placed in the right subcostal position. The patient was placed in reverse Trendelenburg position and rotated towards the left. The gallbladder appeared small and sclerotic with evidence of moderate to severe acute on chronic cholecystitis. There was a large stone filling the majority of the gallbladder which made it difficult for retraction. The dome of the gallbladder was retracted towards the left upper quadrant and the infundibulum was retracted toward the right lower quadrant revealing Calot's triangle. Peritoneal attachments were taken down with electrocautery and blunt dissection. The cystic duct and artery were circumferentially dissected. A window of safety was obtained showing the cystic duct entering the gallbladder with no aberrant structures noted. The cystic duct and artery were doubly clipped and divided. The gallbladder was then lifted off the gallbladder fossa with electrocautery. The gallbladder was placed in an Endo Catch bag and removed through the subxiphoid port site. The right upper quadrant was irrigated and hemostasis was found to be good. 5 mm trochars were removed under direct visualization and the abdomen was allowed to collapse. The subxiphoid port site fascia was closed with a [id number] 0 Vicryl suture utilizing a Everardo-Syl device. The wound was irrigated, and the skin of all ports was closed with 4-0 Monocryl subcuticular sutures. Dermabond was placed over the wounds. The patient was extubated in the operating room and taken to the PACU where he recovered without apparent incident. All sponge, instrument and needle counts were correct at the conclusion of the procedure. The patient tolerated the procedure well. The nurse practitioner was present and scrubbed for the entirety of the case and was essential in positioning the patient, prepping and draping, retraction and exposure, driving the laparoscope, removal of the gallbladder, closure the incisions, and placement of the dressings. I attest to the content of the Intraoperative Record and any orders documented therein. Any exceptions are noted below.
[2023-10-18] MEDS: ONDANSETRON INJ 2 MG/ML 2 ML VIAL IV PRN (13:21)
--- NOTE | 2023-10-18 13:48 | Anesthesiology Progress Note ---
Date of Service October 18, 2023 Anesthesia Post Procedure Vital Signs Vital Signs: Temp Pulse Pulse Pulse Resp BP BP 10/18/23 13:40 60 16 10/18/23 13:30 66 12 10/18/23 13:20 62 15 10/18/23 13:14 36.2 C L 55 L 20 10/18/23 10:48 36.5 C 49 L 20 10/18/23 07:29 52 L 18 136/97 10/18/23 03:00 69 18 148/89 H 10/18/23 01:00 140/81 10/17/23 22:50 76 18 134/72 10/17/23 22:06 61 10/17/23 20:58 36.5 C 66 16 140/84 BP Pulse Ox O2 Del Method O2 Flow Rate 10/18/23 13:40 153/59 H 91 Room Air 10/18/23 13:30 112/80 95 Room Air 10/18/23 13:20 146/75 H 95 Room Air 10/18/23 13:14 139/84 97 Oxymask 5 10/18/23 10:48 140/77 97 Room Air 10/18/23 07:29 97 Room Air 10/18/23 03:00 97 Room Air 10/18/23 01:00 10/17/23 22:50 98 Room Air 10/17/23 22:06 10/17/23 20:58 95 Room Air Pain Intensity Upper Abdomen: Pain Intensity: 5 Transfer of Care Handoff Completed per policy Notes Mental Status: alert / awake / arousable Patient Amnestic to Procedure: Yes Nausea / Vomiting: adequately controlled Pain: adequately controlled Airway Patency, RR, SpO2: stable & adequate BP & HR: stable & adequate Hydration State: stable & adequate Anesthetic Complications: no major complications apparent
[2023-10-18] MEDS ORDERED: oxyCODONE HCL IR 5 MG TAB (IMMEDIATE RELEASE) PO PRN ×2 (14:26)
[2023-10-18] MEDS ORDERED: MoRPHine SULFATE 4 MG/ML 1 ML CARP\\VIAL IV PRN (14:26)
[2023-10-18] MEDS ORDERED: MoRPHine SULFATE 2 MG/ML CARP IV PRN (14:26)
[2023-10-18] MEDS ORDERED: Nursing to Pharmacy Communication SCH (14:45)
[2023-10-18] MEDS ORDERED: PIPERACILLIN/TAZOBACTAM 4.5 GM/100 ML BAG IV SCH (16:45)
[2023-10-18] MEDS: ACETAMINOPHEN 325 MG TAB PO PRN (20:33)
--- NOTE | 2023-10-18 22:06 | Electrocardiogram Report ---
Test Reason : Blood Pressure : */* mmHG Vent. Rate : 47 BPM Atrial Rate : 47 BPM P-R Int : 164 ms QRS Dur : 94 ms QT Int : 456 ms P-R-T Axes : 60 20 41 degrees QTcB Int : 403 ms Sinus bradycardia Otherwise normal ECG When compared with ECG of 07-Jun-2022 14:32, Vent. rate has decreased by 31 bpm Confirmed by Deep Barbosa ([id number]) on 10/18/2023 10:06:04 PM Referred By: REFERRED SELF Confirmed By: Deep Barbosa
[2023-10-18] MEDS: KETOROLAC TROMETHAMINE 15 MG/ML VIAL IV PRN (23:28)
[2023-10-19 06:00] LABS: Basophils # (auto) 0.07 K/uL (0.00-0.20); Basophils % (auto) 0.6 %; Eosinophils % (auto) 0.9 %; Hematocrit (blood only) 42.8 % (42.0-52.0); Hemoglobin 14.7 g/dl (14.0-18.0); Immature Granulocytes # (auto) 0.04 K/uL (0.01-0.20); Immature Granulocytes % (auto) 0.4 %; Lymphocytes # (auto) 1.91 K/uL (1.20-3.40); Lymphocytes % (auto) 17.1 %; Mean Corpuscular Hemoglobin 29.5 pg (25.0-34.0); Mean Corpuscular Hgb Conc 34.3 g/dL (32.0-36.0); Mean Corpuscular Volume 85.8 fL (80.0-100.0); Mean Platelet Volume 9.2 fL (9.4-12.4); Monocytes # (auto) 0.71 K/uL (0.11-0.59); Monocytes % (auto) 6.3 %; Neutrophils # (auto) 8.36 K/uL (1.40-6.50); Neutrophils % (auto) 74.7 %; Platelet Count 191 K/uL (130-400); RDW Coefficient of Variation 12.5 % (11.5-14.5); RDW Standard Deviation 38.8 fL (36.4-46.3); Red Blood Count 4.99 M/uL (4.70-6.10); White Blood Count 11.19 K/ul (4.8-10.8)
[2023-10-19 06:16] LABS: Albumin Level 4.1 gm/dl (3.4-5.0); BUN Creatinine Ratio 13.8 (10-20); Bilirubin Direct 0.2 mg/dl (0-0.2); Bilirubin,Total 0.9 mg/dl (0.2-1.0); Calcium 8.9 mg/dl (8.6-10.3); Creatinine Clr Calc Pharmacy 128.9 ml/min; Est GFR (African American) 114.1 ml/min; Est GFR (Non-African American) 98.5 ml/min; Potassium 3.7 mmol/L (3.5-5.1); Total Protein 6.5 gm/dl (6.0-8.3)
[2023-10-19 06:58] LABS: Estimated Average Glucose 275 mg/dl; Hemoglobin A1C 11.2 % (4.5-5.6)
[2023-10-19 07:46] VITALS: PULSE 57; O2SAT 96
--- NOTE | 2023-10-19 10:08 | Surgery Progress Note ---
Date of Service October 19, 2023 Assessment & Plan (1) Acute calculous cholecystitis: Plan: doing well discharge per medical team instructions in chart F/U w/Dr Pagan 2 weeks Admission and Anticipated Discharge Date Admission Date: October 18, 2023 Subjective pain controlled taking po ambulating no complaints Review of Systems Constitutional: no fever and no chills Respiratory: no cough and no dyspnea Cardiovascular: no chest pain Gastrointestinal: + abdominal pain; no nausea and no vomit ing Genitourinary: no dysuria Neurologic: no localized weakness Psychiatric: no behavioral changes Physical Exam Constitutional: WD/WN, vitals as above Respiratory: normal respiratory effort, lungs clear to auscultation Cardiovascular: RRR, no murmur, no edema Gastrointestinal (Abdomen): Inspection/Auscultation: abdomen normal to inspection and normal bowel sounds; abdomen not distended Percussion/Palpation: + abdomen tender and abdomen soft; no guarding and abdomen not rigid Results & Data Vital Signs (Past 12 Hours) Vital Signs Temp Pulse Pulse Pulse Resp BP Pulse Ox 10/19/23 07:46 36.7 C 57 L 16 110/69 96 10/19/23 07:39 10/19/23 07:16 60 10/19/23 04:04 36.3 C L 57 L 16 106/70 97 10/18/23 23:45 61 10/18/23 23:09 36.6 C 64 18 106/71 94 10/18/23 22:26 O2 Del Method 10/19/23 07:46 Room Air 10/19/23 07:39 Room Air 10/19/23 07:16 10/19/23 04:04 Room Air 10/18/23 23:45 10/18/23 23:09 Room Air 10/18/23 22:26 Room Air
[2023-10-19 11:24] VITALS: RESP 18; TEMP 97.9
--- NOTE | 2023-10-19 14:38 | Discharge Summary ---
Date of Service October 19, 2023 Admission HPI Per Admitting Provider 58-year-old male with past medical history significant for type 2 diabetes currently not taking any medications, hyperlipidemia, history of prostate cancer, history of back surgery and chronic back pain and ambulating with a cane comes because of abdominal pain going on for last 2 weeks on and off associate with food intake. Pain is located in the upper abdominal region and radiating all over the abdomen. Associated with nausea and vomitings. Constipated. Stools are somewhat dark in color. Denies any fevers. Has some pain in the ribs. No shortness of breath. Currently no headache. No dizziness. Vision is okay. No runny nose or sore throat or cough. Not eating much since last few days. Hemodynamics are okay. Past medical history. As mentioned above Past surgical history. Radical prostatectomy. Spinal fusion surgery. Social history. Former smoker. Current use of smokeless tobacco. Alcohol 2 beers most days as per epic. Family history. No family history on file Admission Exam Per Admitting Provider General- Not in distress Head- atraumatic Eyes- PERRL. ENT- oropharynx clear Neck- supple, no JVD. Lungs- clear to auscultation no wheezing or crackles. Heart- regular rhythm; no murmur, no gallop. Abdomen- normal bowel sounds, soft, tenderness in epigastric and ruq region, no distension Extremities- no pretibial edema, no erythema seen Neuro- alert, oriented PERRL, no facial palsy; no dysarthria; moves extremities Principal Diagnosis Acute cholecystitis status post laparoscopic cholecystectomy 10/18/2023 Discharge Exam General- Not in distress Head- atraumatic Eyes- PERRL. ENT- oropharynx clear Neck- supple, no JVD. Lungs- clear to auscultation no wheezing or crackles. Heart- regular rhythm; no murmur, no gallop. Abdomen- Dressing in place, clean dry and intact. Extremities- no pretibial edema, no erythema seen Neuro- alert, oriented PERRL, no facial palsy; no dysarthria; moves extremities Discharge Data Allergies Allergy/AdvReac Type Severity Reaction Status Date / Time No Known Allergies Allergy Verified 10/17/23 23:18 Consultations 10/18/23 02:42 ED Decision to Admit Stat 10/18/23 08:00 Consult General Surgery Routine Procedures Performed Operation Date: 10/18/23 08:20 Actual Procedures p Laparoscopic Cholecystectomy(Not Applicable) - Yomi Pagan DO, FACS Ordered Studies 10/17/23 22:06 CT Abd and Pelvis [CT abd pelvis IV con only] Stat 10/18/23 01:04 US gallbladder Stat Hospital Course (1) Biliary colic: 58-year-old male with past medical history significant for type 2 diabetes currently not taking any medications, hyperlipidemia, history of prostate cancer, history of back surgery and chronic back pain and ambulating with a cane comes because of abdominal pain going on for last 2 weeks on and off associate with food intake. Pain is located in the upper abdominal region and radiating all over the abdomen. Gallbladder ultrasound shows 1.1 cm gallbladder stone in gallbladder neck with thickening of gallbladder wall with pericholecystic fluids General surgery was consulted; patient underwent laparoscopic cholecystectomy on 10/18/2023 Perioperative and postoperative course was uncomplicated. Patient tolerated diet. Patient's pain was well-controlled. He was discharged home. Type 2 DM Patient has a history of type 2 diabetes mellitus for which he was prescribed metformin in May 2022. Patient has not been taking any medication and has not followed any physician. His HbA1c was 11. I discussed with him regarding starting medication including insulin. However, patient wanted to try oral medication initially and did not want insulin. I discussed regarding dietary measures and lifestyle changes. Patient verbalized understanding. I discussed with him regarding proper follow-up with primary care physician for long-term management. He was agreeable. Please note the above document was generated using voice recognition software. It may contain grammatical, syntax or spelling errors. Any formal questions or concerns about the content, text or information contained within the body of this dictation should be directly addressed to the provider for clarification Total Time Total Time Spent Total Time Spent (In Minutes): 35 Total Time Includes: Examination of the Patient, Discharge Planning, Medication Reconciliation, Communication With Other Providers and Other Discharge Plan Discharge Items Patient Disposition: Home - Self-Care Reason For Visit: BILARY COLIC/CHOLECYSTITIS, BRADYCARDIA Discharge Diagnosis: Cholelithiasis with acute cholecystitis Condition on Discharge: Good Activity: As commented below Activity Comment: No heavy lifting or strenuous activity for 2 weeks Lifting Comment: No lifting greater than 20 pounds for 2-week Bathing Comment: You may shower, do not soak or scrub the wound for 2 weeks Exercise/Sports: Gradually increase as tolerated Exercise Comment: Gradually increase activity as tolerated, no strenuous activity for 2 weeks Driving/Machine Use: Resume 3 days after discharge Non-emergency contact: Surgeon Call non-emergency contact if: your pain is concerning for you, your temperature is above 101, your wound has increased redness, your wound has increased drainage and your wound pain has increased Follow-up/Referrals: Yomi Pagan DO, FACS [Physician] - (Please call the general surgery clinic to schedule a follow-up with Dr. Pagan in 2 weeks) Endre Sidhu MD [Primary Care Provider] - (Date & Time 10/23/2023 11:10 AM Provider Syl Ontiveros DO Department Family [facility] ) Diet: Regular Addtl Attending Provider Instructions: You may take acetaminophen/Tylenol and ibuprofen or another NSAID of your choice as needed for pain. Please follow manufactures directions. You have been prescribed oxycodone for breakthrough pain. Please take as directed. Start taking metformin after meals twice a day for diabetes. Please follow up with PCP in the future for salvage determiner management. Pending Studies at Discharge: Yes Studies:: Gallbladder pathology Stand-Alone Forms: My [facility] [employer], Smoking Cessation Medications and DC Order Prescriptions: New oxycodone 5 mg tablet 5 - 10 mg PO Q6H PRN (Reason: pain) Qty: 14 0RF metformin 500 mg tablet extended release 24 hr 500 mg PO BID Qty: 60 0RF Continued acetaminophen 500 mg Tablet 1,000 mg PO DIRECTED PRN (Reason: Pain) ibuprofen 200 mg Tablet 400 mg PO DIRECTED PRN (Reason: Pain) Discharge Orders: Discharge Order (Routine); Ordered 10/19/23 Ordered By: Cole Cartagena/Other Patient Handouts: Healthy Meals for Diabetes, Understanding Carbohydrates, Diabetes Food Tips Admission Data Admit Date/Time: 10/18/23 05:11 Attending Provider: Cole Bates Admit Provider: Jett Johnson Primary Care Provider: Ender Sidhu Other Providers: Jett Johnson; Yomi Pagan
[2023-10-19 14:43] VITALS: BP 136/97
== END 2023-10-19 15:53 | disposition home or self-care (01) | DRG 419 ==
LOC: ED 20:49 → EDINP 10-18 05:11 → 2N 10-18 14:15